=== PATIENT | female | born 1945 | race Caucasian/White ===

== ENCOUNTER 2024-02-26 13:42 | Inpatient (IN) | payer MEDICARE, MEDICAID, SELFPAY ==
--- NOTE | 2024-02-26 | ECG_ITS ---
Test Reason : weakness Blood Pressure : / mmHG Vent. Rate : 077 BPM Atrial Rate : 000 BPM P-R Int : 000 ms QRS Dur : 076 ms QT Int : 422 ms P-R-T Axes : 000 049 075 degrees QTc Int : 477 ms Normal sinus rhythm Nonspecific ST and T wave abnormality Abnormal ECG When compared with ECG of 03-OCT-2009 10:29, QT has lengthened Referred By: Generic ED Physician Electronically Signed By:Benjy Alan
--- NOTE | ~2024-02-26 | CT_ITS ---
EXAMINATION: CT ABDOMEN AND PELVIS WITHOUT CONTRAST CLINICAL INFORMATION: Renal colic, hematuria. COMPARISON: None available. TECHNIQUE: Multidetector volumetric imaging was performed from the superior aspect of the liver through the pubic symphysis. Sagittal and coronal reformatted images were obtained on the technologist's workstation. This CT examination was performed using dose optimization techniques as appropriate, variously including the following: *Automated exposure control *Adjustment of mA and/or kV according to patient size (this includes techniques or standardized protocols for targeted exams where dose is matched to indication/reason for exam; i.e. extremities or head) *Use of iterative reconstruction technique DLP: 319 mGy-cm FINDINGS: The lack of intravenous contrast limits evaluation of the solid visceral organs including the liver, spleen, pancreas, and kidneys. LUNG BASES: Group of peribronchial nodules in the lingula largest measuring up to 1 cm (4:29). Few up to 0.4 cm more isolated pulmonary nodules for example in the right lower lobe (4:26) and right middle lobe (4:1). Partially seen multivessel coronary artery calcifications. LIVER, GALLBLADDER, AND BILIARY TREE: Decreased attenuation of liver parenchyma suggesting hepatic steatosis, otherwise the liver is normal in morphology and size without focal lesion. Distortion of the left hepatic lobe with flattening of the contour likely combination of congenital variation as well as some mass effect from increased intra-abdominal fat and overlying transverse colon. The gallbladder is not visualized, either surgically removed or decompressed. The common bile duct is dilated measuring up to 1.1 cm in diameter; scattered calcifications in proximity with the duct appeared to be adjacent rather than intraluminal, although evaluation is limited due to motion and volume averaging. No intrahepatic biliary ductal dilatation. PANCREAS: Marked atrophy with innumerable calcifications suggesting sequela of chronic pancreatitis. The main pancreatic duct is diffusely dilated and slightly beaded measuring up to 0.6 cm in diameter. In the region of the pancreatic head there are scattered areas of soft tissue fullness for example measuring 1.2 x 1.1 cm on image 37 series 3 and 2.4 x 1.8 cm on image 35 series 3 which likely correlate with residual nonatrophic parenchymal islands, though are incompletely characterize in the absence of priors and absence of intravenous contrast. No significant peripancreatic inflammatory changes to suggest acute pancreatitis at this time. SPLEEN: Few splenules are seen. Normal size. ADRENAL GLANDS: Unremarkable. KIDNEYS AND URETERS: Punctate nonobstructive calculus in the upper pole of the right kidney. No hydronephrosis. No perinephric fat stranding. Several benign-appearing low-density cysts, for which no imaging follow-up is recommended. Intermediate density 1 cm partially exophytic observation in the posterior aspect of the upper left kidney (3:29). BLADDER: Unremarkable. GASTROINTESTINAL TRACT: Scattered prominence of the small and large bowel with moderate degree of stool content in the colon and some fecalization of the small bowel. Colonic diverticulosis without significant pericolonic inflammatory changes. ABDOMINAL WALL: No significant hernia is appreciated. LYMPH NODES: No lymphadenopathy. VASCULAR: Severe atherosclerotic disease. 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 PELVIC VISCERA: Hysterectomy. OSSEOUS STRUCTURES: Severe intervertebral disc height loss with endplate degenerative changes and grade 1 anterolisthesis L4-L5. Partially seen total left hip arthroplasty. No acute or aggressive appearing osseous findings. CT/CT abdomen pelvis wo IV con IMPRESSION: Mild diffuse prominence of the small and large bowel with moderate colonic stool burden and small bowel fecalization suggesting ileus or constipation. Chronic pancreatitis with severe atrophy and a beaded dilated duct; regions of soft tissue fullness in the pancreatic head are likely related with residual islands of parenchyma. However, as patients with chronic pancreatitis have elevated risk of pancreatic malignancy, further characterization with outpatient abdominal MRI pancreas protocol is advised. Nonspecific dilatation of the common bile duct. Consider further evaluation with MRCP for choledocholithiasis or other obstructive abnormalities as clinically warranted. There is no significant intrahepatic biliary ductal dilatation. Hepatic steatosis. Intermediate density 1 cm observation in the upper pole of the left kidney, possibly proteinaceous/hemorrhagic cyst, although solid neoplasm is not excluded. Recommend correlation with renal ultrasound. This could also be characterize at the moment of the MRI for the pancreatic evaluation. Incidentally noted pulmonary nodules, including a group of peribronchial nodules in the lingula suspicious for infectious/inflammatory process. Recommend follow-up with CT chest in 3-6 months. 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 Based on published guidelines in J Am Tia Radiol 2013; 10(10):789-794 and J Vasc Surg. 2018; 67:2-77, the recommendation for an abdominal aorta with diameter 2.6-2.9 cm is follow-up every 5 years if the aorta that meets the criteria for AAA (>1.5 x proximal normal segment; no f/u if < 1.5 x proximal normal segment; no f/u for aorta < 2.6 cm). Electronically signed by: Lindsay Phillips MD 02/26/2024 06:46 PM [place]
--- NOTE | ~2024-02-26 | MR_ITS ---
EXAMINATION: MR ABDOMEN WITHOUT AND WITH CONTRAST CLINICAL INFORMATION: ?CBD dilation, renal mass, abnormal pancreas COMPARISON: Renal ultrasound dated 02/26/2024. CT scan of the abdomen and pelvis dated 02/26/2024. TECHNIQUE: An MRI scan of the abdomen was performed using multiple imaging sequences and imaging planes. 5 mL of intravenous Gadavist was given and postcontrast enhanced dynamic evaluation was performed. FINDINGS: LIVER: Liver normal size. There is diffuse loss in signal on the opposed phase dual echo sequences, consistent with diffuse hepatic steatosis.. No focal cystic or solid mass. Hepatic and portal veins patent. GALLBLADDER, BILIARY TREE: Gallbladder is surgically absent. There is mild intrahepatic ductal dilatation. Common bile duct is dilated, measuring up to 0.8 cm in diameter. The MRCP sequences are limited. There is amorphous linear signal seen throughout the common bile duct and extending into the left hepatic duct, likely related to artifactual flow signal. There is no definite evidence of choledocholithiasis or other focal mass. There is low insertion of the cystic duct remnant onto the distal common bile duct. The cystic duct remnant is decompressed and unremarkable. PANCREAS: Markedly atrophic with marked fatty replacement. There is resultant pancreatic ductal dilatation, measuring up to 0.5 cm in diameter in the pancreatic body and 0.7 cm in diameter in the pancreatic head down to the ampulla. The pancreatic duct in the pancreatic tail tapers to 0.2 cm. No obstructing stone or mass is seen. The densities described on CT scan in the pancreatic head likely represent residual nonatrophied pancreatic parenchyma. No definite pancreatic head mass is noted. SPLEEN: Normal size and appearance. Small accessory splenules are seen in the splenic hilar region. Splenic vein patent. ADRENAL GLANDS AND KIDNEYS: Adrenal glands normal. Kidneys bilaterally symmetric in size and function. There are multiple variably sized T2 bright nonenhancing cysts in the kidneys bilaterally, largest of which is an exophytic lower pole right renal 4 x 3.1 cm cyst. Corresponding to the CT scan finding of a 1 cm upper pole left renal hyperdense mass, there is a exophytic 1 x 0.8 cm T1 bright and T2 intermediate dark mass seen, which demonstrates no enhancement postcontrast and is consistent with a hemorrhagic/proteinaceous cyst. These benign cysts warrant no specific imaging follow-up. No suspicious focal renal mass, hydronephrosis, or perinephric stranding. GASTROINTESTINAL TRACT: Grossly within normal limits. LYMPHOVASCULAR STRUCTURES: Abdominal aorta normal in caliber with moderate atherosclerotic plaque seen. No periaortic collections. No abdominal adenopathy or free fluid collection. MUSCULOSKELETAL STRUCTURES: There is severe degenerative disc disease in the L4-5 level with marked disc space narrowing and vertebral endplate irregularities signal changes. Grade 1 anterolisthesis of L4 on L5 is seen with mild posterior disc bulge. There is mild degenerative disc disease at L3-4. MR/MR abdomen wo/w con IMPRESSION: * As noted on the CT scan, there is diffuse atrophy of the pancreas consistent with chronic calcific pancreatitis given the multiple calcifications seen on CT scan. No definite pancreatic head mass is seen. The masslike finding in the pancreatic head on CT scan likely represents residual nonatrophied pancreatic parenchyma. * There is mild intrahepatic and extrahepatic ductal dilatation with the common bile duct measuring up to 0.8 cm in diameter. No definite choledocholithiasis or other focal mass is seen. Findings are likely secondary to the patient's postcholecystectomy state and age. * Diffuse hepatic steatosis. * Benign exophytic upper pole left renal hemorrhagic/proteinaceous cyst. Other scattered bilateral benign simple renal cysts. No imaging follow-up is warranted. * Moderate atherosclerotic disease of the aorta. * Severe degenerative disc disease at L4-5 with grade 1 anterolisthesis of L4 on L5 and mild degenerative disc disease at L3-4. Electronically signed by: Rachelle De La Garza MD 02/28/2024 10:09 AM [place]
--- NOTE | ~2024-02-26 | US_ITS ---
EXAMINATION: US RETROPERITONEAL LIMITED, LEFT(RENAL ONLY) CLINICAL INFORMATION: Left upper pole renal lesion. COMPARISON: CT abdomen/pelvis dated 02/26/2024. TECHNIQUE: Grayscale, Doppler, and cine images of the left kidney were obtained. FINDINGS: LEFT KIDNEY: 8.7 x 4.2 x 3.5 cm (SAG x AP x TRV). The kidney is normal in size and shape. Increased parenchymal echogenicity with cortical thinning which can be seen in the setting of medical renal disease. Multiple simple-appearing renal cysts, the largest of which is within the upper pole measuring up to 1.6 x 1.3 x 1.3 cm. The previously seen exophytic, indeterminate structure on the CT is not well visualized on ultrasound examination. No calculi or hydronephrosis. US/US renal LT IMPRESSION: 1. Previously seen exophytic, indeterminate structure on the CT is not well visualized on ultrasound examination. 2. Increased left renal echogenicity with cortical thinning, which can be seen in the setting of medical renal disease. 3. Multiple simple-appearing left renal cysts measuring up to 1.6 cm. Electronically signed by: Shaun Denson MD 02/27/2024 08:48 AM [facility]
[2024-02-26 13:46] VITALS: BMI 21.1
[2024-02-26 13:52] VITALS: BP 106/67; PULSE 75; RESP 16; TEMP 36.4; O2SAT 98
[2024-02-26 13:55] LABS: Glucose, Whole Blood 44 mg/dL (60-115)
--- NOTE | 2024-02-26 14:00 | PC.NURSE ---
tracey from home - called d/t pt c/o dizziness/weakness/confused after she took a nap and woke up at noon. unable to get up. hx DM - POC upon EMS arrival = 65mg/dL. 10g PO dextrose. s/p dextrose = 61mg/dL. pt verbalizes sx subsided upon ED arrival. upon ED arrival - a&ox4. vss and up to date. 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 POC = 44mg/dL. pt provided w/ orange juice, sugar packets, sandwich, crackers. effectiveness pending. 20gIV placed in the left forearm - labs obtained/sent to lab by [facility]. ekg performed. pt on RA w/o difficulty. no sob/wob noted. respirations even/unlabored. bedside for support. plan of care ongoing. call pérez placed within reach.
[2024-02-26 14:31] LABS: Basophils Percent Auto 0.2 % (0-2); Eosinophils Percent Auto 0.1 % (0-4); Hematocrit 38.4 % (37.0-47.0); Hemoglobin 12.9 g/dl (12.0-16.0); Imm Gran Abs Auto 0.11 X10*3/uL (0.00-0.03); Imm Gran Pct Auto 0.7 % (0.0-0.4); Lymphocytes Absolute Auto 1.7 X10*3/uL (1.2-4.9); Lymphocytes Percent Auto 9.9 % (20-40); MANUAL DIFF FLAG NO; Mean Corpuscular HGB Conc 33.6 g/dl (31.0-35.0); Mean Corpuscular Hemoglobin 30.4 pg (27.0-33.0); Mean Corpuscular Volume 90.6 fL (80.0-98.0); Monocytes Absolute Auto 0.8 X10*3/uL (0.1-1.2); Monocytes Percent Auto 4.8 % (2-11); Neutrophils Absolute Auto 14.1 x10*3/uL (2.0-8.3); Neutrophils Percent Auto 84.3 % (45-73); Platelet Count 358 X10*3/uL (160-400); Red Blood Count 4.24 X10*6/uL (4.20-5.50); Red Cell Distribution Width 14.4 % (11.0-16.0); White Blood Count 16.7 X10*3/uL (4.8-10.8)
[2024-02-26 14:42] LABS: Glucose, Whole Blood 93 mg/dL (60-115)
[2024-02-26 14:44] LABS: Alanine Aminotransferase 152 U/L (0-31); Albumin Level 2.9 g/dL (3.5-5.0); Anion Gap 16 (12-20); Aspartate Amino Transferase 156 U/L (5-31); Bilirubin Total 0.7 mg/dL (0.0-1.0); Blood Urea Nitrogen 32 mg/dL (9-16); Calcium 8.4 mg/dL (8.4-10.2); Carbon Dioxide 21 mmol/L (22-29); Chloride 104 mmol/L (96-108); Creatinine Clr Calc Pharmacy 12.5; Estimated Glomerular Filt Rate 17; Glucose Random 116 mg/dL (60-115); Potassium 3.5 mmol/L (3.3-5.1); Sodium 137 mmol/L (135-145); Total Protein 5.4 g/dL (6.5-8.0)
--- NOTE | 2024-02-26 14:50 | PC.NURSE ---
repeat POC = 93mg/dL s/p PO administration. pt remains in no apparent distress. no sob/wob noted. respirations even/unlabored. plan of care ongoing.
[2024-02-26 15:02] LABS: Alkaline Phosphatase 107 U/L (39-117)
[2024-02-26 16:20] VITALS: BP 104/59; PULSE 83; RESP 16; TEMP 36.2
[2024-02-26 16:30] LABS: Appearance Urine Cloudy; Color Urine Yellow; Glucose Urine UA 500 mg/dL (Negative); Leukocyte Esterase Urine Moderate (2+) (Negative); Nitrite Urine Negative (Negative); PH 5.5 (5.0-9.0); Specific Gravity - Urine 1.015 (1.005-1.025); UMIC TRIGGER UACC YES; Urine Blood Large (3+) (Negative); Urine Ketones Negative (Negative); Urine Protein 30 (1+) mg/dL (Neg-Trace)
[2024-02-26 17:07] LABS: Bacteria Urine None Seen (None Seen); Granular Casts Urine Present; Influenza A PCR NEGATIVE (Negative); Influenza B PCR NEGATIVE (Negative); Renal Epithelial Cells Urine Present; Resp Syncy Virus RNA Qual PCR NEGATIVE (Negative); SARS COV2 PCR INHOUSE POSITIVE (Negative); Transitional Epi Cells Urine Present; UACC Culture Trigger YES; WBC Urine >50 /HPF (0-5)
--- NOTE | 2024-02-26 17:31 | PC.NURSE ---
pt to CT at this time.
[2024-02-26 17:44] LABS: Glucose, Whole Blood 354 mg/dL (60-115)
[2024-02-26] MEDS: 0.9 % Sodium Chloride 1,000 ML 999 ML IV (17:44)
[2024-02-26] MEDS: cefTRIAXone sodium 2 GM VIAL IVPUSH (17:45)
--- NOTE | 2024-02-26 17:56 | PC.NURSE ---
IV dextrose not administered per provider order as pt's most recent POC = 354mg/dL. provider notified/aware. otherwise IVF/abx administered per provider order. pt waiting for CT results to come back at this time. resting in no apparent distress. bedside for support.
[2024-02-26 18:28] VITALS: BP 154/57; PULSE 86; RESP 14; O2SAT 100
--- NOTE | 2024-02-26 18:58 | ED.WEAKNESS ---
HPI - Weakness General Chief complaint: Weakness Stated complaint: WEAKNESS,CONFUSION,DIZZY,LOW BLOOD SUGAR Time Seen by Provider: 02/26/24 15:23 Source: patient Limitations: no limitations History of Present Illness ED Provider: Kristie Spears PA-C HPI Narrative: 78-year-old female with a history of insulin-dependent diabetes presents with a weakness. Patient woke up from a nap this afternoon, she felt extremely weak, her blood sugar was noted to be 65 on arrival. Patient states she is feeling well now she has eaten and drank some juice. Denies recent cough or cold symptoms, nausea, vomiting, fevers, dysuria or hematuria. Patient denies that she took too much of her scheduled insulin. Related Data Allergies Allergy/AdvReac Type Severity Reaction Status Date / Time No Known Allergies Allergy Verified 02/26/24 13:48 Review of Systems Review of Systems: Yes all other systems are reviewed and are negative Constitutional: Constitutional: Denies fatigue, Denies fever(s) and Reports weakness Cardiovascular: Cardiovascular: Denies chest pain and Denies dyspnea Respiratory: Respiratory: Denies cough and Denies dyspnea Gastrointestinal: Gastrointestinal: Denies abdominal pain, Denies diarrhea, Denies nausea and Denies vomiting Genitourinary: Genitourinary: Denies hematuria and Denies dysuria Neurologic: Reports weakness Endocrine: Endocrine: Denies fatigue PMFSH Past Medical History Attestation statement: The following information was validated with the patient. Social History Social History Smoked in Last 30 Days: No Use of substances other than those prescribed or required for medical reasons: No Advance Directives: Yes Advance Directives Information Provided: Yes Advance Directives on File: No Do you have a plan to hurt others: No Plan Physical Exam Vital Signs: Vital Signs: Last Vital Signs Temp 97.2 F 02/26/24 16:20 Pulse 86 02/26/24 18:28 Resp 14 02/26/24 18:28 BP 154/57 H 02/26/24 18:28 Pulse Ox 100 02/26/24 18:28 O2 Del Method Room Air 02/26/24 18:28 BMI result Body Mass Index 21.1 Course Reevaluation(s) Reevaluation #1: Patient is passing a large amount of hematuria, she is not having flank pain or nausea, likely not renal colic, however she should not be passing this much hematuria. We will obtain a CT scan a non-con study. Medications Administered Discontinued Medications Generic Name Dose Route Start Last Admin Trade Name Sam PRN Reason Stop Dose Admin Ceftriaxone Sodium 2 gm 02/26/24 17:20 02/26/24 17:45 Ceftriaxone Sodium 2 Gm Vial IVPUSH 02/26/24 17:21 2 gm ONCE ONE Administration Dextrose 25 gm 02/26/24 17:20 02/26/24 17:40 Dextrose 25 % 2.5 Gm/10 Ml Syringe IVPUSH 02/26/24 17:21 Not Given ONCE ONE Sodium Chloride 1,000 mls @ 999 mls/hr 02/26/24 17:15 02/26/24 17:44 Ns IV 02/26/24 18:15 999 mls/hr .Q1H1M JENIFFER Administration Medical Decision Making Medical Decision Making [facility] Narrative: 78-year-old female with a history of insulin-dependent diabetes presents with a weakness. Patient woke up from a nap this afternoon, she felt extremely weak, her blood sugar was noted to be 65 on arrival. Patient states she is feeling well now she has eaten and drank some juice. Denies recent cough or cold symptoms, nausea, vomiting, fevers, dysuria or hematuria. Patient denies that she took too much of her scheduled insulin. Problem: Insulin dependent diabetes History: Per patient I have considered the following differential diagnoses: Plan: In regard to the weakness, the patient woke with the hypoglycemia, this makes sense. Her screening labs have resulted, she has a significant ANGELA, this most certainly could be contributory. We rechecked her sugar it is greater than 300 at this time, we will start IV fluid. The patient is giving a urine sample now. I am also adding a viral panel, despite the absence of concurrent viral syndrome. I have independently reviewed the following tests: Labs: Leukocytosis with left shift, not anemic, no electrolyte abnormality, point of care sugar 44, then 93, then 354 after food, urine is questionable for infection, passing a large amount of blood, numerous white cells, however no nitrites or bacteria, likely contaminated sample, patient positive for COVID CT abdomen and pelvis: CT/CT abdomen pelvis wo IV con IMPRESSION: Mild diffuse prominence of the small and large bowel with moderate colonic stool burden and small bowel fecalization suggesting ileus or constipation. Chronic pancreatitis with severe atrophy and a beaded dilated duct; regions of soft tissue fullness in the pancreatic head are likely related with residual islands of parenchyma. However, as patients with chronic pancreatitis have elevated risk of pancreatic malignancy, further characterization with outpatient abdominal MRI pancreas protocol is advised. Nonspecific dilatation of the common bile duct. Consider further evaluation with MRCP for choledocholithiasis or other obstructive abnormalities as clinically warranted. There is no significant intrahepatic biliary ductal dilatation. Hepatic steatosis. Intermediate density 1 cm observation in the upper pole of the left kidney, possibly proteinaceous/hemorrhagic cyst, although solid neoplasm is not excluded. Recommend correlation with renal ultrasound. This could also be characterize at the moment of the MRI for the pancreatic evaluation. Incidentally noted pulmonary nodules, including a group of peribronchial nodules in the lingula suspicious for infectious/inflammatory process. Recommend follow-up with CT chest in 3-6 months. 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 Based on published guidelines in J Am Tia Radiol 2013; 10(10):789-794 and J Vasc Surg. 2018; 67:2-77, the recommendation for an abdominal aorta with diameter 2.6-2.9 cm is follow-up every 5 years if the aorta that meets the criteria for AAA (>1.5 x proximal normal segment; no f/u if < 1.5 x proximal normal segment; no f/u for aorta < 2.6 cm). Electronically signed by: Lindsay Phillips MD 02/26/2024 06:46 PM [facility] With this new finding of a left renal mass that potentially could be a neoplasm, with concurrent hematuria, and an ANGELA, I feel the patient should be admitted for further assessment. Lab Data 02/26/24 14:18 02/26/24 14:18 Labs: Lab Results 02/26/24 02/26/24 02/26/24 Range/Units 13:52 14:18 14:36 WBC 16.7 H (4.8-10.8) X10*3/uL RBC 4.24 (4.20-5.50) X10*6/uL Hgb 12.9 (12.0-16.0) g/dl Hct 38.4 (37.0-47.0) % MCV 90.6 (80.0-98.0) fL MCH 30.4 (27.0-33.0) pg MCHC 33.6 (31.0-35.0) g/dl RDW 14.4 (11.0-16.0) % Plt Count 358 (160-400) X10*3/uL MPV 10.0 (9.4-12.3) fL Immature Gran % (Auto) 0.7 H (0.0-0.4) % Neut % (Auto) 84.3 H (45-73) % Lymph % (Auto) 9.9 L (20-40) % [place] % (Auto) 4.8 (2-11) % Eos % (Auto) 0.1 (0-4) % Baso % (Auto) 0.2 (0-2) % Lymph # (Auto) 1.7 (1.2-4.9) X10*3/uL [place] # (Auto) 0.8 (0.1-1.2) X10*3/uL Eos # (Auto) 0.0 (0.0-0.4) X10*3/uL Baso # (Auto) 0.0 (0.0-0.2) X10*3/uL Abs Immat Gran (auto) 0.11 H (0.00-0.03) X10*3/uL Absolute Neuts (auto) 14.1 H (2.0-8.3) x10*3/uL Absolute Nucleated RBC 0.000 (0.0-0.012) X10*3/uL Nucleated RBC % (auto) 0.0 (0.0-0.2) /100WBC Sodium 137 (135-145) mmol/L Potassium 3.5 (3.3-5.1) mmol/L Chloride 104 (96-108) mmol/L Carbon Dioxide 21 L (22-29) mmol/L Anion Gap 16 (12-20) BUN 32 H (9-16) mg/dL Creatinine 2.75 H (0.5-1.4) mg/dL Estim Creat Clear Calc 12.5 Estimated GFR 17 POC Glucose 44 L* 93 (60-115) mg/dL Random Glucose 116 H (60-115) mg/dL Calcium 8.4 (8.4-10.2) mg/dL Total Bilirubin 0.7 (0.0-1.0) mg/dL AST 156 H (5-31) U/L ALT 152 H (0-31) U/L Alkaline Phosphatase 107 (39-117) U/L Total Protein 5.4 L (6.5-8.0) g/dL Albumin 2.9 L (3.5-5.0) g/dL Urine Color Urine Appearance Urine pH (5.0-9.0) Ur Specific [place] (1.005-1.025) Urine Protein (Neg-Trace) mg/dL Urine Glucose (UA) (Negative) mg/dL Urine Ketones (Negative) mg/dL Urine Blood (Negative) Urine Nitrite (Negative) Ur Leukocyte Esterase (Negative) Urine RBC (0-2) /HPF Urine WBC (0-5) /HPF Ur Squamous Epith Cells (0-2) /HPF Ur Transition Epith Cell Ur Renal Epithelial Cell Urine Bacteria (None Seen) Hyaline Casts (0-2) /LPF Granular Casts Influenza Type A (PCR) (Negative) Influenza Type B (PCR) (Negative) RSV RNA Qual (PCR) (Negative) SARS-CoV-2 RNA (RT-PCR) (Negative) 02/26/24 02/26/24 Range/Units 16:18 17:39 WBC (4.8-10.8) X10*3/uL RBC (4.20-5.50) X10*6/uL Hgb (12.0-16.0) g/dl Hct (37.0-47.0) % MCV (80.0-98.0) fL MCH (27.0-33.0) pg MCHC (31.0-35.0) g/dl RDW (11.0-16.0) % Plt Count (160-400) X10*3/uL MPV (9.4-12.3) fL Immature Gran % (Auto) (0.0-0.4) % Neut % (Auto) (45-73) % Lymph % (Auto) (20-40) % [place] % (Auto) (2-11) % Eos % (Auto) (0-4) % Baso % (Auto) (0-2) % Lymph # (Auto) (1.2-4.9) X10*3/uL [place] # (Auto) (0.1-1.2) X10*3/uL Eos # (Auto) (0.0-0.4) X10*3/uL Baso # (Auto) (0.0-0.2) X10*3/uL Abs Immat Gran (auto) (0.00-0.03) X10*3/uL Absolute Neuts (auto) (2.0-8.3) x10*3/uL Absolute Nucleated RBC (0.0-0.012) X10*3/uL Nucleated RBC % (auto) (0.0-0.2) /100WBC Sodium (135-145) mmol/L Potassium (3.3-5.1) mmol/L Chloride (96-108) mmol/L Carbon Dioxide (22-29) mmol/L Anion Gap (12-20) BUN (9-16) mg/dL Creatinine (0.5-1.4) mg/dL Estim Creat Clear Calc Estimated GFR POC Glucose 354 H* (60-115) mg/dL Random Glucose (60-115) mg/dL Calcium (8.4-10.2) mg/dL Total Bilirubin (0.0-1.0) mg/dL AST (5-31) U/L ALT (0-31) U/L Alkaline Phosphatase (39-117) U/L Total Protein (6.5-8.0) g/dL Albumin (3.5-5.0) g/dL Urine Color Yellow Urine Appearance Cloudy Urine pH 5.5 (5.0-9.0) Ur Specific [place] 1.015 (1.005-1.025) Urine Protein 30 (1+) H (Neg-Trace) mg/dL Urine Glucose (UA) 500 H (Negative) mg/dL Urine Ketones Negative (Negative) mg/dL Urine Blood Large (3+) H (Negative) Urine Nitrite Negative (Negative) Ur Leukocyte Esterase Moderate (2+) H (Negative) Urine RBC 11-20 H (0-2) /HPF Urine WBC >50 H (0-5) /HPF Ur Squamous Epith Cells 6-10 (0-2) /HPF Ur Transition Epith Cell Present Ur Renal Epithelial Cell Present Urine Bacteria None Seen (None Seen) Hyaline Casts 11-20 (0-2) /LPF Granular Casts Present Influenza Type A (PCR) NEGATIVE (Negative) Influenza Type B (PCR) NEGATIVE (Negative) RSV RNA Qual (PCR) NEGATIVE (Negative) SARS-CoV-2 RNA (RT-PCR) POSITIVE A (Negative) Discharge Plan Discharge Patient Disposition: Admitted As Inpatient Print Language: Rw[place]an
--- NOTE | 2024-02-26 19:01 | PC.NURSE ---
Karthik ([facility]) [phone]
[2024-02-26 19:26] VITALS: BP 138/77; PULSE 85; RESP 11
--- NOTE | 2024-02-26 19:49 | PM.IMHP ---
History of Present Illness Date of Service: 02/26/24 Attending physician on admission: Celestine Elliott Chief Complaint: Weakeness, dizziness Pt is a 78-year-old female with a PMH significant for?HTN, CAD/HLD, insulin-dependent type 2 diabetes, peripheral neuropathy, CKD 3, migraines, and GERD who presents to the ED with weakness, confusion, and lethargy. Pt does not remember any events this morning until EMS administered 10g dextrose p.o. reports he went to check on the pt since she was sleeping late and found her to be lethargic, weak, and confused. Was unable to get out of bed. He was able to bring her to the top of the stairs but had to call EMS to help bring her down the stairs. Pt currently reports feeling fine overall, though has has occasionally productive cough and felt weak x4 days. Denies SOB or CHIANG. Notes attended a wake for her sister two days prior to symptom onset. Was prescribed an antibiotic by her concession attendant Dr. Perez of [facility] [place] but has not yet started taking it. States has been eating and drinking normally. No changes to bowel or bladder habits. Denies dysuria or polyuria. No nausea, vomiting, diarrhea. Last bowel movement earlier this evening, reports usually having 1-2 bowel movements daily. Denies abdominal pain. In the ED pt's vitals were stable and largely WNL. Labs were significant for leukocytosis of 16.7, BUN 32 , creatinine 2.75 (elevated from 1.08 on 07/08/2019), initial POC 44, AST 156, ALT 152, and testing positive for COVID. UA positive for protein, glucose, blood, leukocyte esterase, 11-20 RBCs, greater than 50 WBCs, 6-10 epithelial cells, and negative for nitrites and bacteria. CT?of abdomen and pelvis with multiple findings: Showed mild diffuse prominence of small and large bowels with moderate colonic stool burden and small bowel fecalization, suggesting ileus versus constipation; chronic pancreatitis with severe atrophy and beaded dilated duct; nonspecific dilatation of the CBD; intermediate density of 1cm in upper pole of the left kidney, cyst vs neoplasm; and intrarenal abdominal aorta 2.8cm. Pt was treated with dextrose 25 g IV, IVF, and ceftriaxone. Pt will be admitted to the hospital for treatment and further evaluation generalized weakness, confusion, hypoglycemia, and ANGELA in the setting of COVID infection. Review of Systems Review of Systems: Negative except for that which is stated in the [facility] Medical History (Updated 02/26/24 @ 21:51 by ROSE White) Peripheral neuropathy Insulin dependent type 2 diabetes mellitus CAD (coronary artery disease) HTN (hypertension) Social History Smoked in Last 30 Days: No Use of substances other than those prescribed or required for medical reasons: No Advance Directives: Yes Advance Directives Information Provided: Yes Advance Directives on File: No Do you have a plan to hurt others: No Plan Meds Allergies Allergy/AdvReac Type Severity Reaction Status Date / Time No Known Allergies Allergy Verified 02/26/24 13:48 Home Medications ?Medication ?Instructions ?Recorded ?Confirmed ?Last Taken ?Type albuterol sulfate 90 mcg/actuation 2 puff inhalation Q4H PRN 02/26/24 02/26/24 Unknown History aerosol inhaler Shortness Of Breath Or Wheezing atenolol 50 mg tablet 50 mg PO DAILY 02/26/24 02/26/24 02/25/24 History cefaclor 250 mg capsule 250 mg PO DAILY 02/26/24 02/26/24 02/25/24 History clopidogrel 75 mg tablet 75 mg PO DAILY 02/26/24 02/26/24 02/25/24 History empagliflozin 10 mg tablet 10 mg PO DAILY 02/26/24 02/26/24 02/25/24 History (Jardiance) gabapentin 400 mg capsule 400 mg PO BID@2029,222902/26/24 02/26/24 02/25/24 History hydrochlorothiazide 25 mg tablet 25 mg PO DAILY 02/26/24 02/26/24 02/25/24 History insulin glargine 100 unit/mL (3 62 unit subcut DAILY 02/26/24 02/26/24 02/25/24 History mL) subcutaneous pen (Basaglar KwikPen U-100 Insulin) meclizine 25 mg tablet 25 mg PO QID 02/26/24 02/26/24 02/25/24 History montelukast 10 mg tablet 10 mg PO BEDTIME 02/26/24 02/26/24 02/25/24 History omeprazole 40 mg capsule,delayed 40 mg PO BID@0630,1630 02/26/24 02/26/24 02/25/24 History release potassium chloride 20 mEq 20 meq PO DAILY 02/26/24 02/26/24 02/25/24 History tablet,extended release ropinirole 2 mg tablet 2 mg PO BEDTIME@0830 02/26/24 02/26/24 02/25/24 History rosuvastatin 40 mg tablet 40 mg PO DAILY 02/26/24 02/26/24 02/25/24 History semaglutide 1 mg/dose (4 mg/3 mL) 1 mg subcut FR 02/26/24 02/26/24 02/19/24 History subcutaneous pen injector (Ozempic) sumatriptan succinate 100 mg tablet 100 mg PO NEEDED migraine 02/26/24 02/26/24 Unknown History trospium 20 mg tablet 20 mg PO BID 02/26/24 02/26/24 02/25/24 History valsartan 160 mg tablet 160 mg PO DAILY 02/26/24 02/26/24 02/25/24 History zolpidem 5 mg tablet 5 mg PO BEDTIME PRN insomnia 02/26/24 02/26/24 Unknown History Physical Exam Vital Signs and Narrative: Vital Signs: Last Vital Signs Temp 97.2 F 02/26/24 16:20 Pulse 85 02/26/24 19:26 Resp 11 L 02/26/24 19:26 BP 138/77 02/26/24 19:26 Pulse Ox 100 02/26/24 18:28 O2 Del Method Room Air 02/26/24 18:28 BMI result Body Mass Index 21.1 General: AOx3, no acute distress Resp: CTA bilaterally CVS: S1, S2, RRR GI: +BS, NT, no distention Skin: Warm, dry Neuro: Cranial nerves II-XII grossly intact bilaterally. Motor grossly intact bilaterally Extremities: No edema Psych: Appropriate affect Results Labs 02/26/24 14:18 02/26/24 14:18 Labs: Laboratory Results - last 24 hr 02/26/24 02/26/24 02/26/24 13:52 14:18 14:36 MCV 90.6 MCH 30.4 MCHC 33.6 RDW 14.4 Plt Count 358 MPV 10.0 Immature Gran % (Auto) 0.7 H Neut % (Auto) 84.3 H Lymph % (Auto) 9.9 L Wallace % (Auto) 4.8 Eos % (Auto) 0.1 Baso % (Auto) 0.2 Lymph # (Auto) 1.7 Wallace # (Auto) 0.8 Eos # (Auto) 0.0 Baso # (Auto) 0.0 Abs Immat Gran (auto) 0.11 H Absolute Neuts (auto) 14.1 H Absolute Nucleated RBC 0.000 Nucleated RBC % (auto) 0.0 Anion Gap 16 Estim Creat Clear Calc 12.5 Estimated GFR 17 POC Glucose 44 L* 93 Random Glucose 116 H Calcium 8.4 Total Bilirubin 0.7 AST 156 H ALT 152 H Alkaline Phosphatase 107 Total Protein 5.4 L Albumin 2.9 L Urine Color Urine Appearance Urine pH Ur Specific [place] Urine Protein Urine Glucose (UA) Urine Ketones Urine Blood Urine Nitrite Ur Leukocyte Esterase Urine RBC Urine WBC Ur Squamous Epith Cells Ur Transition Epith Cell Ur Renal Epithelial Cell Urine Bacteria Hyaline Casts Granular Casts Influenza Type A (PCR) Influenza Type B (PCR) RSV RNA Qual (PCR) SARS-CoV-2 RNA (RT-PCR) 02/26/24 02/26/24 16:18 17:39 MCV MCH MCHC RDW Plt Count MPV Immature Gran % (Auto) Neut % (Auto) Lymph % (Auto) Wallace % (Auto) Eos % (Auto) Baso % (Auto) Lymph # (Auto) Wallace # (Auto) Eos # (Auto) Baso # (Auto) Abs Immat Gran (auto) Absolute Neuts (auto) Absolute Nucleated RBC Nucleated RBC % (auto) Anion Gap Estim Creat Clear Calc Estimated GFR POC Glucose 354 H* Random Glucose Calcium Total Bilirubin AST ALT Alkaline Phosphatase Total Protein Albumin Urine Color Yellow Urine Appearance Cloudy Urine pH 5.5 Ur Specific [place] 1.015 Urine Protein 30 (1+) H Urine Glucose (UA) 500 H Urine Ketones Negative Urine Blood Large (3+) H Urine Nitrite Negative Ur Leukocyte Esterase Moderate (2+) H Urine RBC 11-20 H Urine WBC >50 H Ur Squamous Epith Cells 6-10 Ur Transition Epith Cell Present Ur Renal Epithelial Cell Present Urine Bacteria None Seen Hyaline Casts 11-20 Granular Casts Present Influenza Type A (PCR) NEGATIVE Influenza Type B (PCR) NEGATIVE RSV RNA Qual (PCR) NEGATIVE SARS-CoV-2 RNA (RT-PCR) POSITIVE A Imaging Radiologist's Impressions: Impressions Abdomen/Pelvis CT 02/26/24 17:32 IMPRESSION: Mild diffuse prominence of the small and large bowel with moderate colonic stool burden and small bowel fecalization suggesting ileus or constipation. Chronic pancreatitis with severe atrophy and a beaded dilated duct; regions of soft tissue fullness in the pancreatic head are likely related with residual islands of parenchyma. However, as patients with chronic pancreatitis have elevated risk of pancreatic malignancy, further characterization with outpatient abdominal MRI pancreas protocol is advised. Nonspecific dilatation of the common bile duct. Consider further evaluation with MRCP for choledocholithiasis or other obstructive abnormalities as clinically warranted. There is no significant intrahepatic biliary ductal dilatation. Hepatic steatosis. Intermediate density 1 cm observation in the upper pole of the left kidney, possibly proteinaceous/hemorrhagic cyst, although solid neoplasm is not excluded. Recommend correlation with renal ultrasound. This could also be characterize at the moment of the MRI for the pancreatic evaluation. Incidentally noted pulmonary nodules, including a group of peribronchial nodules in the lingula suspicious for infectious/inflammatory process. Recommend follow-up with CT chest in 3-6 months. 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 Based on published guidelines in J Am Tia Radiol 2013; 10(10):789-794 and J Vasc Surg. 2018; 67:2-77, the recommendation for an abdominal aorta with diameter 2.6-2.9 cm is follow-up every 5 years if the aorta that meets the criteria for AAA (>1.5 x proximal normal segment; no f/u if < 1.5 x proximal normal segment; no f/u for aorta < 2.6 cm). Electronically signed by: Lindsay Phillips MD 02/26/2024 06:46 PM EST Assessment and Plan (1) ANGELA (acute kidney injury): Status: Acute (2) Hypoglycemia: Status: Acute Plan Pt is a 78-year-old female with a PMH significant for?HTN, CAD/HLD, COPD, insulin-dependent type 2 diabetes, peripheral neuropathy, CKD 3, migraines, and GERD who presents to the ED with weakness, confusion, and lethargy. Pt will be admitted to the hospital for treatment and further evaluation generalized weakness, confusion, hypoglycemia, and ANGELA in the setting of COVID infection. ANGELA Creatinine 2.75 at time of presentation Last creatinine in system 1.08 on 07/08/19, unknown current baseline [place] [facility] Received IVF in the ED Will place on maintenance fluids Attempt to get recent labs [place] [facility] [place] Hold hydrochlorothiazide, valsartan Neprhology consult Check CPK Trend renal function Hypoglycemia Initial POC 65 by EMS, 44 at time of presentation to ED Pt received 10 g p.o. dextrose, food and juice Place on sliding scale insulin, Lantus Hold Jardiance Diabetic diet Acute COVID infection Pt with fatigue, cough x4 days Attended wake 2 days prior to symptom onset Not hypoxic Treat symptomatically Airborne and contact precautions Weakness, lethargy, confusion Pt unable to get out of bed or ambulate this morning Likely multifactorial: in the setting of COVID and hypoglycemia Treat as above PT consult Question of left renal mass Will get left renal US Consider urology consult depending on findings Abnormal UA Likely contaminated Will empirically treat with ceftriaxone, started 02/26/2024 No sepsis: Leukocytosis secondary to viral COVID infection Follow urine cultures Chronic pancreatitis Recommendation is for outpatient MRI w/contrast of pancreas CAD/HLD Continue statin, Plavix HTN Continue atenolol Hold hydrochlorothiazide and valsartan due to ANGELA COPD Not in acute exacerbation Continue home inhalers Peripheral neuropathy Continue gabapentin, ropinirole Full Code Attending:?Dr. Mata DVT Prophylaxis: Heparin Pt will require a hospitalization of at least two nights for treatment of?hypoglycemia, ANGELA, weakness, and confusion in the setting of acute COVID infection. Patient will require administration of IV fluids, close monitoring of labs, and specialist consultation with Nephrology. Quality Stroke Does the patient have a stroke diagnosis?: No VTE Prior VTE?: No VTE Risk Level:: Medical - moderate - high VTE Device Contraindication: Treatment Not Indicated VTE Drug Contraindication: N/A - Med Ordered
--- NOTE | 2024-02-26 20:43 | PHA.MEDREC ---
Addendum entered by Giuseppe Mcbride [facility] 02/26/24 20:58: Med rec reviewed Original Note: Pharmacy Consult ? Medication Reconciliation Pharmacy has completed the medication reconciliation. Confirmed medications with patient. She just recently saw her Dr on Thursday and she took her off Vitamin D2 and Gemtesa 75mg tab. She confirmed she has not started the Azithromycin 250mg regimen and states she just picked it up yesterday. She confirmed her Basalglar KwikPen and states she was doing 32 units BID but she went and talked to her daughter and they approved the patient to start doing 62 units at bedtime and the patient has been doing better taking it like that. She confirmed she is taking the Ozempic 1 mg/dose (4 mg/3 mL) once a week and stated she was due today but was not able to do it today but confirmed she took it last Sunday 02/18. She confirmed she took all her medications yesterday.
[2024-02-26] MEDS: Lactated Ringers 1,000 ML 100 ML IVCONT (21:49)
[2024-02-26] MEDS: Meclizine HCl 25 MG TABLET PO (22:40)
[2024-02-26] MEDS: rOPINIRole HCL 2 MG TABLET PO (22:41)
[2024-02-26] MEDS: Montelukast Sodium 10 MG TABLET PO (22:41)
[2024-02-26] MEDS: Heparin Sodium,Porcine 5,000 UNIT/ML VIAL 5000 UNIT SUBCUT (22:41)
[2024-02-26] MEDS: Gabapentin 400 MG CAPSULE PO (23:40)
[2024-02-27 00:59] VITALS: BP 133/80; PULSE 83; RESP 13; TEMP 36.7; O2SAT 100
--- NOTE | 2024-02-27 01:43 | PC.NURSE ---
Patient is alert and oriented x4, pleasant and cooperative, resting on a stretcher bed, watching TV. VSS. Patient denies any pain. Patient requested and given юлия donovan, turkey sandwich, and cheese stick, tolerated well. 20 G IV line in L forearm is patient with LR infusing at 100 ml/hr. Skin is intact. Patient noted to be ambulating to the restroom independently with a steady gait.
[2024-02-27 04:58] VITALS: BP 143/79; PULSE 86; RESP 14; TEMP 36.6; O2SAT 99
[2024-02-27 05:36] VITALS: BMI 20.6
[2024-02-27] MEDS: Omeprazole 40 MG CAPSULE.DR PO ×2 (05:37→18:40)
[2024-02-27 07:33] VITALS: BP 112/60; PULSE 82; RESP 18; TEMP 37.1; O2SAT 97
[2024-02-27 07:52] LABS: Glucose, Whole Blood 36 mg/dL (60-115)
[2024-02-27 08:21] LABS: Glucose, Whole Blood 93 mg/dL (60-115)
[2024-02-27 08:28] LABS: Hematocrit 33.7 % (37.0-47.0); Hemoglobin 11.4 g/dl (12.0-16.0); Mean Corpuscular HGB Conc 33.8 g/dl (31.0-35.0); Mean Corpuscular Hemoglobin 29.8 pg (27.0-33.0); Mean Corpuscular Volume 88.2 fL (80.0-98.0); Mean Platelet Volume 9.9 fL (9.4-12.3); Platelet Count 280 X10*3/uL (160-400); Red Blood Count 3.82 X10*6/uL (4.20-5.50); Red Cell Distribution Width 14.1 % (11.0-16.0); White Blood Count 12.4 X10*3/uL (4.8-10.8)
[2024-02-27 08:54] LABS: Estimated Average Glucose 131 mg/dL; Hemoglobin A1C 140.4996 umol/L; Hemoglobin A1c % 6.2 % (<6.0); Total Hemoglobin (HGBA1C) 3152.5659 umol/L
[2024-02-27 09:05] LABS: Alanine Aminotransferase 179 U/L (0-31); Albumin Level 2.8 g/dL (3.5-5.0); Aspartate Amino Transferase 217 U/L (5-31); Bilirubin Direct 0.2 mg/dL (0.0-0.5); Bilirubin Total 0.4 mg/dL (0.0-1.0)
[2024-02-27 09:15] LABS: Anion Gap 15 (12-20); Blood Urea Nitrogen 24 mg/dL (9-16); Calcium 8.1 mg/dL (8.4-10.2); Carbon Dioxide 21 mmol/L (22-29); Chloride 101 mmol/L (96-108); Creatinine Clr Calc Pharmacy 17.4; Estimated Glomerular Filt Rate 25; Glucose Random 73 mg/dL (60-115); Potassium 2.8 mmol/L (3.3-5.1); Sodium 134 mmol/L (135-145)
[2024-02-27] MEDS: atenoloL 50 MG TABLET PO (09:26)
[2024-02-27] MEDS: Meclizine HCl 25 MG TABLET PO ×4 (09:26→22:26)
[2024-02-27] MEDS: Potassium Chloride ER 20 MEQ TAB.ER.PRT PO (09:26)
[2024-02-27] MEDS: Clopidogrel Bisulfate 75 MG TABLET PO (09:26)
[2024-02-27] MEDS: 0.9 % Sodium Chloride Flush 3 ML SYRINGE IVFLUSH ×2 (09:27→18:40)
[2024-02-27] MEDS: Heparin Sodium,Porcine 5,000 UNIT/ML VIAL 5000 UNIT SUBCUT ×2 (09:27→22:26)
[2024-02-27 09:45] LABS: Alkaline Phosphatase 94 U/L (39-117)
--- NOTE | 2024-02-27 09:52 | MHC.CM.PN ---
Addendum entered by Mary Grace Goins 02/27/24 11:33: Per pts request, a new HCP was completed, now on file. Original Note: IMM 02/26. Pt self-care, lives at home with her . Pts or son to transport her home at discharge. Pt states her is her HCP, copy requested. PCP: Dr. Jose Diaz
[2024-02-27 11:08] LABS: Glucose, Whole Blood 117 mg/dL (60-115)
--- NOTE | 2024-02-27 11:11 | HO.PM.IMPN ---
Subjective Subjective Date of Service: 02/27/24 Interval History: seen and examined this morning follow up for hyponatremia, ANGELA blood sugar 36 this am, patient awake, alert but feeling shaky; improved with po intake no abdominal pain mild cough, no sob, no fever Review of Systems Review of Systems: Yes all other systems are reviewed and are negative Constitutional Constitutional: Denies chills and Reports fever(s) Cardiovascular Cardiovascular: Denies chest pain, Denies palpitations and Denies dyspnea Respiratory Respiratory: Denies dyspnea Endocrine Endocrine: Denies palpitations Physical Exam Vital Signs: Vital Signs: Last Vital Signs Temp 98.8 F 02/27/24 07:33 Pulse 82 02/27/24 07:33 Resp 18 02/27/24 07:33 BP 112/60 02/27/24 07:33 Pulse Ox 97 02/27/24 07:33 O2 Del Method Room Air 02/27/24 07:33 BMI result Body Mass Index 20.6 Const: General: cooperative, comfortable, no acute distress, alert and awake Orientation/consciousness: patient oriented x3 Resp: Effort & Inspection: normal respiratory effort, able to speak in complete sentences, no respiratory distress and no use of accessory muscles Auscultation: clear to auscultation bilaterally Cardio: Rate: regular rate GI: Inspection: No distended Palpation (GI): Soft to palpation and nontender Neuro: General: patient oriented x3, moves all extremities and CN's II-XI intact bilaterally Extrem: General: Yes no pedal edema Objective Data Active Medications Acetaminophen (Acetaminophen 325 Mg Tablet) 650 mg PO Q6H PRN PRN Reason: Pain, Mild (Pain Scale 1-3), fever or headache Albuterol Sulfate (Albuterol Sulfate 90 Mcg 8 Gm Inhaler) 2 puff INHALE Q4H PRN PRN Reason: Shortness Of Breath Or Wheezing Atenolol (Atenolol 50 Mg Tablet) 50 mg PO DAILY [facility]; Protocol Last Admin: 02/27/24 09:26 Dose: 50 mg Documented By: CELINA Calcium Carbonate (Calcium Carbonate 750 Mg Tab.Chew) 750 mg PO Q4H PRN PRN Reason: Heartburn Ceftriaxone Sodium (Ceftriaxone Sodium 1 Gm Vial) 1 gm IVPUSH Q24H [facility] Clopidogrel Bisulfate (Clopidogrel Bisulfate 75 Mg Tablet) 75 mg PO DAILY [facility] Last Admin: 02/27/24 09:26 Dose: 75 mg Documented By: CELINA Gabapentin (Gabapentin 400 Mg Capsule) 400 mg PO BID@2030,2230 [facility] Last Admin: 02/27/24 02:50 Dose: Not Given Documented By: VENTURA Non-Admin Reason: Duplicate entry Glucose (Glucose Gel 15 Gm Gel..Gram.) 15 gm PO Q15M PRN; Protocol PRN Reason: per Hypoglycemia Standing Ord. Guaifenesin/Dextromethorphan (Guaifenesin Dm 200/20/10 Ml 10 Ml Syrup) 10 ml PO Q4H PRN PRN Reason: Cough Heparin Sodium (Porcine) (Heparin Sodium,Porcine 5,000 Unit/Ml Vial) 5,000 unit SUBCUT Q12H [facility] Last Admin: 02/27/24 09:27 Dose: 5,000 unit Documented By: CELINA Dextrose (D10) 250 mls @ 750 mls/hr IV Q15M PRN; Protocol PRN Reason: per Hypoglycemia Standing Ord. Insulin Human Lispro (Insulin Lispro 100 Unit/Ml 3 Ml Vial) 0 unit SUBCUT QIDACHS [facility]; Protocol Last Admin: 02/27/24 08:35 Dose: Not Given Documented By: CELINA Non-Admin Reason: No Insulin Coverage Magnesium Hydroxide (Milk Of Magnesia 30 Ml Oral.Susp) 30 ml PO DAILY PRN PRN Reason: Constipation Meclizine HCl (Meclizine Hcl 25 Mg Tablet) 25 mg PO QID [facility] Last Admin: 02/27/24 09:26 Dose: 25 mg Documented By: CELINA Melatonin (Melatonin 3 Mg Tablet) 6 mg PO BEDTIME PRN PRN Reason: Insomnia Montelukast Sodium (Montelukast Sodium 10 Mg Tablet) 10 mg PO BEDTIME [facility] Last Admin: 02/26/24 22:41 Dose: 10 mg Documented By: VENTURA Omeprazole (Omeprazole 40 Mg Capsule.) 40 mg PO BID@0630,1630 [facility] Last Admin: 02/27/24 05:37 Dose: 40 mg Documented By: YANET Ondansetron HCl (Ondansetron Hcl 4 Mg/2 Ml Vial) 4 mg IVPUSH Q8H PRN PRN Reason: Nausea and Vomiting Potassium Chloride (Potassium Chloride Er 20 Meq Tab.Er.Prt) 20 meq PO DAILY [facility] Last Admin: 02/27/24 09:26 Dose: 20 meq Documented By: CELINA Ropinirole HCl (Ropinirole Hcl 2 Mg Tablet) 2 mg PO BEDTIME@2030 [facility] Last Admin: 02/26/24 22:41 Dose: 2 mg Documented By: VENTUAR Sodium Chloride (0.9 % Sodium Chloride Flush 3 Ml Syringe) 3 ml IVFLUSH QSHIFT [facility] Last Admin: 02/27/24 09:27 Dose: 3 ml Documented By: CELINA Sumatriptan Succinate (Sumatriptan Succinate 100 Mg Tablet) 100 mg PO DAILY PRN PRN Reason: Migraine Headache Zolpidem Tartrate (Zolpidem Tartrate 5 Mg Tablet) 5 mg PO BEDTIME PRN PRN Reason: insomnia Labs 02/27/24 08:01 02/27/24 08:01 Labs: Laboratory Results - last 24 hr 02/26/24 02/26/24 02/26/24 13:52 14:18 14:36 MCV 90.6 MCH 30.4 MCHC 33.6 RDW 14.4 Plt Count 358 MPV 10.0 Immature Gran % (Auto) 0.7 H Neut % (Auto) 84.3 H Lymph % (Auto) 9.9 L [place] % (Auto) 4.8 Eos % (Auto) 0.1 Baso % (Auto) 0.2 Lymph # (Auto) 1.7 [place] # (Auto) 0.8 Eos # (Auto) 0.0 Baso # (Auto) 0.0 Abs Immat Gran (auto) 0.11 H Absolute Neuts (auto) 14.1 H Absolute Nucleated RBC 0.000 Nucleated RBC % (auto) 0.0 Anion Gap 16 Estim Creat Clear Calc 12.5 Estimated GFR 17 POC Glucose 44 L* 93 Random Glucose 116 H Estimat Average Glucose Hemoglobin A1c % Calcium 8.4 Total Bilirubin 0.7 Direct Bilirubin AST 156 H ALT 152 H Alkaline Phosphatase 107 Total Creatine Kinase 1012 H Total Protein 5.4 L Albumin 2.9 L Urine Color Urine Appearance Urine pH Ur Specific [place] Urine Protein Urine Glucose (UA) Urine Ketones Urine Blood Urine Nitrite Ur Leukocyte Esterase Urine RBC Urine WBC Ur Squamous Epith Cells Ur Transition Epith Cell Ur Renal Epithelial Cell Urine Bacteria Hyaline Casts Granular Casts Influenza Type A (PCR) Influenza Type B (PCR) RSV RNA Qual (PCR) SARS-CoV-2 RNA (RT-PCR) 02/26/24 02/26/24 02/27/24 16:18 17:39 07:41 MCV MCH MCHC RDW Plt Count MPV Immature Gran % (Auto) Neut % (Auto) Lymph % (Auto) [place] % (Auto) Eos % (Auto) Baso % (Auto) Lymph # (Auto) [place] # (Auto) Eos # (Auto) Baso # (Auto) Abs Immat Gran (auto) Absolute Neuts (auto) Absolute Nucleated RBC Nucleated RBC % (auto) Anion Gap Estim Creat Clear Calc Estimated GFR POC Glucose 354 H* 36 L* Random Glucose Estimat Average Glucose Hemoglobin A1c % Calcium Total Bilirubin Direct Bilirubin AST ALT Alkaline Phosphatase Total Creatine Kinase Total Protein Albumin Urine Color Yellow Urine Appearance Cloudy Urine pH 5.5 Ur Specific [place] 1.015 Urine Protein 30 (1+) H Urine Glucose (UA) 500 H Urine Ketones Negative Urine Blood Large (3+) H Urine Nitrite Negative Ur Leukocyte Esterase Moderate (2+) H Urine RBC 11-20 H Urine WBC >50 H Ur Squamous Epith Cells 6-10 Ur Transition Epith Cell Present Ur Renal Epithelial Cell Present Urine Bacteria None Seen Hyaline Casts 11-20 Granular Casts Present Influenza Type A (PCR) NEGATIVE Influenza Type B (PCR) NEGATIVE RSV RNA Qual (PCR) NEGATIVE SARS-CoV-2 RNA (RT-PCR) POSITIVE A 02/27/24 02/27/24 02/27/24 08:01 08:15 11:02 MCV 88.2 MCH 29.8 MCHC 33.8 RDW 14.1 Plt Count 280 MPV 9.9 Immature Gran % (Auto) Neut % (Auto) Lymph % (Auto) [place] % (Auto) Eos % (Auto) Baso % (Auto) Lymph # (Auto) [place] # (Auto) Eos # (Auto) Baso # (Auto) Abs Immat Gran (auto) Absolute Neuts (auto) Absolute Nucleated RBC 0.000 Nucleated RBC % (auto) 0.0 Anion Gap 15 Estim Creat Clear Calc 17.4 Estimated GFR 25 POC Glucose 93 117 H Random Glucose 73 Estimat Average Glucose 131 Hemoglobin A1c % 6.2 H Calcium 8.1 L Total Bilirubin 0.4 Direct Bilirubin 0.2 AST 217 H ALT 179 H Alkaline Phosphatase 94 Total Creatine Kinase 3198 H Total Protein 5.0 L Albumin 2.8 L Urine Color Urine Appearance Urine pH Ur Specific [place] Urine Protein Urine Glucose (UA) Urine Ketones Urine Blood Urine Nitrite Ur Leukocyte Esterase Urine RBC Urine WBC Ur Squamous Epith Cells Ur Transition Epith Cell Ur Renal Epithelial Cell Urine Bacteria Hyaline Casts Granular Casts Influenza Type A (PCR) Influenza Type B (PCR) RSV RNA Qual (PCR) SARS-CoV-2 RNA (RT-PCR) Microbiology Microbiology Results: Microbiology 02/26/24 17:25 Urine Culture - Preliminary Urine clean catch - Clean Catch Midstream Culture too young to evaluate. Assessment and Plan (1) ANGELA (acute kidney injury): Status: Acute (2) Hypoglycemia: Status: Acute (3) COVID: Status: Acute Plan Pt is a 78-year-old female with a PMH significant for?HTN, CAD/HLD, COPD, insulin-dependent type 2 diabetes, peripheral neuropathy, CKD 3, migraines, and GERD who presents to the ED with weakness, confusion, and lethargy. Pt will be admitted to the hospital for treatment and further evaluation generalized weakness, confusion, hypoglycemia, and ANGELA in the setting of COVID infection. ANGELA on CKD3 SCr 1.29 in October 2023 per [facility] records SCr trending down from 2.75 to 1.97 Hold hydrochlorothiazide, valsartan follow BMP T2DM with Hypoglycemia hypoglycemia on arrival and again this am - improved with po intake hba1c 6.2 baseline meds Jardiance, ozempic, Lantus 62U on hold - will likely need dose adjustment on discharge Diabetic diet follow POCs closely Acute COVID infection no hypoxia Treat symptomatically Airborne and contact precautions Mild rhabdomyolysis cpk trending up to 3198, repeat in am continue IVF hypokalemia will replace and follow BMP generalized weakness Likely multifactorial: in the setting of COVID and hypoglycemia PT eval pending Question of left renal mass US not able to further characterize should be further characterized on abdominal MRI Abnormal UA Likely contaminated Will empirically treat with ceftriaxone, started 02/26/2024 No sepsis: Leukocytosis secondary to viral COVID infection Follow urine cultures Elevated LFTs No abdominal pain Possibly due to underlying viral infection vs hepatic steatosis, but also concern for CBD dilation on CT scan - will obtain Abdominal MRI for further evaluation Trend LFTs Hold statin Chronic pancreatitis on imaging no abdominal pain, no previous diagnosis Recommendation is for outpatient MRI w/contrast of pancreas incidental findings pulmonary nodules - outpatient follow up CAD/HLD Continue Plavix hold statin due to elevated LFTs HTN Continue atenolol Hold hydrochlorothiazide and valsartan due to ANGELA COPD Not in acute exacerbation Continue home inhalers Peripheral neuropathy hold gabapentin for ANGELA, continue ropinirole Full Code DVT Prophylaxis: Heparin Patient requires ongoing inpatient stay for treatment of?hypoglycemia, ANGELA, weakness, and confusion in the setting of acute COVID infection. Patient will require administration of IV fluids, close monitoring of labs Quality Stroke Does the patient have a stroke diagnosis?: No VTE Prior VTE?: No VTE Risk Level:: Medical - moderate - high VTE Device Contraindication: Treatment Not Indicated VTE Drug Contraindication: N/A - Med Ordered
[2024-02-27 11:22] VITALS: BP 114/64; PULSE 86; RESP 20; TEMP 37.1; O2SAT 96
[2024-02-27] MEDS: Potassium Chloride Packet 20 MEQ PACKET 40 MEQ PO (13:49)
[2024-02-27 16:00] VITALS: BP 109/55; PULSE 90; RESP 18; TEMP 36.7; O2SAT 97
[2024-02-27 16:11] LABS: Glucose, Whole Blood 117 mg/dL (60-115)
[2024-02-27] MEDS: gadobutroL 7.5 ML VIAL IVPUSH (18:34)
[2024-02-27] MEDS: cefTRIAXone sodium 1 GM VIAL IVPUSH (18:40)
[2024-02-27 20:00] VITALS: BP 131/67; PULSE 72; RESP 18; TEMP 36.2; O2SAT 96
[2024-02-27 20:46] LABS: Glucose, Whole Blood 115 mg/dL (60-115)
[2024-02-27 22:02] LABS: Alanine Aminotransferase 201 U/L (0-31); Albumin Level 2.6 g/dL (3.5-5.0); Alkaline Phosphatase 86 U/L (39-117); Anion Gap 12 (12-20); Aspartate Amino Transferase 268 U/L (5-31); Bilirubin Total 0.4 mg/dL (0.0-1.0); Blood Urea Nitrogen 21 mg/dL (9-16); Calcium 7.9 mg/dL (8.4-10.2); Carbon Dioxide 21 mmol/L (22-29); Chloride 106 mmol/L (96-108); Creatinine Clr Calc Pharmacy 16.7; Estimated Glomerular Filt Rate 23; Glucose Random 86 mg/dL (60-115); Magnesium 1.4 mg/dL (1.6-2.6); Potassium 3.2 mmol/L (3.3-5.1); Sodium 136 mmol/L (135-145); Total Protein 4.7 g/dL (6.5-8.0)
[2024-02-27] MEDS: Montelukast Sodium 10 MG TABLET PO (22:26)
[2024-02-27] MEDS: Zolpidem Tartrate 5 MG TABLET PO (22:27)
[2024-02-27] MEDS: Magnesium Sulfate/H2O 2 GM/50 ML PIGGYBACK IV (22:30)
[2024-02-27] MEDS: rOPINIRole HCL 2 MG TABLET PO (23:24)
[2024-02-28] VITALS: BP 126/67; PULSE 83; RESP 17; TEMP 37; O2SAT 95
[2024-02-28] MEDS: 0.9 % Sodium Chloride Flush 3 ML SYRINGE IVFLUSH ×2 (02:51→08:07)
[2024-02-28 04:00] VITALS: BP 107/58; PULSE 84; RESP 18; TEMP 36.6; O2SAT 94
[2024-02-28] MEDS: Omeprazole 40 MG CAPSULE.DR PO (05:50)
[2024-02-28 07:29] LABS: Alanine Aminotransferase 213 U/L (0-31); Albumin Level 2.6 g/dL (3.5-5.0); Alkaline Phosphatase 92 U/L (39-117); Anion Gap 11 (12-20); Aspartate Amino Transferase 259 U/L (5-31); Bilirubin Direct 0.3 mg/dL (0.0-0.5); Bilirubin Total 0.5 mg/dL (0.0-1.0); Blood Urea Nitrogen 21 mg/dL (9-16); Calcium 7.8 mg/dL (8.4-10.2); Carbon Dioxide 23 mmol/L (22-29); Chloride 105 mmol/L (96-108); Creatinine Clr Calc Pharmacy 19.4; Estimated Glomerular Filt Rate 28; Glucose Random 76 mg/dL (60-115); Sodium 136 mmol/L (135-145); Total Protein 4.7 g/dL (6.5-8.0)
[2024-02-28 07:30] LABS: Glucose, Whole Blood 69 mg/dL (60-115)
[2024-02-28 07:40] VITALS: BP 109/58; PULSE 86; RESP 18; TEMP 37.2; O2SAT 96
[2024-02-28 07:59] LABS: Potassium 2.9 mmol/L (3.3-5.1)
[2024-02-28] MEDS: Potassium Chloride ER 20 MEQ TAB.ER.PRT PO ×3 (08:06→08:35)
[2024-02-28] MEDS: Meclizine HCl 25 MG TABLET PO ×2 (08:07→14:21)
[2024-02-28] MEDS: atenoloL 50 MG TABLET PO (08:07)
[2024-02-28] MEDS: Clopidogrel Bisulfate 75 MG TABLET PO (08:07)
[2024-02-28 08:10] LABS: Magnesium 1.7 mg/dL (1.6-2.6)
[2024-02-28] MEDS: Potassium Chloride ER 20 MEQ TAB.ER.PRT 40 MEQ PO (08:36)
[2024-02-28 11:18] VITALS: BP 126/68; PULSE 75; RESP 18; TEMP 37.1; O2SAT 96
[2024-02-28 11:35] LABS: Glucose, Whole Blood 173 mg/dL (60-115)
[2024-02-28] MEDS: Heparin Sodium,Porcine 5,000 UNIT/ML VIAL 5000 UNIT SUBCUT (11:35)
[2024-02-28] MEDS: Insulin Lispro 100 UNIT/ML 3 ML VIAL SUBCUT (11:36)
[2024-02-28 13:25] LABS: Potassium 3.8 mmol/L (3.3-5.1)
--- NOTE | 2024-02-28 14:52 | P.DS_ITS ---
DS: Providers Provider Date of Service: 02/28/24 Date of admission: 02/26/24 21:06 Date of discharge: 02/28/24 Primary care physician: Jose Diaz MD Consults: 02/26/24 22:04 Consult to Nephrology Routine Consulting Provider: [facility] Reason for consultation: ANGELA on CKD, abdnormal UA Attending physician on discharge: Randy [facility] Discharging clinician: Christine Kang DS: Diagnosis Discharge Diagnosis (1) ANGELA (acute kidney injury): Status: Acute (2) Hypoglycemia: Status: Resolved (3) COVID: Status: Acute DS: Summary Hospital Course Hospital Course: From H&P on the day of admission Pt is a 78-year-old female with a PMH significant for?HTN, CAD/HLD, insulin-dependent type 2 diabetes, peripheral neuropathy, CKD 3, migraines, and GERD who presents to the ED with weakness, confusion, and lethargy. Pt does not remember any events this morning until EMS administered 10g dextrose p.o. reports he went to check on the pt since she was sleeping late and found her to be lethargic, weak, and confused. Was unable to get out of bed. He was able to bring her to the top of the stairs but had to call EMS to help bring her down the stairs. Pt currently reports feeling fine overall, though has has occasionally productive cough and felt weak x4 days. Denies SOB or CHIANG. Notes attended a wake for her sister two days prior to symptom onset. 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 Perez of [facility] [place] but has not yet started taking it. States has been eating and drinking normally. No changes to bowel or bladder habits. Denies dysuria or polyuria. No nausea, vomiting, diarrhea. Last bowel movement earlier this evening, reports usually having 1-2 bowel movements daily. Denies abdominal pain. In the ED pt's vitals were stable and largely WNL. Labs were significant for leukocytosis of 16.7, BUN 32 , creatinine 2.75 (elevated from 1.08 on 07/08/2019), initial POC 44, AST 156, ALT 152, and testing positive for COVID. UA positive for protein, glucose, blood, leukocyte esterase, 11-20 RBCs, greater than 50 WBCs, 6-10 epithelial cells, and negative for nitrites and bacteria. CT?of abdomen and pelvis with multiple findings: Showed mild diffuse prominence of small and large bowels with moderate colonic stool burden and small bowel fecalization, suggesting ileus versus constipation; chronic pancreatitis with severe atrophy and beaded dilated duct; nonspecific dilatation of the CBD; intermediate density of 1cm in upper pole of the left kidney, cyst vs neoplasm; and intrarenal abdominal aorta 2.8cm. Pt was treated with dextrose 25 g IV, IVF, and ceftriaxone. Pt will be admitted to the hospital for treatment and further evaluation generalized weakness, confusion, hypoglycemia, and ANGELA in the setting of COVID infection. Patient noted to have multiple electrolyte abnormalities. Hypokalemia improved with replacement. Mild rhabdomyolysis with CPK peaking at 3198, trending down with IV fluid. ANGELA superimposed on CKD 3. Baseline creatinine around 1.3 according to records from [facility]. Initially on admission creatinine was 2.75. Her hydrochlorothiazide and losartan were placed on hold, she received gentle fluid rehydration and her creatinine improved to 1.77. She was noted to have bout of hypoglycemia on admission and the following morning with a blood sugars low as 36. HbA1c was checked and was 6.2. Her blood sugars remained under 150 with no diabetic medication. We will discontinue Lantus and Ozempic, continue Jardiance. Although her Lantus is stated to be 62 units she states that she only takes a maximum of 30 units and she decides based on her evening blood sugar what does to give her self based on trial and error over time. She feels confident in her blood sugar monitoring and mangement. Recommend to check blood sugar before meals and at bedtime. For COVID-19, patient has mild cough but no shortness of breath, no hypoxia and did not require any supplemental oxygen. Liver function testing also noted to be elevated in a nonobstructive pattern. Possibly elevated due to combination of mild rhabdomyolysis and acute viral infection. Statin will be placed on hold, recommend outpatient follow-up for close monitoring of liver function testing. Multiple incidental findings noted on CT scan of the abdomen including possible renal mass, CBD dilation and chronic pancreatitis. For this reason an MRI of the abdomen was obtained and confirmed probable chronic pancreatitis, no CBD dilation, benign cyst of the kidney which does not need further follow-up. She was also noted to have pulmonary nodules which we will need to be followed as outpatient. For hypertension she was continued on baseline atenolol but hydrochlorothiazide and valsartan were discontinued due to ANGELA. Blood pressure has remained normal, would recommend outpatient follow-up with PCP for close blood pressure monitoring. Urinalysis with possibility of UTI and she started on empiric ceftriaxone however her urine culture returned negative and antibiotics were discontinued. For generalized weakness this was likely multifactorial to above ANGELA, acute COVID infection and electrolyte abnormalities, planned for physical therapy evaluation however patient declined further stay in the hospital to await physical therapy on Thursday morning. Discussed setting up home physical therapy however she declined and prefers to continue outpatient PT if able. She was hesitant but did agree for VNA services upon discharge. Time Attestation Discharge Coordination Time (in mins): 40 Quality: Safe Use of Opioids Does Pt have an Active Cancer Diagnosis on the Problem List?: No Quality: Stroke Does the patient have a stroke diagnosis?: No Physical Exam Vital Signs: Vital Signs: Last Vital Signs Temp 98.7 F 02/28/24 11:18 Pulse 75 02/28/24 11:18 Resp 18 02/28/24 11:18 BP 126/68 02/28/24 11:18 Pulse Ox 96 02/28/24 11:18 O2 Del Method Room Air 02/28/24 11:18 O2 Flow Rate 2 02/27/24 20:00 BMI result Body Mass Index 20.6 Const: General: cooperative, comfortable, no acute distress, alert and awake Orientation/consciousness: patient oriented x3 Resp: Effort & Inspection: normal respiratory effort, able to speak in complete sentences, no respiratory distress and no use of accessory muscles Auscultation: clear to auscultation bilaterally Cardio: Rate: regular rate GI: Inspection: No distended Palpation (GI): Soft to palpation and nontender Neuro: General: patient oriented x3, moves all extremities and CN's II-XI intact bilaterally Extrem: General: Yes no pedal edema DS: Data Data Completed and Pending Labs on day of discharge: Laboratory Results - last 24 hr 02/27/24 02/27/24 02/27/24 16:01 20:40 21:12 Sodium 136 Potassium 3.2 L Chloride 106 Carbon Dioxide 21 L Anion Gap 12 BUN 21 H Creatinine 2.06 H Estim Creat Clear Calc 16.7 Estimated GFR 23 POC Glucose 117 H 115 Random Glucose 86 Calcium 7.9 L Magnesium 1.4 L* Total Bilirubin 0.4 Direct Bilirubin AST 268 H ALT 201 H Alkaline Phosphatase 86 Total Creatine Kinase Total Protein 4.7 L Albumin 2.6 L Carcinoembryonic Ag 02/28/24 02/28/24 02/28/24 06:27 07:24 11:21 Sodium 136 Potassium 2.9 L* Chloride 105 Carbon Dioxide 23 Anion Gap 11 L BUN 21 H Creatinine 1.77 H Estim Creat Clear Calc 19.4 Estimated GFR 28 POC Glucose 69 173 H Random Glucose 76 Calcium 7.8 L Magnesium 1.7 Total Bilirubin 0.5 Direct Bilirubin 0.3 AST 259 H ALT 213 H Alkaline Phosphatase 92 Total Creatine Kinase 2788 H Total Protein 4.7 L Albumin 2.6 L Carcinoembryonic Ag 6.90 02/28/24 12:54 Sodium Potassium 3.8 D Chloride Carbon Dioxide Anion Gap BUN Creatinine Estim Creat Clear Calc Estimated GFR POC Glucose Random Glucose Calcium Magnesium Total Bilirubin Direct Bilirubin AST ALT Alkaline Phosphatase Total Creatine Kinase Total Protein Albumin Carcinoembryonic Ag Discharge Plan Discharge Anticipated Discharge Date/Time: 02/28/24 15:01 Patient Disposition: Home Health Service Discharge Diagnosis: Hypoglycemia Hypokalemia Transaminitis ANGELA Acute COVID-19 infection without hypoxia Referrals: [facility] [Outside] - 1 Week Jose Diaz MD [Primary Care Provider] - 1 Week Discharge Medications: New gabapentin 100 mg capsule 200 mg PO BID 30 Days Qty: 120 0RF Continued sumatriptan succinate 100 mg tablet 100 mg PO NEEDED clopidogrel 75 mg tablet 75 mg PO DAILY omeprazole 40 mg capsule,delayed release(DR/EC) 40 mg PO BID@0630,1630 cefaclor 250 mg capsule 250 mg PO DAILY meclizine 25 mg tablet 25 mg PO QID ropinirole 2 mg tablet 2 mg PO BEDTIME@2029 montelukast 10 mg tablet 10 mg PO BEDTIME zolpidem 5 mg tablet 5 mg PO BEDTIME PRN (Reason: insomnia) atenolol 50 mg tablet 50 mg PO DAILY potassium chloride 20 mEq tablet extended release 20 meq PO DAILY Jardiance 10 mg tablet 10 mg PO DAILY albuterol sulfate 90 mcg/actuation Hfa Aerosol Inhaler 2 puff INHALATION Q4H PRN (Reason: Shortness Of Breath Or Wheezing) Held hydrochlorothiazide 25 mg tablet 25 mg PO DAILY Hold Instructions: hold until follow up with PCP rosuvastatin 40 mg tablet 40 mg PO DAILY Hold Instructions: hold until LFTs improve, discuss with PCP trospium 20 mg tablet 20 mg PO BID Hold Instructions: hold until repeat BMP to ensure kidney function returns to baseline insulin glargine [Basaglar KwikPen U-100 Insulin] 100 unit/mL (3 mL) insulin pen 62 unit subcut DAILY Hold Instructions: blood sugar has remained normal during hospital stay without lantus. monitor blood sugar closely. valsartan 160 mg tablet 160 mg PO DAILY Hold Instructions: hold until kidney function returns to normal. repeat BMP. discuss with PCP Discontinued gabapentin 400 mg capsule 400 mg PO BID@2029,2229 Ozempic 1 mg/dose (4 mg/3 mL) pen injector 1 mg subcut FR Discharge Orders: Discharge Order (Routine); Ordered 02/28/24 Ordered By: Christine Kang Activity on Discharge: As tolerated Stand Alone Forms: Patient Portal Discharge page Print Language: British Other Ambulatory Orders: Basic Metabolic Panel (Routine) Timeframe: 1 Week Facility: [facility] - Location: Laboratory Ordered By: Christine Kang Liver Panel (Routine) Timeframe: 1 Week Facility: [facility] - Location: Laboratory Ordered By: Christine Kang Care Plan Goals: see below Health Concerns: Acute COVID-19 infection without hypoxia Transaminitis Type 2 diabetes with hypoglycemia ANGELA on CKD 3 Hypokalemia Mild rhabdomyolysis Chronic pancreatitis on imaging Benign renal cyst Lung nodules Plan of Treatment: hold HCTZ and losartan until repeat lab work completed and kidney function returns to baseline. discuss with PCP stop ozempic and lantus. follow blood sugars before meals and at bedtime, keep track of blood sugar. If blood sugars consistently above 200 call PCP hold statin due to elevated LFTs until repeat labs/discuss with PCP Dose of gabapentin should be decreased based on current kidney function Recommend repeat labs in the next 1 week to follow kidney function and liver function tests Due to abnormal pancreas findings recommend outpatient follow-up with your guitar maker hand for further workup follow CDC guidelines for covid 19 Call pcp or return to ED with new or worsening symptoms VNA services will be set up upon discharge, home PT declined Assessment: see discharge summary Discharge Date/Time: 02/28/24 16:51
--- NOTE | 2024-02-28 15:15 | MHC.CM.PN ---
Pt is medically cleared for discharge home with new [facility]NA services, pts family will transport her home.
--- NOTE | 2024-02-28 15:25 | W.MHC.F2F ---
Service Date Service Date: 02/28/24 Encounter Date of encounter: 02/28/24 Reasons for Services Signs and symptoms assessed: long-term for medication reconciliation, multiple medication changes. blood sugar monitoring, blood pressure monitoring Reason for long-term: monitoring of unstable blood sugar and medication management MD Overseeing Care: Jose Diaz Homebound: Leaving the home is medically contraindicated at this time without the asist of a device and/or another person due th the listed conditions above and below. Reason homebound: weakness related to hospital stay Certification: Based on the above findings, I certify that this patient is confined to the home and needs intermittent long-term care, physical therapy and/or speech therapy, or continues to need occupational therapy. The patient is under my care, and I have initiated the establishment of the plan of care. The patient will be followed by a physician who will periodically review the plan of care. Time Spent With Patient Time: Total time managing care of this patient today ____ minutes.
[2024-02-29 11:08] LABS: Carbohydrate Antigen 19-9 22 U/mL (<34)
== END 2024-02-28 16:51 | disposition home or self-care (01) | DRG 637 ==
LOC: HO.ED 19:19 → HO.EDOVER 21:20 → HO.IMC 02-27 01:34
PROVIDERS: Internal Medicine; Physician Assistant Medical; Admitting Provider Student in an Organized Health Care Education/Training Program; Emergency Provider Student in an Organized Health Care Education/Training Program; PCP Internal Medicine; Visit Provider Physician Assistant Medical
DX: E11.649 Type 2 diabetes mellitus with hypoglycemia without coma (principal); U07.1 COVID-19; M62.82 Rhabdomyolysis; I12.9 Hypertensive chronic kidney disease with stage 1 through stage 4 chronic kidney disease, or unspecified chronic kidney disease; N17.9 Acute kidney failure, unspecified; I25.10 Atherosclerotic heart disease of native coronary artery without angina pectoris; E87.6 Hypokalemia; N18.30 Chronic kidney disease, stage 3 unspecified; E11.22 Type 2 diabetes mellitus with diabetic chronic kidney disease; E11.42 Type 2 diabetes mellitus with diabetic polyneuropathy; Z79.4 Long term (current) use of insulin; Z79.02 Long term (current) use of antithrombotics/antiplatelets; Z79.899 Other long term (current) drug therapy
CPT/HCPCS: 0241U; 36415; 74176; 74183; 76775; 80048; 80053; 80076; 81001; 82378; 82550; 82947; 83036; 83735; 84132; 85025; 85027; 86301; 87086; 93005; 99285; A9585; J0696; J1644; J3475; J7120

== ENCOUNTER → 2024-02-26 14:10 | Outpatient (BNV) | payer MEDICARE, MEDICAID, SELFPAY | PROVIDERS: Admitting Provider Student in an Organized Health Care Education/Training Program; Emergency Provider Student in an Organized Health Care Education/Training Program; PCP Internal Medicine; Visit Provider Internal Medicine Cardiovascular Disease | DX: R53.1 Weakness (principal); R94.31 Abnormal electrocardiogram [ECG] [EKG] | CPT/HCPCS: 93010 ==

== ENCOUNTER → 2024-02-26 21:06 | Outpatient (BNV) | payer MEDICARE, MEDICAID, SELFPAY | PROVIDERS: Admitting Provider Student in an Organized Health Care Education/Training Program; Emergency Provider Student in an Organized Health Care Education/Training Program; PCP Internal Medicine; Visit Provider Student in an Organized Health Care Education/Training Program | DX: N17.9 Acute kidney failure, unspecified (principal); E11.65 Type 2 diabetes mellitus with hyperglycemia; U07.1 COVID-19 | CPT/HCPCS: 99223; 99232 ==

== ENCOUNTER 2024-09-07 16:16 | Outpatient (REF) | payer MEDICARE, MEDICAID, SELFPAY ==
--- NOTE | ~2024-09-07 | US_ITS ---
CLINICAL HISTORY: bilat. leg edema Venous duplex ultrasound bilateral lower extremity Comparison: None Findings: The visualized deep veins are fully compressible with normal Doppler color flow and spectral tracings. 4.6 x 1.7 x 2.3 cm cyst within the right popliteal fossa. 4.2 x 1.2 x 1.6 cm cyst within the left popliteal fossa. There are lymph nodes within the bilateral groins. These have normal morphology and fatty van and are compatible with benign lymph nodes. There is edema of the soft tissues. IMPRESSION: 1. No deep venous thrombosis of the bilateral lower extremities. 2. 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 This document has been electronically signed by: Lashon Nova MD on 09/07/2024 17:21:29
--- OUTSIDE RECORDS SUMMARY | 2024-09-07 16:19 | XMS_ITS | Clinical Summary ---
Author Organization LL [address] [place] [address] Address [address] [place] [address] Phone Care Team Providers Care Communications Writer Name Role Phone Unavailable Primary Care Provider Unavailabl e Social History Tobacco Use Types Packs/Day Years Used Date Smoking Tobacco: Never Assessed Comments Unknown Sex and Gender Information Value Date Recorded Sex Assigned at Not on file Legal Sex Female 1:14 PM EST Gender Identity Not on file Sexual Orientation Not on file Plan of Treatment Health Maintenance Due Date Last Done Comments DTaP,Tdap,and Td Vaccines (1 - Tdap) 12/19/1966 Pneumococcal Vaccine: 50+ Ye ars (1 of 1 - PCV) 12/19/1997 Zoster Vaccines (1 of 2) 12/19/1997 RSV Immunization Adult Patie nts (1 - 1-dose 75+ series) 12/19/2022 COVID-19 Vaccine ( - 2023-2 5 season) 2023 Depression Screening 04/29/2024 Falls Risk Assessment 04/29/2024 Hepatitis C Screening 04/29/2024 Medicare Annual Wellness Visit 04/29/2024 Osteoporosis Screening (Bone Density Screening) 04/29/2024 Social Influencers of Health Screening 04/29/2024 Influenza Vaccine (Season Ended) 2024 HIB Vaccines Aged Out No longer eligi ble based on patient's age to complete this topic HPV Vaccines Aged Out No longer eligi ble based on patient's age to complete this topic Hepatitis A Vaccines Aged Out No long er eligible based on patient's age to complete this topic Hepatitis B Vaccines Aged Out No long er eligible based on patient's age to complete this topic IPV Vaccines Aged Out No longer eligi ble based on patient's age to complete this topic MMR Vaccines Aged Out No longer eligi ble based on patient's age to complete this topic Meningococcal ACWY Vaccine Aged Out N o longer eligible based on patient's age to complete this topic Meningococcal B Vaccine Aged Out No l onger eligible based on patient's age to complete this topic RSV Immunization Patients Un mabel 20 months Aged Out No longer eligible b ased on patient's age to complete this topic Varicella Vaccines Aged Out No longer eligible based on patient's age to complete this topic Insurance MEDICARE MEDICAID - [place]
== END 2024-09-07 16:17 | disposition home or self-care (01) ==
LOC: HO.US 16:16
PROVIDERS: PCP Internal Medicine; Visit Provider Internal Medicine
DX: R60.0 Localized edema (principal)
CPT/HCPCS: 93970

== ENCOUNTER → 2024-09-07 16:35 | Outpatient (BNV) | payer MEDICARE, MEDICAID, SELFPAY | PROVIDERS: PCP Internal Medicine; Visit Provider Radiology Diagnostic Radiology | DX: R22.43 Localized swelling, mass and lump, lower limb, bilateral (principal); M71.21 Synovial cyst of popliteal space [Baker], right knee; M71.22 Synovial cyst of popliteal space [Baker], left knee | CPT/HCPCS: 93970 ==

== ENCOUNTER 2024-09-19 14:04 | Inpatient (IN) | payer MEDICARE, MEDICAID, SELFPAY ==
[2024-09-19] VITALS (16 sets, daily range): BP systolic 94–143; BP diastolic 41–79; PULSE 80–92; RESP 12–22; TEMP 36.8–37.9; O2SAT 93–100; BMI 20.2
--- NOTE | 2024-09-19 | ECG_ITS ---
Test Reason : HYPOTENSION Blood Pressure : */* mmHG Vent. Rate : 82 BPM Atrial Rate : * BPM P-R Int : * ms QRS Dur : 68 ms QT Int : 384 ms P-R-T Axes : * 63 50 degrees QTcB Int : 448 ms Poor data quality Possible Normal sinus rhythm with Premature atrial complexes Septal infarct , age undetermined Abnormal ECG When compared with ECG of 26-Feb-2024 14:10, Septal infarct is now Present Repeat EKG Referred By: Aparna Bass Electronically Signed By: MAKENZIE ELMORE MD
--- NOTE | ~2024-09-19 | CT_ITS ---
CLINICAL HISTORY: elevated lfts, diarrhea CT abdomen and pelvis without contrast Comparison: None Findings: There are several tiny nodules within the right lower lobe measuring up to 3 mm in size. There is severe pancreatic atrophy and numerous pancreatic calcifications compatible with chronic pancreatitis. There are multiple bilateral kidney cysts, evaluated in limited fashion. The liver is markedly hypodense. The spleen is normal in size. The adrenal glands are unremarkable. The gallbladder is not visualized. There is relative fluid distention of small bowel. No focal bowel inflammation or or dilatation. 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 Severe vascular calcifications. Limited evaluation of pelvic contents secondary to metallic artifact. Prior hysterectomy. Partial visualization of a normal appendix. No secondary findings to suggest appendicitis. Status post left hip replacement. No acute displaced fracture. IMPRESSION: 1. Severe fatty infiltration of the liver. 2. 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 3. Fluid distention of small bowel suggesting possible gastroenteritis. No focal inflammatory process or evidence of bowel obstruction. 4. There are changes of chronic pancreatitis. This document has been electronically signed by: Lashon Nova MD on 09/20/2024 18:48:04
--- NOTE | ~2024-09-19 | XR_ITS ---
CLINICAL HISTORY: Sepsis unclear cause 1 view chest x-ray Comparison: None Findings: The lungs are clear. Heart size is normal. No acute fracture. IMPRESSION: 1. No acute findings. This document has been electronically signed by: Lashon Nova MD on 09/19/2024 20:41:11
[2024-09-19 14:15] LABS: Glucose, Whole Blood 112 mg/dL (60-115)
--- NOTE | 2024-09-19 14:22 | PC.NURSE ---
Patient A&O x 3. Patient presents to ED after being found unresponsive by in bed. LKWT last night. Patient was noted to be incontinent of urine and stool, POC 32 EMS administered 250 ml D10 POC recheck 120. Patient hypertensive 143/63 but all other vitals stable. POC in ED 112. Patient denies pain,sob, lightheadedness,dizziness. Patient states I forgot to check my sugar before i went to bed but i didnt take insulin . Patient using bed jj at this time.Plan of care on going
--- NOTE | 2024-09-19 14:38 | MHC.EDTECH ---
Assisted pt with toileting placed pt on bed jj, helped clean pt and placed some barrier cream on buttocks.
[2024-09-19 14:39] LABS: Glucose, Whole Blood 128 mg/dL (60-115)
[2024-09-19 15:42] LABS: Glucose, Whole Blood 66 mg/dL (60-115)
[2024-09-19 15:49] LABS: MANUAL DIFF FLAG NO
[2024-09-19 15:54] LABS: Basophils Percent Auto 0.1 % (0-2); Hemoglobin 11.8 g/dl (12.0-16.0); Imm Gran Abs Auto 0.05 X10*3/uL (0.00-0.03); Imm Gran Pct Auto 0.3 % (0.0-0.4); Lymphocytes Absolute Auto 1.4 X10*3/uL (1.2-4.9); Lymphocytes Percent Auto 9.3 % (20-40); Mean Corpuscular HGB Conc 33.7 g/dl (31.0-35.0); Mean Corpuscular Hemoglobin 31.6 pg (27.0-33.0); Mean Corpuscular Volume 93.8 fL (80.0-98.0); Mean Platelet Volume 9.9 fL (9.4-12.3); Monocytes Absolute Auto 0.7 X10*3/uL (0.1-1.2); Monocytes Percent Auto 4.7 % (2-11); Neutrophils Absolute Auto 13.2 x10*3/uL (2.0-8.3); Neutrophils Percent Auto 85.6 % (45-73); Platelet Count 259 X10*3/uL (160-400); Red Blood Count 3.73 X10*6/uL (4.20-5.50); Red Cell Distribution Width 14.6 % (11.0-16.0); White Blood Count 15.4 X10*3/uL (4.8-10.8)
[2024-09-19 16:22] LABS: Alanine Aminotransferase 30 U/L (0-31); Alkaline Phosphatase 151 U/L (39-117); Anion Gap 12 (12-20); Aspartate Amino Transferase 57 U/L (5-31); Bilirubin Total 0.7 mg/dL (0.0-1.0); Blood Urea Nitrogen 10 mg/dL (9-16); Calcium 8.2 mg/dL (8.4-10.2); Carbon Dioxide 25 mmol/L (22-29); Chloride 101 mmol/L (96-108); Creatinine Clr Calc Pharmacy 35.4; Estimated Glomerular Filt Rate 56; Glucose Random 50 mg/dL (60-115); Magnesium 1.4 mg/dL (1.6-2.6); Potassium 3.3 mmol/L (3.3-5.1); Sodium 135 mmol/L (135-145); Total Protein 5.2 g/dL (6.5-8.0)
--- OUTSIDE RECORDS SUMMARY | 2024-09-19 16:42 | XMS_ITS | Clinical Summary ---
Author Organization LL [address] [place] [address] Address [address] [place] [address] Phone Care Team Providers Care Supervisor Hydrochloric Area Name Role Phone Unavailable Primary Care Provider [...]
[2024-09-19 16:44] LABS: Glucose, Whole Blood 74 mg/dL (60-115)
[2024-09-19] MEDS: Magnesium Sulfate/H2O 2 GM/50 ML PIGGYBACK IV (17:00)
[2024-09-19] MEDS: Dextrose 50 % 25 GM/50 ML SYRINGE IVPUSH (17:00)
--- NOTE | 2024-09-19 17:09 | PC.NURSE ---
POC recheck 66 patient given PB&J with some milk, POC rechecked 74. Provider notified dextrose 50% 25gm given will reassess POC. Mag currently infusing through 18G in RAC. VSS and up to date
--- NOTE | 2024-09-19 17:16 | PC.NURSE ---
POC recheck 246 no s/sx of hypo/hyperglycemia
[2024-09-19 17:19] LABS: Glucose, Whole Blood 246 mg/dL (60-115)
--- NOTE | 2024-09-19 17:29 | ED_ITS ---
HPI - General Adult General Chief complaint: Recheck/Abnormal Lab/Rx Stated complaint: HYPOGLYCEMIA Time Seen by Provider: 09/19/24 16:47 History of Present Illness ED Provider: Yann Barrera MD HPI narrative: 78-year-old female who provides minimal subjective HPI information. EMS said that her found her unresponsive glucose was low in the field, 32. Was given D10 and brought in. Patient herself denies infectious symptoms including no cough abdominal pain skin changes headache neck stiffness or urinary symptoms. Per nursing note awake on arrival glucose 112. Related Data Home Medications ?Medication ?Instructions ?Recorded ?Confirmed albuterol sulfate 90 mcg/actuation 2 puff inhalation Q4H PRN 02/26/24 09/19/24 aerosol inhaler Shortness Of Breath Or Wheezing clopidogrel 75 mg tablet 75 mg PO DAILY 02/26/24 09/19/24 meclizine 25 mg tablet 25 mg PO QID 02/26/24 09/19/24 montelukast 10 mg tablet 10 mg PO BEDTIME 02/26/24 09/19/24 omeprazole 40 mg capsule,delayed 40 mg PO BID@0630,1630 02/26/24 09/19/24 release potassium chloride 20 mEq 20 meq PO DAILY 02/26/24 09/19/24 tablet,extended release ropinirole 2 mg tablet 2 mg PO BEDTIME@2030 02/26/24 09/19/24 rosuvastatin 40 mg tablet 40 mg PO DAILY 02/26/24 09/19/24 sumatriptan succinate 100 mg tablet 100 mg PO DAILY MRX1 PRN migraine 02/26/24 09/19/24 trospium 20 mg tablet 20 mg PO BID 02/26/24 09/19/24 zolpidem 5 mg tablet 5 mg PO BEDTIME PRN insomnia 02/26/24 09/19/24 duloxetine 30 mg capsule,delayed 30 mg PO DAILY 09/19/24 09/19/24 release ergocalciferol (vitamin D2) 1,250 1,250 mcg PO MOWEFR 09/19/24 09/19/24 mcg (50,000 unit) capsule (Vitamin D2) gabapentin 400 mg capsule 400 mg PO TID 09/19/24 09/19/24 pregabalin 75 mg capsule 75 mg PO BID 09/19/24 09/19/24 vibegron 75 mg tablet (Gemtesa) 75 mg PO DAILY 09/19/24 09/19/24 Previous Rx's ?Medication ?Instructions ?Recorded insulin lispro 100 unit/mL See Protocol subcut QIDACHS #10 mL 09/21/24 subcutaneous solution (Admelog U-100 Insulin lispro) Allergies Allergy/AdvReac Type Severity Reaction Status Date / Time No Known Allergies Allergy Verified 09/19/24 14:18 [facility] Past Medical History Medical History Urinary incontinence Chronic calcific pancreatitis Hepatic steatosis Osteoarthritis Hyperlipidemia Chronic kidney disease (CKD) stage G3a/A1, moderately decreased glomerular filtration rate (GFR) between 45-59 mL/min/1.73 square meter and albuminuria creatinine ratio less than 30 mg/g Atherosclerosis of aorta Migraine GERD (gastroesophageal reflux disease) Peripheral neuropathy Insulin dependent type 2 diabetes mellitus CAD (coronary artery disease) HTN (hypertension) Surgical History H/O: hysterectomy History of cholecystectomy History of appendectomy History of arthroplasty of right shoulder Social History Social History Household Members: Significant Other Housing: House Do you presently have visiting nurse or other home services: Yes (meals on wheels) Patient Tobacco Use Status: Former Tobacco user Advance Directives Date on File: 02/29/24 service: No Physical Exam ED Vital Signs: Vital Signs - 24 hr 09/19/24 14:13 09/19/24 14:20 09/19/24 16:00 Temperature 98.3 F 98.3 F 98.3 F Pulse Rate 80 80 90 Respiratory Rate 14 14 22 H Blood Pressure 143/63 H 143/63 H 104/72 Pulse Oximetry 93 93 97 Oxygen Delivery Method Room Air Room Air Room Air 09/19/24 18:03 Temperature 100.2 F Pulse Rate 90 Respiratory Rate 18 Blood Pressure 122/69 Pulse Oximetry 99 Oxygen Delivery Method Room Air BMI result Body Mass Index 20.2 Const Other: EXAM: Gen: Alert, awake, well appearing, well hydrated. Head: Atraumatic Eyes: Anicteric, Normal conjunctiva. ENT: Moist mucosa, no pallor. ? Neck: Supple. Skin: ?No observable rash or bruising on exposed or examined skin Respiratory: Breathing comfortably, No distress.Clear to auscultation bilaterally, symmetric chest expansion, No wheeze, rales, ronchi. Cardiovascular: Regular rate and rhythm. No murmurs or rub. Well perfused periphery, warm extremities. No edema. ? Abdominal: No FOCAL TENDERNESS. Soft, no objective distension. No palpable masses or obvious organomegaly. ?No guarding, no rebound tenderness or other peritoneal findings. : No flank tenderness. Neuro: Alert. Gross movement of all extremities intact. ? Psych: Calm. Cooperative. MSK: No grossly visible deformity. Vital signs: See flowsheet Course Course Course Narrative: Recognition sepsis at 18:03 the time of the initial fever measurement 100.2., urinary frequency and heart rate 90 I will order blood cultures, lactic acid as there was not a suspicion initially of an infection she did not meet criteria. Yann Barrera MD Reevaluation(s) Reevaluation #1: [id number]: Focused sepsis exam. Patient well-perfused not tachycardic Medications Administered Discontinued Medications Generic Name Dose Route Start Last Admin Trade Name Freq PRN Reason Stop Dose Admin Acetaminophen 975 mg 09/19/24 18:22 09/19/24 18:28 Acetaminophen 325 Mg Tablet PO 09/19/24 18:23 975 mg ONCE ONE Administration Acetaminophen 650 mg 09/19/24 20:21 09/21/24 00:01 Acetaminophen 325 Mg Tablet PO 650 mg Q6H PRN Administration Pain, Mild 1-3,fever,headache Atorvastatin Calcium 80 mg 09/20/24 09:00 09/21/24 08:46 Atorvastatin Calcium 80 Mg Tablet PO 80 mg DAILY JENIFFER Administration Bacitracin 1 appl 09/20/24 09:00 09/21/24 08:45 Bacitracin Oint 14 Gm Tube TOPICAL Not Given BID [facility] Protocol Ceftriaxone Sodium 1 gm 09/19/24 18:11 09/19/24 18:28 Ceftriaxone Sodium 1 Gm Vial IVPUSH 09/19/24 18:12 1 gm ONCE ONE Administration Clopidogrel Bisulfate 75 mg 09/20/24 09:00 09/21/24 08:46 Clopidogrel Bisulfate 75 Mg Tablet PO 75 mg DAILY JENIFFER Administration Dextrose 25 gm 09/19/24 16:46 09/19/24 17:00 Dextrose 50 % 25 Gm/50 Ml Syringe IVPUSH 09/19/24 16:47 25 gm ONCE ONE Administration Dextrose 25 gm 09/19/24 20:24 09/20/24 06:09 Dextrose 50 % 25 Gm/50 Ml Syringe IVPUSH 25 gm Q15M PRN Administration per Hypoglycemia Standing Ord. Protocol Duloxetine HCl 30 mg 09/20/24 09:00 09/21/24 08:46 Duloxetine Hcl 30 Mg Capsule.Dr PO 30 mg DAILY JENIFFER Administration Enoxaparin Sodium 40 mg 09/19/24 20:30 09/20/24 20:23 Enoxaparin Sodium 40 Mg/0.4 Ml Syringe SUBCUT 40 mg Q24H JENIFFER Administration Gabapentin 400 mg 09/20/24 09:00 09/21/24 08:46 Gabapentin 400 Mg Capsule PO 400 mg TID JENIFFER Administration Magnesium Sulfate 2 gm in 50 mls @ 25 mls/hr 09/19/24 16:46 09/19/24 20:54 Magnesium Sulfate/H2o IV 09/19/24 18:45 Infused ONCE ONE Infusion Dextrose/Sodium Chloride 1,000 mls @ 125 mls/hr 09/19/24 17:45 09/19/24 18:25 D51/2ns IVCONT Infused .Q8H JENIFFER Infusion Dextrose/Sodium Chloride 1,000 mls @ 1,000 mls/hr 09/19/24 18:30 09/19/24 20:52 D51/2ns IVCONT Not Given .Q1H JENIFFER Sodium Chloride 500 mls @ 500 mls/hr 09/19/24 18:20 09/19/24 20:31 Ns IV 09/19/24 19:19 Infused .Q1H ONE Infusion Vancomycin HCl 1,250 mg/ 250 mls @ 166.667 mls/hr 09/19/24 18:30 09/19/24 21:35 Sodium Chloride IV 09/19/24 19:59 Infused ONCE ONE Infusion Potassium Chloride 10 meq in 100 mls @ 100 mls/hr 09/20/24 06:15 09/20/24 07:17 Potassium Chloride/H20 IV 09/20/24 10:14 Infused Q1H JENIFFER Infusion Insulin Human Lispro 0 unit 09/19/24 21:00 09/21/24 11:50 Insulin Lispro 100 Unit/Ml 3 Ml Vial SUBCUT Not Given QIDACHS [facility] Protocol Melatonin 6 mg 09/19/24 20:21 09/21/24 00:01 Melatonin 3 Mg Tablet PO 6 mg BEDTIME PRN Administration Insomnia Montelukast Sodium 10 mg 09/20/24 21:00 09/20/24 20:23 Montelukast Sodium 10 Mg Tablet PO 10 mg BEDTIME JENIFFER Administration Omeprazole 40 mg 09/20/24 16:30 09/21/24 05:49 Omeprazole 40 Mg Capsule.Dr PO 40 mg BID@0630,1630 JENIFFER Administration Potassium Chloride 40 meq 09/20/24 06:07 09/20/24 06:20 Potassium Chloride Packet 20 Meq Packet PO 09/20/24 06:08 40 meq ONCE ONE Administration Potassium Chloride 40 meq 09/20/24 06:32 09/20/24 06:39 Potassium Chloride Packet 20 Meq Packet PO 09/20/24 06:33 40 meq ONCE ONE Administration Potassium Chloride 20 meq 09/20/24 09:00 09/21/24 08:46 Potassium Chloride Er 20 Meq Tab.Er.Prt PO 20 meq DAILY JENIFFER Administration Pregabalin 75 mg 09/20/24 09:00 09/21/24 08:46 Pregabalin 75 Mg Capsule PO 75 mg BID JENIFFER Administration Ropinirole HCl 2 mg 09/20/24 20:30 09/20/24 20:23 Ropinirole Hcl 2 Mg Tablet PO 2 mg BEDTIME@2030 JENIFFER Administration Senna 17.2 mg 09/19/24 21:00 09/20/24 20:26 Sennosides 8.6 Mg Tablet PO Not Given BEDTIME JENIFFER Sodium Chloride 3 ml 09/20/24 00:00 09/21/24 08:45 0.9 % Sodium Chloride Flush 3 Ml Syringe IVFLUSH Not Given QSHIFT JENIFFER Tobramycin Sulfate 1 drop 09/19/24 21:30 09/21/24 12:45 Tobramycin Sulfate 0.3% Rina Op 5 Ml Btl EYE-BOTH 09/24/24 21:29 Not Given Q4H [facility] Medical Decision Making Medical Decision Making MDM Narrative: 78-year-old female with diabetes ?unresponsive by in bed ?no focal deficits she was incontinent of urine and stool point of care glucose at that time 32. She got D10, 250 mL by EMS with a recheck of 120 before arrival. She was awake alert oriented per triage nurse. Patient herself is a poor historian and demands to be discharged upon my initial evaluation. She tells me she did not eat anything at all today she does not give me a good reason for that. No abdominal pain headache fevers chills chest pain difficulty breathing or any other symptoms. Patient is quite well-appearing remained euglycemic. Incidentally spiked a fever in the ED although this is not 100.4 or above the remainder of my examination and lab and urine testing is suggestive of possible infectious source, heart rate 90. Given age and comorbidities low suspicion for initiating sepsis so we have done so. No lactate over 4 or hypotension. Covered broadly admit for hypoglycemia management and infection Lab Data 09/21/24 05:18 09/21/24 05:18 Labs: Lab Results 09/19/24 09/19/24 09/19/24 Range/Units 14:11 14:35 15:38 WBC (4.8-10.8) X10*3/uL RBC (4.20-5.50) X10*6/uL Hgb (12.0-16.0) g/dl Hct (37.0-47.0) % MCV (80.0-98.0) fL MCH (27.0-33.0) pg MCHC (31.0-35.0) g/dl RDW (11.0-16.0) % Plt Count (160-400) X10*3/uL MPV (9.4-12.3) fL Immature Gran % (Auto) (0.0-0.4) % Neut % (Auto) (45-73) % Lymph % (Auto) (20-40) % Shelby % (Auto) (2-11) % Eos % (Auto) (0-4) % Baso % (Auto) (0-2) % Lymph # (Auto) (1.2-4.9) X10*3/uL Shelby # (Auto) (0.1-1.2) X10*3/uL Eos # (Auto) (0.0-0.4) X10*3/uL Baso # (Auto) (0.0-0.2) X10*3/uL Abs Immat Gran (auto) (0.00-0.03) X10*3/uL Absolute Neuts (auto) (2.0-8.3) x10*3/uL Absolute Nucleated RBC (0.0-0.012) X10*3/uL Nucleated RBC % (auto) (0.0-0.2) /100WBC Sodium (135-145) mmol/L Potassium (3.3-5.1) mmol/L Chloride (96-108) mmol/L Carbon Dioxide (22-29) mmol/L Anion Gap (12-20) BUN (9-16) mg/dL Creatinine (0.5-1.4) mg/dL Estim Creat Clear Calc Estimated GFR POC Glucose 112 128 H 66 (60-115) mg/dL Random Glucose (60-115) mg/dL Estimat Average Glucose mg/dL Hemoglobin A1c % (<6.0) % Lactic Acid (0.5-2.0) mmol/L Calcium (8.4-10.2) mg/dL Magnesium (1.6-2.6) mg/dL Total Bilirubin (0.0-1.0) mg/dL AST (5-31) U/L ALT (0-31) U/L Alkaline Phosphatase (39-117) U/L Total Protein (6.5-8.0) g/dL Albumin (3.5-5.0) g/dL Lipase (8-78) U/L TSH (0.32-4.0) uIU/mL Free T4 (0.71-1.85) ng/dL Urine Color Urine Appearance Urine pH (5.0-9.0) Ur Specific [place] (1.005-1.025) Urine Protein (Neg-Trace) mg/dL Urine Glucose (UA) (Negative) mg/dL Urine Ketones (Negative) mg/dL Urine Blood (Negative) Urine Nitrite (Negative) Ur Leukocyte Esterase (Negative) Urine RBC (0-2) /HPF Urine WBC (0-5) /HPF Ur Squamous Epith Cells (0-2) /HPF Urine Bacteria (None Seen) Hyaline Casts (0-2) /LPF 09/19/24 09/19/24 09/19/24 Range/Units 15:44 15:46 16:41 WBC 15.4 H (4.8-10.8) X10*3/uL RBC 3.73 L (4.20-5.50) X10*6/uL Hgb 11.8 L (12.0-16.0) g/dl Hct 35.0 L (37.0-47.0) % MCV 93.8 (80.0-98.0) fL MCH 31.6 (27.0-33.0) pg MCHC 33.7 (31.0-35.0) g/dl RDW 14.6 (11.0-16.0) % Plt Count 259 (160-400) X10*3/uL MPV 9.9 (9.4-12.3) fL Immature Gran % (Auto) 0.3 (0.0-0.4) % Neut % (Auto) 85.6 H (45-73) % Lymph % (Auto) 9.3 L (20-40) % Shelby % (Auto) 4.7 (2-11) % Eos % (Auto) 0.0 (0-4) % Baso % (Auto) 0.1 (0-2) % Lymph # (Auto) 1.4 (1.2-4.9) X10*3/uL [place] # (Auto) 0.7 (0.1-1.2) X10*3/uL Eos # (Auto) 0.0 (0.0-0.4) X10*3/uL Baso # (Auto) 0.0 (0.0-0.2) X10*3/uL Abs Immat Gran (auto) 0.05 H (0.00-0.03) X10*3/uL Absolute Neuts (auto) 13.2 H (2.0-8.3) x10*3/uL Absolute Nucleated RBC 0.000 (0.0-0.012) X10*3/uL Nucleated RBC % (auto) 0.0 (0.0-0.2) /100WBC Sodium 135 (135-145) mmol/L Potassium 3.3 (3.3-5.1) mmol/L Chloride 101 (96-108) mmol/L Carbon Dioxide 25 (22-29) mmol/L Anion Gap 12 (12-20) BUN 10 (9-16) mg/dL Creatinine 0.97 (0.5-1.4) mg/dL Estim Creat Clear Calc 35.4 Estimated GFR 56 POC Glucose 74 (60-115) mg/dL Random Glucose 50 L* (60-115) mg/dL Estimat Average Glucose 148 mg/dL Hemoglobin A1c % 6.8 H (<6.0) % Lactic Acid (0.5-2.0) mmol/L Calcium 8.2 L (8.4-10.2) mg/dL Magnesium 1.4 L* (1.6-2.6) mg/dL Total Bilirubin 0.7 (0.0-1.0) mg/dL AST 57 H (5-31) U/L ALT 30 (0-31) U/L Alkaline Phosphatase 151 H (39-117) U/L Total Protein 5.2 L (6.5-8.0) g/dL Albumin 3.0 L (3.5-5.0) g/dL Lipase < 4 L (8-78) U/L TSH 3.53 (0.32-4.0) uIU/mL Free T4 0.87 (0.71-1.85) ng/dL Urine Color Urine Appearance Urine pH (5.0-9.0) Ur Specific [place] (1.005-1.025) Urine Protein (Neg-Trace) mg/dL Urine Glucose (UA) (Negative) mg/dL Urine Ketones (Negative) mg/dL Urine Blood (Negative) Urine Nitrite (Negative) Ur Leukocyte Esterase (Negative) Urine RBC (0-2) /HPF Urine WBC (0-5) /HPF Ur Squamous Epith Cells (0-2) /HPF Urine Bacteria (None Seen) Hyaline Casts (0-2) /LPF 09/19/24 09/19/24 09/19/24 Range/Units 17:15 18:11 18:26 WBC (4.8-10.8) X10*3/uL RBC (4.20-5.50) X10*6/uL Hgb (12.0-16.0) g/dl Hct (37.0-47.0) % MCV (80.0-98.0) fL MCH (27.0-33.0) pg MCHC (31.0-35.0) g/dl RDW (11.0-16.0) % Plt Count (160-400) X10*3/uL MPV (9.4-12.3) fL Immature Gran % (Auto) (0.0-0.4) % Neut % (Auto) (45-73) % Lymph % (Auto) (20-40) % Shelby % (Auto) (2-11) % Eos % (Auto) (0-4) % Baso % (Auto) (0-2) % Lymph # (Auto) (1.2-4.9) X10*3/uL [place] # (Auto) (0.1-1.2) X10*3/uL Eos # (Auto) (0.0-0.4) X10*3/uL Baso # (Auto) (0.0-0.2) X10*3/uL Abs Immat Gran (auto) (0.00-0.03) X10*3/uL Absolute Neuts (auto) (2.0-8.3) x10*3/uL Absolute Nucleated RBC (0.0-0.012) X10*3/uL Nucleated RBC % (auto) (0.0-0.2) /100WBC Sodium (135-145) mmol/L Potassium (3.3-5.1) mmol/L Chloride (96-108) mmol/L Carbon Dioxide (22-29) mmol/L Anion Gap (12-20) BUN (9-16) mg/dL Creatinine (0.5-1.4) mg/dL Estim Creat Clear Calc Estimated GFR POC Glucose 246 H (60-115) mg/dL Random Glucose (60-115) mg/dL Estimat Average Glucose mg/dL Hemoglobin A1c % (<6.0) % Lactic Acid 3.5 H* (0.5-2.0) mmol/L Calcium (8.4-10.2) mg/dL Magnesium (1.6-2.6) mg/dL Total Bilirubin (0.0-1.0) mg/dL AST (5-31) U/L ALT (0-31) U/L Alkaline Phosphatase (39-117) U/L Total Protein (6.5-8.0) g/dL Albumin (3.5-5.0) g/dL Lipase (8-78) U/L TSH (0.32-4.0) uIU/mL Free T4 (0.71-1.85) ng/dL Urine Color Yellow Urine Appearance Clear Urine pH 6.0 (5.0-9.0) Ur Specific [place] 1.010 (1.005-1.025) Urine Protein Negative (Neg-Trace) mg/dL Urine Glucose (UA) >=1000 H (Negative) mg/dL Urine Ketones Negative (Negative) mg/dL Urine Blood Negative (Negative) Urine Nitrite Negative (Negative) Ur Leukocyte Esterase Negative (Negative) Urine RBC 0-2 (0-2) /HPF Urine WBC 0-5 (0-5) /HPF Ur Squamous Epith Cells 0-2 (0-2) /HPF Urine Bacteria None Seen (None Seen) Hyaline Casts 0-2 (0-2) /LPF 09/19/24 Range/Units 19:30 WBC (4.8-10.8) X10*3/uL RBC (4.20-5.50) X10*6/uL Hgb (12.0-16.0) g/dl Hct (37.0-47.0) % MCV (80.0-98.0) fL MCH (27.0-33.0) pg MCHC (31.0-35.0) g/dl RDW (11.0-16.0) % Plt Count (160-400) X10*3/uL MPV (9.4-12.3) fL Immature Gran % (Auto) (0.0-0.4) % Neut % (Auto) (45-73) % Lymph % (Auto) (20-40) % [place] % (Auto) (2-11) % Eos % (Auto) (0-4) % Baso % (Auto) (0-2) % Lymph # (Auto) (1.2-4.9) X10*3/uL [place] # (Auto) (0.1-1.2) X10*3/uL Eos # (Auto) (0.0-0.4) X10*3/uL Baso # (Auto) (0.0-0.2) X10*3/uL Abs Immat Gran (auto) (0.00-0.03) X10*3/uL Absolute Neuts (auto) (2.0-8.3) x10*3/uL Absolute Nucleated RBC (0.0-0.012) X10*3/uL Nucleated RBC % (auto) (0.0-0.2) /100WBC Sodium (135-145) mmol/L Potassium (3.3-5.1) mmol/L Chloride (96-108) mmol/L Carbon Dioxide (22-29) mmol/L Anion Gap (12-20) BUN (9-16) mg/dL Creatinine (0.5-1.4) mg/dL Estim Creat Clear Calc Estimated GFR POC Glucose 274 H (60-115) mg/dL Random Glucose (60-115) mg/dL Estimat Average Glucose mg/dL Hemoglobin A1c % (<6.0) % Lactic Acid (0.5-2.0) mmol/L Calcium (8.4-10.2) mg/dL Magnesium (1.6-2.6) mg/dL Total Bilirubin (0.0-1.0) mg/dL AST (5-31) U/L ALT (0-31) U/L Alkaline Phosphatase (39-117) U/L Total Protein (6.5-8.0) g/dL Albumin (3.5-5.0) g/dL Lipase (8-78) U/L TSH (0.32-4.0) uIU/mL Free T4 (0.71-1.85) ng/dL Urine Color Urine Appearance Urine pH (5.0-9.0) Ur Specific [place] (1.005-1.025) Urine Protein (Neg-Trace) mg/dL Urine Glucose (UA) (Negative) mg/dL Urine Ketones (Negative) mg/dL Urine Blood (Negative) Urine Nitrite (Negative) Ur Leukocyte Esterase (Negative) Urine RBC (0-2) /HPF Urine WBC (0-5) /HPF Ur Squamous Epith Cells (0-2) /HPF Urine Bacteria (None Seen) Hyaline Casts (0-2) /LPF Discharge Plan Discharge Clinical Impression: Hypoglycemia, Hypomagnesemia Patient Disposition: Home, Self-Care Interventions: Admission Worksheet (ED) Last Done: 09/20/24 07:42 Discharge Date/Time: 09/20/24 08:31
--- NOTE | 2024-09-19 17:45 | PC.NURSE ---
patient incontinent of urine - pericare performed. bed change completed.
[2024-09-19] MEDS: Dextrose 5 % and 0.45 % NaCl 1,000 ML 125 ML IVCONT (17:56)
--- NOTE | 2024-09-19 17:58 | PC.NURSE ---
additional 18gIV placed in the left AC - D5 0.45 NS infusing @ 125mls/hr. magnesium continues to infuse into secondary IV access at this time. plan of care ongoing. call pérez placed within reach.
--- NOTE | 2024-09-19 18:10 | PC.NURSE ---
pt incontinent of urine again. provider notified of urinary frequency/urgency. straight catheterization performed. 220ml of clear, pale yellow, foul smelling urine noted immediately post output. specimen obtained/sent to lab. plan of care ongoing.
[2024-09-19 18:22] LABS: Appearance Urine Clear; Color Urine Yellow; Glucose Urine UA >=1000 mg/dL (Negative); Leukocyte Esterase Urine Negative (Negative); Nitrite Urine Negative (Negative); UMIC TRIGGER UACC YES; Urine Blood Negative (Negative); Urine Ketones Negative (Negative); Urine Protein Negative (Neg-Trace)
[2024-09-19] MEDS: Dextrose 5 % and 0.45 % NaCl 1,000 ML 1000 ML IVCONT (18:25)
[2024-09-19] MEDS: 0.9 % Sodium Chloride 500 ML IV (18:26)
[2024-09-19] MEDS: cefTRIAXone sodium 1 GM VIAL IVPUSH (18:28)
[2024-09-19] MEDS: Acetaminophen 325 MG TABLET 975 MG PO (18:28)
[2024-09-19 18:38] LABS: Bacteria Urine None Seen (None Seen); Hyaline Casts Urine 0-2 /LPF (0-2); RBC Urine 0-2 /HPF (0-2); Squamous Epithelial Cell Urine 0-2 /HPF (0-2); WBC Urine 0-5 /HPF (0-5)
[2024-09-19 18:51] LABS: Lactic Acid 3.5 mmol/L (0.5-2.0)
[2024-09-19] MEDS: vancomycin HCL 1,250 MG in 0.9 % Sodium Chloride 250 ML 166.67 MG IV (19:31)
[2024-09-19 19:34] LABS: Glucose, Whole Blood 274 mg/dL (60-115)
--- NOTE | 2024-09-19 20:26 | P.HPHOSP_ITS ---
History of Present Illness Date of Service: 09/19/24 Attending physician on admission: Kaylene Covington Chief Complaint: low blood sugar Pt is a 78 yo female with PMH insulin-dependent diabetes type 2 recently started back on Ozempic ThursdaySeptember 16, hypertension, GERD, HLD, CAD/ atherosclerosis of aorta, CKD stage 3, COVID, chronic calcific pancreatitis, hepatic steatosis, vertigo, neuropathy, insomnia, urinary incontinence, B knee OA with recent injections, R shoulder repair, L shoulder OA, severe degenerative disc disease L4/L5, hysterectomy, appendectomy, cholecystectomy was brought in by ambulance after being found by unresponsive. It was reported by EMS that pt was incontinent of urine and stool. Pt's own memory of events from this morning are as follows: pt's came into the bedroom in the AM. was going to [employer] and asked pt if she wanted to go. Pt declined and went back to sleep. returned and pt was awake and was feeling fine and decided to get some more sleep. When came in again, that is when pt was found unresponsive and spouse called EMS. BG 32, pt received D10 and POC then 120. Pt was alert and orientated on arrival to ED. patient refused to go to the ED from home and once in the ED initially did not want to stay. Patient is receptive to admission at this time. Pt states she has a CGM that is attached to a monitor and not her phone per her preference. Pt has a freestyle 1. Pt states the monitor does not alarm if her BG level gets too low. Pt also resumed Ozempic this past Thursday per her help desk team leader. Pt was on Ozempic until last February when this medicaiton was stopped due to problems with her liver. MRI ABdomen from Admission in 2023 noted chronic calcific pancreatitis which may be why Ozempic was stopped. Pt is on long acting insulin 20 units mid day. Pt was on 22 units prior to starting Ozempic. Patient does check her blood sugar prior to administering long-acting insulin. Patient also make sure that she takes snack before going to bed. Our choices for snacks include tricks candy bars and high sugar items. Pt does follow an help desk team leader, online publisher, opthalmologist. Pt denies any chronic issues with her vision. Pt is having some purulent drainage from both eyes and has an upcoming visit with nuclear weapons specialist some time this month. Pt did have a temp of 100.4 and elevated lactate 3.5 upon arrival to ED. Elevated LA likely secondary from insult suffered due to severe hypoglycemia. Pt did receive one dose of ceftrriaxone. UA is pending. CXR negative for acute findings. As above, pt has purulent drainage from both eyes but no obvious evidence of conjunctivitis. Visual acuity is intact. Any previous issues with metabolic encephalopathy have since been resolved. Patient also has an abrasion on the bridge of her nose. Patient states she ran into the wall of the bathroom on evening of this past week. Patient denies any falls or other injuries. Review of Systems 2 Review of Systems: Patient currently denies any chest pain, shortness of breath at rest or exertion, abdominal pain, constipation or diarrhea. Patient is chronically incontinent of urine. Patient denies issues with the prolapsed bladder. Patient denies any headache, visual changes or difficulty swallowing. Yes all other systems are reviewed and are negative [facility] Medical History (Updated 09/19/24 @ 21:38 by JEANINE Del Cid) Urinary incontinence Chronic calcific pancreatitis Hepatic steatosis Osteoarthritis Hyperlipidemia Chronic kidney disease (CKD) stage G3a/A1, moderately decreased glomerular filtration rate (GFR) between 45-59 mL/min/1.73 square meter and albuminuria creatinine ratio less than 30 mg/g Atherosclerosis of aorta Migraine GERD (gastroesophageal reflux disease) Peripheral neuropathy Insulin dependent type 2 diabetes mellitus CAD (coronary artery disease) HTN (hypertension) Cognitive capacity: Currently alert and orientated x3 Functional capacity: uses cane/walker Patient : No Surgical History H/O: hysterectomy History of cholecystectomy History of appendectomy History of arthroplasty of right shoulder Social History Household Members: Significant Other Housing: House Patient Tobacco Use Status: Former Tobacco user Smoked in Last 30 Days: No Use of substances other than those prescribed or required for medical reasons: No Advance Directives: Yes Advance Directives on File: Yes Advance Directives Date on File: 02/29/24 Do you have a plan to hurt others: No Plan Patient : No service: No Ebola Risk: Travel/Contact With Anyone From Affected Area/s: No Has Patient Experienced Ebola Symptoms: No Meds Allergies Allergy/AdvReac Type Severity Reaction Status Date / Time No Known Allergies Allergy Verified 09/19/24 14:18 Active Medications: Current Medications Acetaminophen (Acetaminophen 325 Mg Tablet) 650 mg PO Q6H PRN PRN Reason: Pain, Mild 1-3,fever,headache Albuterol/Ipratropium (Albuterol/Iprat 2.5/0.5mg 3 Ml Ampul.Neb) 3 ml INHALE Q4H PRN PRN Reason: Shortness of Breath/Wheezing Calcium Carbonate (Calcium Carbonate 750 Mg Tab.Chew) 750 mg PO Q4H PRN PRN Reason: Heartburn Dextrose (Dextrose 50 % 25 Gm/50 Ml Syringe) 25 gm IVPUSH Q15M PRN; Protocol PRN Reason: per Hypoglycemia Standing Ord. Enoxaparin Sodium (Enoxaparin Sodium 40 Mg/0.4 Ml Syringe) 40 mg SUBCUT Q24H JENIFFER Glucose (Glucose Gel 15 Gm Gel..Gram.) 15 gm PO Q15M PRN; Protocol PRN Reason: per Hypoglycemia Standing Ord. Dextrose/Sodium Chloride (D51/2ns) 1,000 mls @ 1,000 mls/hr IVCONT .Q1H JENIFFER Last Admin: 09/19/24 18:25 Dose: 1,000 mls/hr Insulin Human Lispro (Insulin Lispro 100 Unit/Ml 3 Ml Vial) 0 unit SUBCUT QIDACHS [facility]; Protocol Magnesium Hydroxide (Milk Of Magnesia 30 Ml Oral.Susp) 30 ml PO DAILY PRN PRN Reason: Constipation Melatonin (Melatonin 3 Mg Tablet) 6 mg PO BEDTIME PRN PRN Reason: Insomnia Ondansetron HCl (Ondansetron Hcl 4 Mg/2 Ml Vial) 4 mg IVPUSH Q8H PRN PRN Reason: Nausea and Vomiting Polyethylene Glycol (Polyethylene Glycol 3350 17 Gm Powd.Pack) 17 gm PO DAILY PRN PRN Reason: Constipation Senna (Sennosides 8.6 Mg Tablet) 17.2 mg PO BEDTIME JENIFFER Sodium Chloride (0.9 % Sodium Chloride Flush 3 Ml Syringe) 3 ml IVFLUSH QSHIFT [facility] Home Medications ?Medication ?Instructions ?Recorded ?Confirmed ?Last Taken ?Type albuterol sulfate 90 mcg/actuation 2 puff inhalation Q4H PRN 11/15/24 06/09/25 Unknown History aerosol inhaler Shortness Of Breath Or Wheezing atenolol 50 mg tablet 50 mg PO DAILY 02/26/24 09/19/24 09/17/24 History cefaclor 250 mg capsule 250 mg PO DAILY 02/26/24 09/19/24 09/17/24 History clopidogrel 75 mg tablet 75 mg PO DAILY 02/26/24 09/19/24 09/17/24 History empagliflozin 10 mg tablet 10 mg PO DAILY 02/26/24 09/19/24 09/17/24 History (Jardiance) hydrochlorothiazide 25 mg tablet 25 mg PO DAILY 02/26/24 09/19/24 09/17/24 History insulin glargine 100 unit/mL (3 25 unit subcut DAILY 02/26/24 09/19/24 09/17/24 History mL) subcutaneous pen (Basaglar KwikPen U-100 Insulin) meclizine 25 mg tablet 25 mg PO QID 02/26/24 09/19/24 09/17/24 History montelukast 10 mg tablet 10 mg PO BEDTIME 02/26/24 09/19/24 09/17/24 History omeprazole 40 mg capsule,delayed 40 mg PO BID@0630,1630 02/26/24 09/19/24 09/17/24 History release potassium chloride 20 mEq 20 meq PO DAILY 02/26/24 09/19/24 09/17/24 History tablet,extended release ropinirole 2 mg tablet 2 mg PO BEDTIME@2030 02/26/24 09/19/24 09/17/24 History rosuvastatin 40 mg tablet 40 mg PO DAILY 02/26/24 09/19/24 09/17/24 History sumatriptan succinate 100 mg tablet 100 mg PO DAILY MRX1 PRN migraine 02/26/24 09/19/24 Unknown History trospium 20 mg tablet 20 mg PO BID 02/26/24 09/19/24 09/17/24 History valsartan 160 mg tablet 160 mg PO DAILY 02/26/24 09/19/24 09/17/24 History zolpidem 5 mg tablet 5 mg PO BEDTIME PRN insomnia 02/26/24 09/19/24 Unknown History duloxetine 30 mg capsule,delayed 30 mg PO DAILY 09/19/24 09/19/24 09/17/24 History release ergocalciferol (vitamin D2) 1,250 1,250 mcg PO MOWEFR 09/19/24 09/19/24 09/16/24 History mcg (50,000 unit) capsule (Vitamin D2) furosemide 40 mg tablet 40 mg PO DAILY 09/19/24 09/19/24 09/17/24 History gabapentin 400 mg capsule 400 mg PO TID 09/19/24 09/19/24 09/17/24 History pregabalin 75 mg capsule 75 mg PO BID 09/19/24 09/19/24 09/17/24 History semaglutide 0.25 mg or 0.5 mg (2 0.5 mg subcut FR 09/19/24 09/19/24 09/16/24 History mg/3 mL) subcutaneous pen injector (Ozempic) vibegron 75 mg tablet (Gemtesa) 75 mg PO DAILY 09/19/24 09/19/24 09/17/24 History Physical Exam 2 Vital Signs and Narrative: Vital Signs: Last Vital Signs Temp 98.7 F 09/19/24 20:21 Pulse 91 09/19/24 20:21 Resp 15 09/19/24 20:21 BP 122/59 L 09/19/24 20:21 Pulse Ox 100 09/19/24 20:21 O2 Del Method Room Air 09/19/24 20:21 BMI result Body Mass Index 20.2 Alert and orientated X3, able to give good history. Neuro: CN II-X11 intact, no deficits, visual acuity intact EYES: PERRLA, EOM intact, purulent drainage noted in both eyes left greater than right, sclera nonicteric ENT: hearing intact, no issues with swallowing, uvula midline, lips moist, nares patent no epistaxis, edentulous Cardiac: S1 S2 RRR, no murmur, no JVD, no edema in Lower ext Pulmonary: lungs clear to auscultation B Abdominal: BS active in all 4 quadrants, no guarding, tenderness, rebounding MSK: strength 4/5 upper and lower extremities, no obvious swelling B knees : no CVA tenderness no bladder distension Extremities: no edema in lower extremities, PT and DP pulses palpable +2 Psych: mood stable, judgement and insight good Skin: intact, abrasion over bridge of nose Results Labs 09/19/24 15:44 09/19/24 15:46 Labs: Laboratory Results - last 24 hr 09/19/24 09/19/24 09/19/24 14:11 14:35 15:38 MCV MCH MCHC RDW Plt Count MPV Immature Gran % (Auto) Neut % (Auto) Lymph % (Auto) [place] % (Auto) Eos % (Auto) Baso % (Auto) Lymph # (Auto) [place] # (Auto) Eos # (Auto) Baso # (Auto) Abs Immat Gran (auto) Absolute Neuts (auto) Absolute Nucleated RBC Nucleated RBC % (auto) Anion Gap Estim Creat Clear Calc Estimated GFR POC Glucose 112 128 H 66 Random Glucose Lactic Acid Calcium Magnesium Total Bilirubin AST ALT Alkaline Phosphatase Total Protein Albumin Urine Color Urine Appearance Urine pH Ur Specific [place] Urine Protein Urine Glucose (UA) Urine Ketones Urine Blood Urine Nitrite Ur Leukocyte Esterase Urine RBC Urine WBC Ur Squamous Epith Cells Urine Bacteria Hyaline Casts 09/19/24 09/19/24 09/19/24 15:44 15:46 16:41 MCV 93.8 MCH 31.6 MCHC 33.7 RDW 14.6 Plt Count 259 MPV 9.9 Immature Gran % (Auto) 0.3 Neut % (Auto) 85.6 H Lymph % (Auto) 9.3 L [place] % (Auto) 4.7 Eos % (Auto) 0.0 Baso % (Auto) 0.1 Lymph # (Auto) 1.4 [place] # (Auto) 0.7 Eos # (Auto) 0.0 Baso # (Auto) 0.0 Abs Immat Gran (auto) 0.05 H Absolute Neuts (auto) 13.2 H Absolute Nucleated RBC 0.000 Nucleated RBC % (auto) 0.0 Anion Gap 12 Estim Creat Clear Calc 35.4 Estimated GFR 56 POC Glucose 74 Random Glucose 50 L* Lactic Acid Calcium 8.2 L Magnesium 1.4 L* Total Bilirubin 0.7 AST 57 H ALT 30 Alkaline Phosphatase 151 H Total Protein 5.2 L Albumin 3.0 L Urine Color Urine Appearance Urine pH Ur Specific [place] Urine Protein Urine Glucose (UA) Urine Ketones Urine Blood Urine Nitrite Ur Leukocyte Esterase Urine RBC Urine WBC Ur Squamous Epith Cells Urine Bacteria Hyaline Casts 09/19/24 09/19/24 09/19/24 17:15 18:11 18:26 MCV MCH MCHC RDW Plt Count MPV Immature Gran % (Auto) Neut % (Auto) Lymph % (Auto) [place] % (Auto) Eos % (Auto) Baso % (Auto) Lymph # (Auto) [place] # (Auto) Eos # (Auto) Baso # (Auto) Abs Immat Gran (auto) Absolute Neuts (auto) Absolute Nucleated RBC Nucleated RBC % (auto) Anion Gap Estim Creat Clear Calc Estimated GFR POC Glucose 246 H Random Glucose Lactic Acid 3.5 H* Calcium Magnesium Total Bilirubin AST ALT Alkaline Phosphatase Total Protein Albumin Urine Color Yellow Urine Appearance Clear Urine pH 6.0 Ur Specific [place] 1.010 Urine Protein Negative Urine Glucose (UA) >=1000 H Urine Ketones Negative Urine Blood Negative Urine Nitrite Negative Ur Leukocyte Esterase Negative Urine RBC 0-2 Urine WBC 0-5 Ur Squamous Epith Cells 0-2 Urine Bacteria None Seen Hyaline Casts 0-2 09/19/24 19:30 MCV MCH MCHC RDW Plt Count MPV Immature Gran % (Auto) Neut % (Auto) Lymph % (Auto) [place] % (Auto) Eos % (Auto) Baso % (Auto) Lymph # (Auto) [place] # (Auto) Eos # (Auto) Baso # (Auto) Abs Immat Gran (auto) Absolute Neuts (auto) Absolute Nucleated RBC Nucleated RBC % (auto) Anion Gap Estim Creat Clear Calc Estimated GFR POC Glucose 274 H Random Glucose Lactic Acid Calcium Magnesium Total Bilirubin AST ALT Alkaline Phosphatase Total Protein Albumin Urine Color Urine Appearance Urine pH Ur Specific [place] Urine Protein Urine Glucose (UA) Urine Ketones Urine Blood Urine Nitrite Ur Leukocyte Esterase Urine RBC Urine WBC Ur Squamous Epith Cells Urine Bacteria Hyaline Casts ECG Prior ECG tracings: not available for review Imaging Radiologist's Impressions: CXR Findings: The lungs are clear. Heart size is normal. No acute fracture. IMPRESSION: 1. No acute findings. Assessment and Plan (1) Hypoglycemia: Status: Acute Plan Pt is a 78 yo female with PMH insulin-dependent diabetes type 2 recently started back on ThursdaySeptember 16, hypertension, GERD, HLD, CAD/ atherosclerosis of aorta, CKD stage 3, COVID, chronic calcific pancreatitis, hepatic steatosis, vertigo, neuropathy, insomnia, urinary incontinence, B knee OA with recent injections, R shoulder repair, L shoulder OA, severe degenerative disc disease L4/L5, hysterectomy, appendectomy, cholecystectomy is being admitted for severe hypoglycemia resulting in unresponsiveness. Pt has had previous hospitalizations for same issue since 2019. Hypoglycemia/ IDDM II -Blood glucose levels currently stable, no IVF with dextrose required currently, pt is hungry, diabetic diet ordered, supplemental glucerna shakes -Metabolic Encephalopathy resolved (witnessed at the scene) -SSI, ACHS glucose checks -Holding Long acting insulin: pt normally takes mid day, currently 20 units after starting Ozemipic this past Thursday. Adjust accordingly. See below for Ozepmic recs and hx of calcific pancreatitis -Holding Jardiance, renal fx stable -A1C pending -life skills educator ordered -Top Executive ordered noting BMI 20, need for education on appropriate snacks to help prevent hypoglycemia -CGM may need to be upgraded, does not alarm when BG is low Hypomagnesemia -MG 1.4, 2 gms providced IV -Daily MG -Telemetry Elevated Lactic Acid, T 100.2 -UA pending, pt received one dose of ceftriaxone in ED, will hold on continuing ABX until UA is back -CXR neg for acute findings -Tobramacin started for purulent drainage from Both eyes, no obvious conjunctivitis -BC pending Chronic calcific pancreatitis dx 02/2024 - Ozempic was stopped then -Recommend pt not resume Ozempic noting this hx -Lipase added BMI 20 -nutritional consult ordered -Glucerna shakes added -Pt is edentulous but denies issues with swallowing or eating Abrasion Bridge of nose (self inflicted accidental injury last ) -Bacitracin BID ordered -Nares patent DVT prophlaxis: lovenix PPI prophylaxis: omeperazole MED REC COMPLETED FULL CODE (confirmed with pt) Quality Stroke Does the patient have a stroke diagnosis?: No Reason for No Anti-thrombotic by Day Two: N/A - Med Ordered VTE Prior VTE?: No VTE Risk Level:: Medical - moderate - high VTE Device Contraindication: N/A - Device Ordered VTE Drug Contraindication: N/A - Med Ordered
[2024-09-19 20:30] LABS: Reflex Lactate? Lactic Acid Added
[2024-09-19 21:00] LABS: Free T4 (Free Thyroxine) 0.87 ng/dL (0.71-1.85); Thyroid Stimulating Hormone 3.53 uIU/mL (0.32-4.0)
--- NOTE | 2024-09-19 21:14 | PHA.MEDREC ---
Addendum entered by Yovanny Cardona PharmD 09/19/24 21:48: reviewed Original Note: Pharmacy Consult ? Medication Reconciliation Pharmacy has completed the medication reconciliation. Spoke to patient to confirm med list. patient couldn't remember all of the names of her medication, however she could tell me yes or no when I named them to her. Patient confirmed Basaglar 20 units daily, Vitamin D2 1,250 mg is every Thursday, Thursday and Thursday, last dose 09/16/24, Ozempic 0.5 mg ever Thursday, last dose 09/16/24.
[2024-09-19 21:24] LABS: ~Lactic Acid-LAB USE ONLY 2.5 mmol/L (0.5-2.0)
[2024-09-19 21:36] LABS: Glucose, Whole Blood 209 mg/dL (60-115)
[2024-09-19] MEDS: Insulin Lispro 100 UNIT/ML 3 ML VIAL SUBCUT (21:40)
[2024-09-19] MEDS: Enoxaparin Sodium 40 MG/0.4 ML SYRINGE SUBCUT (21:40)
[2024-09-19] MEDS: Sennosides 8.6 MG TABLET 17.2 MG PO (21:41)
[2024-09-19] MEDS: Tobramycin Sulfate 0.3% Sol Op 5 ML BTL 1 DROP EYE-BOTH (21:41)
[2024-09-19 21:45] LABS: Influenza A PCR NEGATIVE (Negative); Influenza B PCR NEGATIVE (Negative); Resp Syncy Virus RNA Qual PCR NEGATIVE (Negative); SARS COV2 PCR INHOUSE NEGATIVE (Negative)
--- NOTE | 2024-09-19 21:45 | PC.NURSE ---
medicated per jun. pt given a sandwich and drink
[2024-09-19 22:07] LABS: Lipase < 4 U/L (8-78)
[2024-09-19 23:07] LABS: Reflex Lactate? 2 Y
--- NOTE | 2024-09-19 23:10 | PC.NURSE ---
elevated lactic report to Dr. Rodrigez, pt reposition and jacinda care completed.
--- NOTE | 2024-09-19 23:54 | PC.NURSE ---
pt assisted with bedpan, pt had a small bowel movement.
[2024-09-19 23:59] LABS: ~Lactic Acid-LAB USE ONLY 2.7 mmol/L (0.5-2.0)
--- NOTE | 2024-09-20 00:04 | PC.NURSE ---
Notified DR. Covington of critical lactic.
[2024-09-20] MEDS: 0.9 % Sodium Chloride Flush 3 ML SYRINGE IVFLUSH ×3 (01:01→16:15)
[2024-09-20] MEDS: Melatonin 3 MG TABLET 6 MG PO (01:01)
[2024-09-20] MEDS: Tobramycin Sulfate 0.3% Sol Op 5 ML BTL 1 DROP EYE-BOTH ×2 (01:01→05:11)
--- NOTE | 2024-09-20 01:05 | PC.NURSE ---
Pt medicated per mar and repositioned
[2024-09-20 04:30] VITALS: BP 113/58; PULSE 88; RESP 12; TEMP 37.1; O2SAT 99
--- NOTE | 2024-09-20 05:14 | PC.NURSE ---
medicated per mar, repositioned for comfort.
[2024-09-20 05:37] LABS: MANUAL DIFF FLAG NO
[2024-09-20 05:45] LABS: Basophils Absolute Auto 0.1 X10*3/uL (0.0-0.2); Basophils Percent Auto 0.4 % (0-2); Eosinophils Absolute Auto 0.1 X10*3/uL (0.0-0.4); Eosinophils Percent Auto 0.6 % (0-4); Hemoglobin 9.9 g/dl (12.0-16.0); Imm Gran Abs Auto 0.05 X10*3/uL (0.00-0.03); Imm Gran Pct Auto 0.4 % (0.0-0.4); Lymphocytes Absolute Auto 2.6 X10*3/uL (1.2-4.9); Lymphocytes Percent Auto 22.3 % (20-40); Mean Corpuscular HGB Conc 34.1 g/dl (31.0-35.0); Mean Corpuscular Hemoglobin 31.7 pg (27.0-33.0); Mean Corpuscular Volume 92.9 fL (80.0-98.0); Mean Platelet Volume 10.1 fL (9.4-12.3); Monocytes Percent Auto 8.4 % (2-11); Neutrophils Absolute Auto 7.9 x10*3/uL (2.0-8.3); Neutrophils Percent Auto 67.9 % (45-73); Platelet Count 200 X10*3/uL (160-400); Red Blood Count 3.12 X10*6/uL (4.20-5.50); Red Cell Distribution Width 14.6 % (11.0-16.0); White Blood Count 11.6 X10*3/uL (4.8-10.8)
[2024-09-20 05:56] LABS: Magnesium 1.9 mg/dL (1.6-2.6)
[2024-09-20 06:07] LABS: Alanine Aminotransferase 24 U/L (0-31); Albumin Level 2.6 g/dL (3.5-5.0); Alkaline Phosphatase 129 U/L (39-117); Anion Gap 11 (12-20); Aspartate Amino Transferase 46 U/L (5-31); Bilirubin Total 0.4 mg/dL (0.0-1.0); Blood Urea Nitrogen 9 mg/dL (9-16); Calcium 8.1 mg/dL (8.4-10.2); Carbon Dioxide 25 mmol/L (22-29); Chloride 105 mmol/L (96-108); Creatinine Clr Calc Pharmacy 35.8; Estimated Glomerular Filt Rate 57; Glucose Random 42 mg/dL (60-115); Potassium 2.8 mmol/L (3.3-5.1); Sodium 138 mmol/L (135-145); Total Protein 4.6 g/dL (6.5-8.0)
[2024-09-20] MEDS: Dextrose 50 % 25 GM/50 ML SYRINGE IVPUSH (06:09)
--- NOTE | 2024-09-20 06:13 | PC.NURSE ---
Dr. Covington, Critical Potassium 2.8 and POC was 42, pt given dextrose give IV push
[2024-09-20] MEDS: Potassium Chloride Packet 20 MEQ PACKET 40 MEQ PO ×2 (06:20→06:39)
[2024-09-20 06:27] LABS: Glucose, Whole Blood 231 mg/dL (60-115)
[2024-09-20] MEDS: Potassium Chloride/H20 10 MEQ/100 ML PIGGYBACK 100 MEQ IV (06:31)
[2024-09-20] MEDS: Acetaminophen 325 MG TABLET 650 MG PO (06:39)
--- NOTE | 2024-09-20 06:40 | PC.NURSE ---
pt refusing Potassium Iv, Dr. Covington notified po Potassium given and medicated for headache.
[2024-09-20 06:56] LABS: Glucose, Whole Blood 191 mg/dL (60-115)
--- NOTE | 2024-09-20 07:02 | PC.NURSE ---
pt had 1 episode of vomiting, incontinent of stool, complete bed change, poc 191
[2024-09-20 07:07] LABS: Estimated Average Glucose 148 mg/dL; Hemoglobin A1C 161.3706 umol/L; Hemoglobin A1c % 6.8 % (<6.0); Total Hemoglobin (HGBA1C) 3179.0918 umol/L
[2024-09-20 07:12] LABS: Glucose, Whole Blood 183 mg/dL (60-115)
--- NOTE | 2024-09-20 07:19 | PC.NURSE ---
patient a&o, patient monitor intact nsr on monitor, rr equal/non labored, pt states she walks with cane at baseline, c/o 5/10 bilateral leg pain, pt was found to have a poc of 42 at 530 am, she was given dextrose which increased her blood sugar to 231, it has steadily decreased to 191 now 183, Dr. Dee was notified and and decision was made to hold breakfast insulin. Pt given breakfast tray, call pérez within reach, plan of care ongoing
[2024-09-20 08:36] VITALS: BMI 20.9
[2024-09-20 09:02] VITALS: BP 127/62; PULSE 87; RESP 16; TEMP 36.8; O2SAT 100
[2024-09-20] MEDS: Gabapentin 400 MG CAPSULE PO ×3 (09:29→20:23)
[2024-09-20] MEDS: Atorvastatin Calcium 80 MG TABLET PO (09:29)
[2024-09-20] MEDS: Potassium Chloride ER 20 MEQ TAB.ER.PRT PO (09:29)
[2024-09-20] MEDS: DULoxetine HCl 30 MG CAPSULE.DR PO (09:29)
[2024-09-20] MEDS: Pregabalin 75 MG CAPSULE PO ×2 (09:29→20:23)
[2024-09-20] MEDS: Clopidogrel Bisulfate 75 MG TABLET PO (09:29)
[2024-09-20 10:50] LABS: Blood Urea Nitrogen 9 mg/dL (9-16); Creatinine Clr Calc Pharmacy 36.6; Estimated Glomerular Filt Rate 58; Glucose Random 183 mg/dL (60-115)
--- NOTE | 2024-09-20 10:52 | MHC.CM.PN ---
IMM DELIVERED PT LIVES WITH SPOUSE AND IS FUNCTIONALLY INDEP. PT USES A CANE FOR MOBILITY PRN. + DRIVES. DIABETIC SUPPLIES VIA [employer] AND SENSOR VIA COMPANY IN [place]. PT HAS MOW VIA [facility]. + HCP ON FILE AND VERIFIED. PCP DR. RODRIGUEZ DP: HOME WITH RESUMPTION OF [facility] FOR MOW. PT DECLINES HOME CARE/VNA AT THIS TIME. PT'S SON WILL TRANSPORT HOME. CM WILL CONTINUE TO FOLLOW FOR ANY CHANGE TO DC PLAN/NEEDS.
[2024-09-20 11:12] LABS: Anion Gap 11 (12-20); Carbon Dioxide 24 mmol/L (22-29); Chloride 104 mmol/L (96-108); Potassium 3.9 mmol/L (3.3-5.1); Sodium 135 mmol/L (135-145)
--- NOTE | 2024-09-20 11:27 | P.PNIM_ITS ---
Subjective Subjective Date of Service: 09/20/24 Interval History: diarrhea Physical Exam 2 Vital Signs: Vital Signs: Last Vital Signs Temp 98.3 F 09/20/24 09:02 Pulse 87 09/20/24 09:02 Resp 16 09/20/24 09:02 BP 127/62 09/20/24 09:02 Pulse Ox 100 09/20/24 09:02 O2 Del Method Room Air 09/20/24 09:02 BMI result Body Mass Index 20.2 General: AO X 3, no acute distress Resp: CTA bilateral, no accessory muscles used CVS: S1,S2,RRR GI: soft, non tender, non distended Neuro: motor grossly intact, alert Psych: appropriate affect, appropriate insight Objective Data Active Medications Acetaminophen (Acetaminophen 325 Mg Tablet) 650 mg PO Q6H PRN PRN Reason: Pain, Mild 1-3,fever,headache Last Admin: 09/20/24 06:39 Dose: 650 mg Documented By: JESS Albuterol/Ipratropium (Albuterol/Iprat 2.5/0.5mg 3 Ml Ampul.Neb) 3 ml INHALE Q4H PRN PRN Reason: Shortness of Breath/Wheezing Atorvastatin Calcium (Atorvastatin Calcium 80 Mg Tablet) 80 mg PO DAILY [facility] Last Admin: 09/20/24 09:29 Dose: 80 mg Documented By: CONCHIS Bacitracin (Bacitracin Oint 14 Gm Tube) 1 appl TOPICAL BID [facility]; Protocol Last Admin: 09/20/24 09:33 Dose: Not Given Documented By: CONCHIS Non-Admin Reason: Med Not Available Calcium Carbonate (Calcium Carbonate 750 Mg Tab.Chew) 750 mg PO Q4H PRN PRN Reason: Heartburn Clopidogrel Bisulfate (Clopidogrel Bisulfate 75 Mg Tablet) 75 mg PO DAILY [facility] Last Admin: 09/20/24 09:29 Dose: 75 mg Documented By: CONCHIS Dextrose (Dextrose 50 % 25 Gm/50 Ml Syringe) 25 gm IVPUSH Q15M PRN; Protocol PRN Reason: per Hypoglycemia Standing Ord. Last Admin: 09/20/24 06:09 Dose: 25 gm Documented By: JESS Duloxetine HCl (Duloxetine Hcl 30 Mg Capsule.) 30 mg PO DAILY [facility] Last Admin: 09/20/24 09:29 Dose: 30 mg Documented By: CONCHIS Enoxaparin Sodium (Enoxaparin Sodium 40 Mg/0.4 Ml Syringe) 40 mg SUBCUT Q24H [facility] Last Admin: 09/19/24 21:40 Dose: 40 mg Documented By: JESS Gabapentin (Gabapentin 400 Mg Capsule) 400 mg PO TID [facility] Last Admin: 09/20/24 09:29 Dose: 400 mg Documented By: CONCHIS Glucose (Glucose Gel 15 Gm Gel..Gram.) 15 gm PO Q15M PRN; Protocol PRN Reason: per Hypoglycemia Standing Ord. Insulin Human Lispro (Insulin Lispro 100 Unit/Ml 3 Ml Vial) 0 unit SUBCUT QIDACHS [facility]; Protocol Last Admin: 09/20/24 07:16 Dose: Not Given Documented By: CORNELIO Non-Admin Reason: Physician Held Med Magnesium Hydroxide (Milk Of Magnesia 30 Ml Oral.Susp) 30 ml PO DAILY PRN PRN Reason: Constipation Melatonin (Melatonin 3 Mg Tablet) 6 mg PO BEDTIME PRN PRN Reason: Insomnia Last Admin: 09/20/24 01:01 Dose: 6 mg Documented By: JESS Montelukast Sodium (Montelukast Sodium 10 Mg Tablet) 10 mg PO BEDTIME JENIFFER Omeprazole (Omeprazole 40 Mg Capsule.Dr) 40 mg PO BID@0630,1630 [facility] Ondansetron HCl (Ondansetron Hcl 4 Mg/2 Ml Vial) 4 mg IVPUSH Q8H PRN PRN Reason: Nausea and Vomiting Polyethylene Glycol (Polyethylene Glycol 3350 17 Gm Powd.Pack) 17 gm PO DAILY PRN PRN Reason: Constipation Potassium Chloride (Potassium Chloride Er 20 Meq Tab.Er.Prt) 20 meq PO DAILY [facility] Last Admin: 09/20/24 09:29 Dose: 20 meq Documented By: CONCHSI Pregabalin (Pregabalin 75 Mg Capsule) 75 mg PO BID [facility] Last Admin: 09/20/24 09:29 Dose: 75 mg Documented By: CONCHIS Ropinirole HCl (Ropinirole Hcl 2 Mg Tablet) 2 mg PO BEDTIME@2030 [facility] Senna (Sennosides 8.6 Mg Tablet) 17.2 mg PO BEDTIME [facility] Last Admin: 09/19/24 21:41 Dose: 17.2 mg Documented By: JESS Sodium Chloride (0.9 % Sodium Chloride Flush 3 Ml Syringe) 3 ml IVFLUSH QSHIFT [facility] Last Admin: 09/20/24 07:23 Dose: 3 ml Documented By: CORNELIO Tobramycin Sulfate (Tobramycin Sulfate 0.3% Rina Op 5 Ml Btl) 1 drop EYE-BOTH Q4H [facility] Stop: 09/24/24 21:29 Last Admin: 09/20/24 09:33 Dose: Not Given Documented By: CONCHIS Non-Admin Reason: Patient Refused Labs 09/20/24 05:24 09/20/24 10:28 Labs: Laboratory Results - last 24 hr 09/19/24 09/19/24 09/19/24 14:11 14:35 15:38 MCV MCH MCHC RDW Plt Count MPV Immature Gran % (Auto) Neut % (Auto) Lymph % (Auto) [place] % (Auto) Eos % (Auto) Baso % (Auto) Lymph # (Auto) [place] # (Auto) Eos # (Auto) Baso # (Auto) Abs Immat Gran (auto) Absolute Neuts (auto) Absolute Nucleated RBC Nucleated RBC % (auto) Anion Gap Estim Creat Clear Calc Estimated GFR POC Glucose 112 128 H 66 Random Glucose Estimat Average Glucose Hemoglobin A1c % Lactic Acid Lactic Acid F/U @ 2Hr Lactic Acid F/U @ 4Hr Calcium Magnesium Total Bilirubin AST ALT Alkaline Phosphatase Total Protein Albumin Lipase TSH Free T4 Urine Color Urine Appearance Urine pH Ur Specific Trout Urine Protein Urine Glucose (UA) Urine Ketones Urine Blood Urine Nitrite Ur Leukocyte Esterase Urine RBC Urine WBC Ur Squamous Epith Cells Urine Bacteria Hyaline Casts Influenza Type A (PCR) Influenza Type B (PCR) RSV RNA Qual (PCR) SARS-CoV-2 RNA (RT-PCR) 09/19/24 09/19/24 09/19/24 15:44 15:46 16:41 MCV 93.8 MCH 31.6 MCHC 33.7 RDW 14.6 Plt Count 259 MPV 9.9 Immature Gran % (Auto) 0.3 Neut % (Auto) 85.6 H Lymph % (Auto) 9.3 L [place] % (Auto) 4.7 Eos % (Auto) 0.0 Baso % (Auto) 0.1 Lymph # (Auto) 1.4 [place] # (Auto) 0.7 Eos # (Auto) 0.0 Baso # (Auto) 0.0 Abs Immat Gran (auto) 0.05 H Absolute Neuts (auto) 13.2 H Absolute Nucleated RBC 0.000 Nucleated RBC % (auto) 0.0 Anion Gap 12 Estim Creat Clear Calc 35.4 Estimated GFR 56 POC Glucose 74 Random Glucose 50 L* Estimat Average Glucose 148 Hemoglobin A1c % 6.8 H Lactic Acid Lactic Acid F/U @ 2Hr Lactic Acid F/U @ 4Hr Calcium 8.2 L Magnesium 1.4 L* Total Bilirubin 0.7 AST 57 H ALT 30 Alkaline Phosphatase 151 H Total Protein 5.2 L Albumin 3.0 L Lipase < 4 L TSH 3.53 Free T4 0.87 Urine Color Urine Appearance Urine pH Ur Specific Trout Urine Protein Urine Glucose (UA) Urine Ketones Urine Blood Urine Nitrite Ur Leukocyte Esterase Urine RBC Urine WBC Ur Squamous Epith Cells Urine Bacteria Hyaline Casts Influenza Type A (PCR) Influenza Type B (PCR) RSV RNA Qual (PCR) SARS-CoV-2 RNA (RT-PCR) 09/19/24 09/19/24 09/19/24 17:15 18:11 18:26 MCV MCH MCHC RDW Plt Count MPV Immature Gran % (Auto) Neut % (Auto) Lymph % (Auto) [place] % (Auto) Eos % (Auto) Baso % (Auto) Lymph # (Auto) [place] # (Auto) Eos # (Auto) Baso # (Auto) Abs Immat Gran (auto) Absolute Neuts (auto) Absolute Nucleated RBC Nucleated RBC % (auto) Anion Gap Estim Creat Clear Calc Estimated GFR POC Glucose 246 H Random Glucose Estimat Average Glucose Hemoglobin A1c % Lactic Acid 3.5 H* Lactic Acid F/U @ 2Hr Lactic Acid F/U @ 4Hr Calcium Magnesium Total Bilirubin AST ALT Alkaline Phosphatase Total Protein Albumin Lipase TSH Free T4 Urine Color Yellow Urine Appearance Clear Urine pH 6.0 Ur Specific [place] 1.010 Urine Protein Negative Urine Glucose (UA) >=1000 H Urine Ketones Negative Urine Blood Negative Urine Nitrite Negative Ur Leukocyte Esterase Negative Urine RBC 0-2 Urine WBC 0-5 Ur Squamous Epith Cells 0-2 Urine Bacteria None Seen Hyaline Casts 0-2 Influenza Type A (PCR) Influenza Type B (PCR) RSV RNA Qual (PCR) SARS-CoV-2 RNA (RT-PCR) 09/19/24 09/19/24 09/19/24 19:30 21:04 21:33 MCV MCH MCHC RDW Plt Count MPV Immature Gran % (Auto) Neut % (Auto) Lymph % (Auto) [place] % (Auto) Eos % (Auto) Baso % (Auto) Lymph # (Auto) [place] # (Auto) Eos # (Auto) Baso # (Auto) Abs Immat Gran (auto) Absolute Neuts (auto) Absolute Nucleated RBC Nucleated RBC % (auto) Anion Gap Estim Creat Clear Calc Estimated GFR POC Glucose 274 H 209 H Random Glucose Estimat Average Glucose Hemoglobin A1c % Lactic Acid Lactic Acid F/U @ 2Hr 2.5 H* Lactic Acid F/U @ 4Hr Calcium Magnesium Total Bilirubin AST ALT Alkaline Phosphatase Total Protein Albumin Lipase TSH Free T4 Urine Color Urine Appearance Urine pH Ur Specific [place]out Urine Protein Urine Glucose (UA) Urine Ketones Urine Blood Urine Nitrite Ur Leukocyte Esterase Urine RBC Urine WBC Ur Squamous Epith Cells Urine Bacteria Hyaline Casts Influenza Type A (PCR) NEGATIVE Influenza Type B (PCR) NEGATIVE RSV RNA Qual (PCR) NEGATIVE SARS-CoV-2 RNA (RT-PCR) NEGATIVE 09/19/24 09/20/24 09/20/24 23:31 05:24 06:23 MCV 92.9 MCH 31.7 MCHC 34.1 RDW 14.6 Plt Count 200 MPV 10.1 Immature Gran % (Auto) 0.4 Neut % (Auto) 67.9 Lymph % (Auto) 22.3 [place] % (Auto) 8.4 Eos % (Auto) 0.6 Baso % (Auto) 0.4 Lymph # (Auto) 2.6 [place] # (Auto) 1.0 Eos # (Auto) 0.1 Baso # (Auto) 0.1 Abs Immat Gran (auto) 0.05 H Absolute Neuts (auto) 7.9 Absolute Nucleated RBC 0.000 Nucleated RBC % (auto) 0.0 Anion Gap 11 L Estim Creat Clear Calc 35.8 Estimated GFR 57 POC Glucose 231 H Random Glucose 42 L* Estimat Average Glucose Hemoglobin A1c % Lactic Acid Lactic Acid F/U @ 2Hr Lactic Acid F/U @ 4Hr 2.7 H* Calcium 8.1 L Magnesium 1.9 Total Bilirubin 0.4 AST 46 H ALT 24 Alkaline Phosphatase 129 H Total Protein 4.6 L Albumin 2.6 L Lipase TSH Free T4 Urine Color Urine Appearance Urine pH Ur Specific [place]out Urine Protein Urine Glucose (UA) Urine Ketones Urine Blood Urine Nitrite Ur Leukocyte Esterase Urine RBC Urine WBC Ur Squamous Epith Cells Urine Bacteria Hyaline Casts Influenza Type A (PCR) Influenza Type B (PCR) RSV RNA Qual (PCR) SARS-CoV-2 RNA (RT-PCR) 09/20/24 09/20/24 09/20/24 06:53 07:08 10:28 MCV MCH MCHC RDW Plt Count MPV Immature Gran % (Auto) Neut % (Auto) Lymph % (Auto) [place] % (Auto) Eos % (Auto) Baso % (Auto) Lymph # (Auto) [place] # (Auto) Eos # (Auto) Baso # (Auto) Abs Immat Gran (auto) Absolute Neuts (auto) Absolute Nucleated RBC Nucleated RBC % (auto) Anion Gap 11 L Estim Creat Clear Calc 36.6 Estimated GFR 58 POC Glucose 191 H 183 H Random Glucose 183 H Estimat Average Glucose Hemoglobin A1c % Lactic Acid Lactic Acid F/U @ 2Hr Lactic Acid F/U @ 4Hr Calcium 8.0 L Magnesium Total Bilirubin AST ALT Alkaline Phosphatase Total Protein Albumin Lipase TSH Free T4 Urine Color Urine Appearance Urine pH Ur Specific [place] Urine Protein Urine Glucose (UA) Urine Ketones Urine Blood Urine Nitrite Ur Leukocyte Esterase Urine RBC Urine WBC Ur Squamous Epith Cells Urine Bacteria Hyaline Casts Influenza Type A (PCR) Influenza Type B (PCR) RSV RNA Qual (PCR) SARS-CoV-2 RNA (RT-PCR) Assessment and Plan (1) Hypoglycemia: Status: Acute Plan 78F PMH DM, CAD, CKD III, chronic pancreatitis, hepatic steatosis, presented with ams found to be hypoglycemia acute metabolic encephalopathy due to DM with hypoglycemia Mental status back to baseline, was hypoglycemic again in the morning Continue insulin sliding scale as also hyperglycemic at times Holding orals Acute hypomagnesemia Received replacement Moderate protein calorie malnutrition with unintentional weight loss Nutritional intake encouraged chronic pancreatitis, chronic diarrhea and steatohepatitis unclear etiology check ct abd, outpatient gi CKD III better than baseline acute hypokalemia replace and monitor dvt prophylaxis - lovenox full code reason for continued hospitalization:hypokalemia Quality Stroke Does the patient have a stroke diagnosis?: No Reason for No Anti-thrombotic by Day Two: N/A - Med Ordered VTE Prior VTE?: No VTE Risk Level:: Medical - moderate - high VTE Device Contraindication: N/A - Device Ordered VTE Drug Contraindication: N/A - Med Ordered
[2024-09-20 11:57] LABS: Glucose, Whole Blood 121 mg/dL (60-115)
--- NOTE | 2024-09-20 12:08 | P.CDIM_ITS ---
PROVIDER RESPONSE TEXT: To clarify, the appropriate diagnosis supported by the clinical indicators: Acute Lactic acidosis: possible QUERY TEXT: PHYSICIAN'S DOCUMENTATION REQUEST Date of Query: 09/20/2024 11:59 AM EDT Patient Name: Sp Ornelas Admit Date: 09/19/2024 Dear Nathanael Dee MD, A review of the medical record indicates additional documentation may be needed. Please review below and update the documentation accordingly. Clinical Indicators: H&P 09/19/24 - elevated lactic acid LA 3.5 2.7 Elevated LA likely secondary from insult suffered due to severe hypoglycemia. Fluids Is there a diagnosis that correlates with these lab findings: Acute Lactic acidosis possible, resolved, suspected etc. Chronic Lactic acidosis Other specified Other (explain) Clinically unable to determine (explain) Thank you, Na Solitario, CCS, CDIS Use of terms such as suspected, likely, concern for, or probable (associated with a specific diagnosi s that is being evaluated, monitored, or treated as if it exists) are acceptable and can be coded in the inpatient se tting, when documented at the time of discharge. Please use your independent medical judgment in providing your response. THIS QUERY IS PART OF THE PERMANENT MEDICAL RECORD
--- NOTE | 2024-09-20 12:23 | MHC.CLN ---
consult see teaching record
[2024-09-20 15:10] VITALS: BP 100/59; PULSE 89; RESP 16; TEMP 36.7; O2SAT 96
[2024-09-20] MEDS: Omeprazole 40 MG CAPSULE.DR PO (16:14)
[2024-09-20 16:30] LABS: Glucose, Whole Blood 104 mg/dL (60-115)
[2024-09-20 18:57] LABS: CDiff Gene PCR NEGATIVE (Negative)
[2024-09-20 19:25] VITALS: BP 130/64; PULSE 86; RESP 16; TEMP 36.4; O2SAT 96
[2024-09-20] MEDS: Enoxaparin Sodium 40 MG/0.4 ML SYRINGE SUBCUT (20:23)
[2024-09-20] MEDS: Montelukast Sodium 10 MG TABLET PO (20:23)
[2024-09-20] MEDS: rOPINIRole HCL 2 MG TABLET PO (20:23)
[2024-09-20 20:58] LABS: Glucose, Whole Blood 206 mg/dL (60-115)
[2024-09-20] MEDS: Insulin Lispro 100 UNIT/ML 3 ML VIAL SUBCUT (21:09)
[2024-09-21] MEDS: Melatonin 3 MG TABLET 6 MG PO (00:01)
[2024-09-21] MEDS: Acetaminophen 325 MG TABLET 650 MG PO (00:01)
[2024-09-21] MEDS: 0.9 % Sodium Chloride Flush 3 ML SYRINGE IVFLUSH (00:05)
[2024-09-21 03:12] VITALS: BP 130/60; PULSE 97; RESP 20; TEMP 36.8; O2SAT 98
[2024-09-21] MEDS: Omeprazole 40 MG CAPSULE.DR PO (05:49)
--- NOTE | 2024-09-21 05:50 | PC.NURSE ---
patient is refusing tobramycin, as she thinks it is worsening her eye infection, which i told her is not likely, but she continues to refuse. complains of eye discharge.
[2024-09-21 05:59] LABS: Hematocrit 26.8 % (37.0-47.0); Hemoglobin 9.2 g/dl (12.0-16.0); Mean Corpuscular HGB Conc 34.3 g/dl (31.0-35.0); Mean Corpuscular Hemoglobin 32.3 pg (27.0-33.0); Mean Platelet Volume 10.6 fL (9.4-12.3); Platelet Count 170 X10*3/uL (160-400); Red Blood Count 2.85 X10*6/uL (4.20-5.50); Red Cell Distribution Width 14.5 % (11.0-16.0); White Blood Count 7.2 X10*3/uL (4.8-10.8)
[2024-09-21 06:19] LABS: Anion Gap 10 (12-20); Blood Urea Nitrogen 9 mg/dL (9-16); Calcium 7.8 mg/dL (8.4-10.2); Carbon Dioxide 23 mmol/L (22-29); Chloride 103 mmol/L (96-108); Estimated Glomerular Filt Rate 55; Glucose Random 177 mg/dL (60-115); Iron 25 mcg/dL (30-160); Percent Iron Saturation 21 % (15-50); Potassium 3.4 mmol/L (3.3-5.1); Sodium 133 mmol/L (135-145); Total Iron Binding Capacity 120 mcg/dL (228-428); Unsaturated Iron Binding 95 ug/dL
[2024-09-21 07:42] VITALS: BP 129/88; PULSE 87; RESP 16; TEMP 36.7; O2SAT 98
[2024-09-21 07:56] LABS: Glucose, Whole Blood 107 mg/dL (60-115)
[2024-09-21 08:08] LABS: HBS Num1 5.99 mIU/mL (0-7.99); HBc Num1 0.06 S/CO (0.00-0.79); HBsAGNum1 0.54 S/CO (0.00-0.99); Hepatitis B Core Antibody Nonreactive (Nonreactive); Hepatitis B Surface Antigen Negative (Negative); ~HepC Num1 0.12 S/CO (0.00-0.79); ~Hepatitis B Surface Antibody NONREACTIVE (Nonreactive); ~Hepatitis C Antibody Nonreactive (Nonreactive)
[2024-09-21] MEDS: Clopidogrel Bisulfate 75 MG TABLET PO (08:46)
[2024-09-21] MEDS: Pregabalin 75 MG CAPSULE PO (08:46)
[2024-09-21] MEDS: Gabapentin 400 MG CAPSULE PO (08:46)
[2024-09-21] MEDS: Atorvastatin Calcium 80 MG TABLET PO (08:46)
[2024-09-21] MEDS: DULoxetine HCl 30 MG CAPSULE.DR PO (08:46)
[2024-09-21] MEDS: Potassium Chloride ER 20 MEQ TAB.ER.PRT PO (08:46)
--- NOTE | 2024-09-21 08:58 | P.PNIM_ITS ---
Subjective Subjective Date of Service: 09/21/24 Interval History: diarrhea resolved Physical Exam 2 Vital Signs: Vital Signs: Last Vital Signs Temp 98.0 F 09/21/24 07:42 Pulse 87 09/21/24 07:42 Resp 16 09/21/24 07:42 BP 129/88 09/21/24 07:42 Pulse Ox 98 09/21/24 07:42 O2 Del Method Room Air 09/21/24 07:42 BMI result Body Mass Index 20.9 General: AO X 3, no acute distress Resp: CTA bilateral, no accessory muscles used CVS: S1,S2,RRR GI: soft, non tender, non distended Neuro: motor grossly intact, alert Psych: appropriate affect, appropriate insight Objective Data Active Medications Acetaminophen (Acetaminophen 325 Mg Tablet) 650 mg PO Q6H PRN PRN Reason: Pain, Mild 1-3,fever,headache Last Admin: 09/21/24 00:01 Dose: 650 mg Documented By: EMERALD Albuterol/Ipratropium (Albuterol/Iprat 2.5/0.5mg 3 Ml Ampul.Neb) 3 ml INHALE Q4H PRN PRN Reason: Shortness of Breath/Wheezing Atorvastatin Calcium (Atorvastatin Calcium 80 Mg Tablet) 80 mg PO DAILY [facility] Last Admin: 09/21/24 08:46 Dose: 80 mg Documented By: NORAH Bacitracin (Bacitracin Oint 14 Gm Tube) 1 appl TOPICAL BID [facility]; Protocol Last Admin: 09/21/24 08:45 Dose: Not Given Documented By: NORAH Non-Admin Reason: Med Not Available Calcium Carbonate (Calcium Carbonate 750 Mg Tab.Chew) 750 mg PO Q4H PRN PRN Reason: Heartburn Clopidogrel Bisulfate (Clopidogrel Bisulfate 75 Mg Tablet) 75 mg PO DAILY [facility] Last Admin: 09/21/24 08:46 Dose: 75 mg Documented By: NORAH Dextrose (Dextrose 50 % 25 Gm/50 Ml Syringe) 25 gm IVPUSH Q15M PRN; Protocol PRN Reason: per Hypoglycemia Standing Ord. Last Admin: 09/20/24 06:09 Dose: 25 gm Documented By: JESS Duloxetine HCl (Duloxetine Hcl 30 Mg Capsule.Dr) 30 mg PO DAILY [facility] Last Admin: 09/21/24 08:46 Dose: 30 mg Documented By: NORAH Enoxaparin Sodium (Enoxaparin Sodium 40 Mg/0.4 Ml Syringe) 40 mg SUBCUT Q24H [facility] Last Admin: 09/20/24 20:23 Dose: 40 mg Documented By: CONCHIS Gabapentin (Gabapentin 400 Mg Capsule) 400 mg PO TID [facility] Last Admin: 09/21/24 08:46 Dose: 400 mg Documented By: NORAH Glucose (Glucose Gel 15 Gm Gel..Gram.) 15 gm PO Q15M PRN; Protocol PRN Reason: per Hypoglycemia Standing Ord. Insulin Human Lispro (Insulin Lispro 100 Unit/Ml 3 Ml Vial) 0 unit SUBCUT QIDACHS [facility]; Protocol Last Admin: 09/21/24 08:00 Dose: Not Given Documented By: NORAH Non-Admin Reason: No Insulin Coverage Magnesium Hydroxide (Milk Of Magnesia 30 Ml Oral.Susp) 30 ml PO DAILY PRN PRN Reason: Constipation Melatonin (Melatonin 3 Mg Tablet) 6 mg PO BEDTIME PRN PRN Reason: Insomnia Last Admin: 09/21/24 00:01 Dose: 6 mg Documented By: EMERALD Montelukast Sodium (Montelukast Sodium 10 Mg Tablet) 10 mg PO BEDTIME [facility] Last Admin: 09/20/24 20:23 Dose: 10 mg Documented By: CONCHIS Omeprazole (Omeprazole 40 Mg Capsule.) 40 mg PO BID@0630,1630 [facility] Last Admin: 09/21/24 05:49 Dose: 40 mg Documented By: EMERALD Ondansetron HCl (Ondansetron Hcl 4 Mg/2 Ml Vial) 4 mg IVPUSH Q8H PRN PRN Reason: Nausea and Vomiting Polyethylene Glycol (Polyethylene Glycol 3350 17 Gm Powd.Pack) 17 gm PO DAILY PRN PRN Reason: Constipation Potassium Chloride (Potassium Chloride Er 20 Meq Tab.Er.Prt) 20 meq PO DAILY [facility] Last Admin: 09/21/24 08:46 Dose: 20 meq Documented By: NORAH Pregabalin (Pregabalin 75 Mg Capsule) 75 mg PO BID [facility] Last Admin: 09/21/24 08:46 Dose: 75 mg Documented By: NORAH Ropinirole HCl (Ropinirole Hcl 2 Mg Tablet) 2 mg PO BEDTIME@2030 [facility] Last Admin: 09/20/24 20:23 Dose: 2 mg Documented By: CONCHIS Senna (Sennosides 8.6 Mg Tablet) 17.2 mg PO BEDTIME [facility] Last Admin: 09/20/24 20:26 Dose: Not Given Documented By: CONCHIS Non-Admin Reason: diarrhea Sodium Chloride (0.9 % Sodium Chloride Flush 3 Ml Syringe) 3 ml IVFLUSH QSHIFT [facility] Last Admin: 09/21/24 08:45 Dose: Not Given Documented By: NORAH Non-Admin Reason: Previously Administered Tobramycin Sulfate (Tobramycin Sulfate 0.3% Rina Op 5 Ml Btl) 1 drop EYE-BOTH Q4H [facility] Stop: 09/24/24 21:29 Last Admin: 09/21/24 08:45 Dose: Not Given Documented By: NORAH Non-Admin Reason: Patient Refused Labs 09/21/24 05:18 09/21/24 05:18 Labs: Laboratory Results - last 24 hr 09/20/24 09/20/24 09/20/24 10:28 11:50 16:18 MCV MCH MCHC RDW Plt Count MPV Absolute Nucleated RBC Nucleated RBC % (auto) Anion Gap 11 L Estim Creat Clear Calc 36.6 Estimated GFR 58 POC Glucose 121 H 104 Random Glucose 183 H Calcium 8.0 L Iron TIBC % Saturation Unsat Iron Binding C. difficile Tox B Gene Hep Bs Antigen Hep Bs Antibody Hep B Core Total Ab Hepatitis C Ab (EIA) 09/20/24 09/20/24 09/21/24 17:30 20:51 05:18 MCV 94.0 MCH 32.3 MCHC 34.3 RDW 14.5 Plt Count 170 MPV 10.6 Absolute Nucleated RBC 0.000 Nucleated RBC % (auto) 0.0 Anion Gap 10 L Estim Creat Clear Calc 35.0 Estimated GFR 55 POC Glucose 206 H Random Glucose 177 H Calcium 7.8 L Iron 25 L TIBC 120 L % Saturation 21 Unsat Iron Binding 95 C. difficile Tox B Gene NEGATIVE Hep Bs Antigen Negative Hep Bs Antibody NONREACTIVE Hep B Core Total Ab Nonreactive Hepatitis C Ab (EIA) Nonreactive 09/21/24 07:50 MCV MCH MCHC RDW Plt Count MPV Absolute Nucleated RBC Nucleated RBC % (auto) Anion Gap Estim Creat Clear Calc Estimated GFR POC Glucose 107 Random Glucose Calcium Iron TIBC % Saturation Unsat Iron Binding C. difficile Tox B Gene Hep Bs Antigen Hep Bs Antibody Hep B Core Total Ab Hepatitis C Ab (EIA) Microbiology Microbiology Results: Microbiology 09/19/24 18:26 Blood Culture - Preliminary Blood - Venous No growth after 24 hours. 09/19/24 18:26 Blood Culture - Preliminary Blood - Venous No growth after 24 hours. Assessment and Plan (1) Hypoglycemia: Status: Acute Plan 78F PMH DM, CAD, CKD III, chronic pancreatitis, hepatic steatosis, presented with ams found to be hypoglycemia acute metabolic encephalopathy due to DM with hypoglycemia Mental status back to baseline, sugars better contorlled Continue insulin sliding scale as also hyperglycemic at times likely only short acting insulin on discharge Acute hypomagnesemia Received replacement Moderate protein calorie malnutrition with unintentional weight loss Nutritional intake encouraged chronic pancreatitis, chronic diarrhea and steatohepatitis unclear etiology outpatient gi follow up stool studies CKD III better than baseline acute hypokalemia replace and monitor dvt prophylaxis - lovenox full code reason for continued hospitalization:pt eval Quality Stroke Does the patient have a stroke diagnosis?: No Reason for No Anti-thrombotic by Day Two: N/A - Med Ordered VTE Prior VTE?: No VTE Risk Level:: Medical - moderate - high VTE Device Contraindication: N/A - Device Ordered VTE Drug Contraindication: N/A - Med Ordered
[2024-09-21 10:27] VITALS: BP 129/88; PULSE 87; O2SAT 98
[2024-09-21 11:22] LABS: Adenovirus F 40/41 Not Detected (Not Detect.); Astrovirus Not Detected (Not Detect.); Campylobacter Not Detected (Not Detect.); Cryptosporidium Not Detected (Not Detect.); Cyclospora cayetanensis Not Detected (Not Detect.); E. coli EAEC Not Detected (Not Detect.); E. coli EPEC Not Detected (Not Detect.); E. coli ETEC Not Detected (Not Detect.); E. coli STEC Not Detected (Not Detect.); Entamoeba histolytica Not Detected (Not Detect.); Giardia lamblia Not Detected (Not Detect.); Norovirus GI/GII Not Detected (Not Detect.); Plesiomonas shigelloides Not Detected (Not Detect.); Rotavirus A Not Detected (Not Detect.); Salmonella Not Detected (Not Detect.); Sapovirus Not Detected (Not Detect.); Shigella sp./EIEC Not Detected (Not Detect.); Vibrio Not Detected (Not Detect.); Vibrio Cholerae Not Detected (Not Detect.); Yersinia enterocolitica Not Detected (Not Detect.)
[2024-09-21 11:45] LABS: Glucose, Whole Blood 133 mg/dL (60-115)
--- NOTE | 2024-09-21 12:05 | P.F2F_ITS ---
Service Date Service Date: 09/21/24 Encounter Date of encounter: 09/21/24 Reasons for Services Signs and symptoms assessed: weakness, recent recurrent hypoglycemic episodes Reason for intermediate: medication management, medication treatment and teach disease management Homebound: Leaving the home is medically contraindicated at this time without the asist of a device and/or another person due th the listed conditions above and below. Reason homebound: unsteady gait / fall risk Certification: Based on the above findings, I certify that this patient is confined to the home and needs intermittent intermediate care, physical therapy and/or speech therapy, or continues to need occupational therapy. The patient is under my care, and I have initiated the establishment of the plan of care. The patient will be followed by a physician who will periodically review the plan of care. Time Spent With Patient Time: Total time managing care of this patient today ____ minutes.
--- NOTE | 2024-09-21 12:05 | P.DS_ITS ---
DS: Providers Provider Date of Service: 09/21/24 Date of admission: 09/19/24 19:57 Date of discharge: 09/21/24 Primary care physician: Jose Diaz MD DS: Diagnosis Discharge Diagnosis (1) Hypoglycemia: Status: Acute DS: Summary Hospital Course Hospital Course: from initial hpi: 78 yo female with PMH insulin-dependent diabetes type 2 recently started back on Ozempic ThursdaySeptember 16, hypertension, GERD, HLD, CAD/ atherosclerosis of aorta, CKD stage 3, COVID, chronic calcific pancreatitis, hepatic steatosis, vertigo, neuropathy, insomnia, urinary incontinence, B knee OA with recent injections, R shoulder repair, L shoulder OA, severe degenerative disc disease L4/L5, hysterectomy, appendectomy, cholecystectomy was brought in by ambulance after being found by unresponsive. It was reported by EMS that pt was incontinent of urine and stool. Pt's own memory of events from this morning are as follows: pt's came into the bedroom in the AM. was going to [employer] and asked pt if she wanted to go. Pt declined and went back to sleep. returned and pt was awake and was feeling fine and decided to get some more sleep. When came in again, that is when pt was found unresponsive and spouse called EMS. BG 32, pt received D10 and POC then 120. Pt was alert and orientated on arrival to ED. patient refused to go to the ED from home and once in the ED initially did not want to stay. Patient is receptive to admission at this time. Pt states she has a CGM that is attached to a monitor and not her phone per her preference. Pt has a freestyle 1. Pt states the monitor does not alarm if her BG level gets too low. Pt also resumed Ozempic this past Thursday per her street light servicer helper. Pt was on Ozempic until last February when this medicaiton was stopped due to problems with her liver. MRI ABdomen from Admission in 2023 noted chronic calcific pancreatitis which may be why Ozempic was stopped. Pt is on long acting insulin 20 units mid day. Pt was on 22 units prior to starting Ozempic. Patient does check her blood sugar prior to administering long-acting insulin. Patient also make sure that she takes snack before going to bed. Our choices for snacks include tricks candy bars and high sugar items. Pt does follow an street light servicer helper, trimmer machine operator, opthalmologist. Pt denies any chronic issues with her vision. Pt is having some purulent drainage from both eyes and has an upcoming visit with keyboard specialist some time this month. Pt did have a temp of 100.4 and elevated lactate 3.5 upon arrival to ED. Elevated LA likely secondary from insult suffered due to severe hypoglycemia. Pt did receive one dose of ceftrriaxone. UA is pending. CXR negative for acute findings. As above, pt has purulent drainage from both eyes but no obvious evidence of conjunctivitis. Visual acuity is intact. Any previous issues with metabolic encephalopathy have since been resolved. Patient also has an abrasion on the bridge of her nose. Patient states she ran into the wall of the bathroom on evening of this past week. Patient denies any falls or other injuries. hospital course: Patient was admitted for acute metabolic encephalopathy due to diabetes with hypoglycemia. Sugars returned to normal and mental status returned to baseline. She is currently only on insulin sliding scale and this will continue on discharge will hold orals and Lantus, she should follow up with endocrinology for brittle diabetes. Acute hypomagnesemia was replaced. For moderate protein calorie malnutrition with unintentional weight loss nutritional intake is encouraged on she should follow up with Gastroenterology. For chronic pancreatitis and chronic steatohepatitis of unclear etiology we will follow up with GI, stool studies were negative. For CKD 3 creatinine was better than her baseline. For acute hypokalemia she received replacement. for htn, bp was low- normal and meds discontinued. patient was seen by pt, who recommended home with services. Patient is feeling better will be discharged home. Time Attestation Discharge Coordination Time (in mins): 33 Quality: Safe Use of Opioids Does Pt have an Active Cancer Diagnosis on the Problem List?: No Quality: Stroke Does the patient have a stroke diagnosis?: No Physical Exam Vital Signs: Vital Signs: Last Vital Signs Temp 98.0 F 09/21/24 07:42 Pulse 87 09/21/24 07:42 Resp 16 09/21/24 07:42 BP 129/88 09/21/24 07:42 Pulse Ox 98 09/21/24 07:42 O2 Del Method Room Air 09/21/24 07:42 BMI result Body Mass Index 20.9 General: AO X 3, no acute distress Resp: CTA bilateral, no accessory muscles used CVS: S1,S2,RRR GI: soft, non tender, non distended Neuro: motor grossly intact, alert Psych: appropriate affect, appropriate insight DS: Data Data Completed and Pending Labs on day of discharge: Laboratory Results - last 24 hr 09/20/24 09/20/24 09/20/24 16:18 17:30 20:51 WBC RBC Hgb Hct MCV MCH MCHC RDW Plt Count MPV Absolute Nucleated RBC Nucleated RBC % (auto) Sodium Potassium Chloride Carbon Dioxide Anion Gap BUN Creatinine Estim Creat Clear Calc Estimated GFR POC Glucose 104 206 H Random Glucose Calcium Iron TIBC % Saturation Unsat Iron Binding Stl C. cayetanensis PCR Not Detected Stool Rotavirus A PCR Not Detected Stl Adenov F 40/ PCR Not Detected Stool Astrovirus (PCR) Not Detected Stool Campylobacter PCR Not Detected Stool Cryptosporidium PCR Not Detected Stl Sh Tox Pr E STEC PCR Not Detected Stool E coli O157 PCR Not applicable Stl Enterotoxigenic E PCR Not Detected Stool EPEC (PCR) Not Detected Stool EAEC (PCR) Not Detected Stl E. histolytica PCR Not Detected Stool Giardia Lamblia PCR Not Detected Stl P. shigelloides PCR Not Detected Stool Salmonella PCR Not Detected Stool Sapovirus (PCR) Not Detected Stl Shigella/EIEC PCR Not Detected St Y.enterocolitica PCR Not Detected Stool Vibrio (PCR) Not Detected Stl Vibrio cholerae PCR Not Detected Stl Norovirus GI/GII PCR Not Detected C. difficile Tox B Gene NEGATIVE Hep Bs Antigen Hep Bs Antibody Hep B Core Total Ab Hepatitis C Ab (EIA) 09/21/24 09/21/24 09/21/24 05:18 07:50 11:31 WBC 7.2 RBC 2.85 L Hgb 9.2 L Hct 26.8 L MCV 94.0 MCH 32.3 MCHC 34.3 RDW 14.5 Plt Count 170 MPV 10.6 Absolute Nucleated RBC 0.000 Nucleated RBC % (auto) 0.0 Sodium 133 L Potassium 3.4 Chloride 103 Carbon Dioxide 23 Anion Gap 10 L BUN 9 Creatinine 0.98 Estim Creat Clear Calc 35.0 Estimated GFR 55 POC Glucose 107 133 H Random Glucose 177 H Calcium 7.8 L Iron 25 L TIBC 120 L % Saturation 21 Unsat Iron Binding 95 Stl C. cayetanensis PCR Stool Rotavirus A PCR Stl Adenov F 40/41 PCR Stool Astrovirus (PCR) Stool Campylobacter PCR Stool Cryptosporidium PCR Stl Sh Tox Pr E STEC PCR Stool E coli O157 PCR Stl Enterotoxigenic E PCR Stool EPEC (PCR) Stool EAEC (PCR) Stl E. histolytica PCR Stool Giardia Lamblia PCR Stl P. shigelloides PCR Stool Salmonella PCR Stool Sapovirus (PCR) Stl Shigella/EIEC PCR St Y.enterocolitica PCR Stool Vibrio (PCR) Stl Vibrio cholerae PCR Stl Norovirus GI/GII PCR C. difficile Tox B Gene Hep Bs Antigen Negative Hep Bs Antibody NONREACTIVE Hep B Core Total Ab Nonreactive Hepatitis C Ab (EIA) Nonreactive Preliminary micro results at discharge 09/19/24 18:26 Blood Culture - Preliminary Blood - Venous No growth after 24 hours. 09/19/24 18:26 Blood Culture - Preliminary Blood - Venous No growth after 24 hours. Discharge Plan Discharge Anticipated Discharge Date/Time: 09/21/24 11:59 Patient Disposition: Home Health Service Discharge Diagnosis: hypoglycemia Referrals: [facility] [Outside] - 3-5 Days (HOME SERVICES FOR CORRECTION AND PHYSICAL THERAPY- A NURSE WILL CALL YOU TO SET UP FIRST VISIT) Lamonte Cevallos MD [Physician] - 1 Week (brittle dm) Jose Diaz MD [Primary Care Provider] - 1 Week Christina Higgins MD [Physician] - 1 Week (chronic pancreatitis, steatohepaitis) Discharge Medications: New insulin lispro [Admelog U-100 Insulin lispro] 100 unit/mL Solution See Protocol subcut QIDACHS Qty: 10 0RF Protocol: Insulin Correction Scale Less than or equal to 110 ---- Give (units): 0 111 to 150 Give (units): 0 151 to 200 Give (units): 2 201 to 250 Give (units): 4 251 to 300 Give (units): 6 301 to 350 Give (units): 8 Greater than 350 Give (units): 10 Call MD if Blood Glucose > : 350 Rx Instructions: BG <111 0 units, 111-150 - 0 units, 151-200 2 units, 201-250 4 units, 251-300 6 units, 301-350 8 units, >350 10 units Continued sumatriptan succinate 100 mg tablet 100 mg PO DAILY MRX1 PRN (Reason: migraine) clopidogrel 75 mg tablet 75 mg PO DAILY omeprazole 40 mg capsule,delayed release(DR/EC) 40 mg PO BID@0630,1630 meclizine 25 mg tablet 25 mg PO QID ropinirole 2 mg tablet 2 mg PO BEDTIME@2030 montelukast 10 mg tablet 10 mg PO BEDTIME zolpidem 5 mg tablet 5 mg PO BEDTIME PRN (Reason: insomnia) rosuvastatin 40 mg tablet 40 mg PO DAILY trospium 20 mg tablet 20 mg PO BID potassium chloride 20 mEq tablet extended release 20 meq PO DAILY albuterol sulfate 90 mcg/actuation Hfa Aerosol Inhaler 2 puff INHALATION Q4H PRN (Reason: Shortness Of Breath Or Wheezing) ergocalciferol (vitamin D2) [Vitamin D2] 1,250 mcg (50,000 unit) capsule 1,250 mcg PO MOWEFR duloxetine 30 mg capsule,delayed release(DR/EC) 30 mg PO DAILY pregabalin 75 mg capsule 75 mg PO BID Gemtesa 75 mg tablet 75 mg PO DAILY gabapentin 400 mg capsule 400 mg PO TID Discontinued cefaclor 250 mg capsule 250 mg PO DAILY hydrochlorothiazide 25 mg tablet 25 mg PO DAILY atenolol 50 mg tablet 50 mg PO DAILY insulin glargine [Basaglar KwikPen U-100 Insulin] 100 unit/mL (3 mL) insulin pen 25 unit subcut DAILY Jardiance 10 mg tablet 10 mg PO DAILY valsartan 160 mg tablet 160 mg PO DAILY furosemide 40 mg tablet 40 mg PO DAILY Ozempic 0.25 mg or 0.5 mg (2 mg/3 mL) pen injector 0.5 mg subcut FR Discharge Orders: Discharge Order (Routine); Ordered 09/21/24 Ordered By: Nathanael Dee Diet: Advance to usual diet Activity on Discharge: As tolerated Stand Alone Forms: Patient Portal Discharge page Print Language: Chilean Activity Restrictions/Additional Instructions: DISCHARGE DIAGNOSES: Low glucose likely secondary to insulin and poor intake of food Care Plan Goals: manage sugars Health Concerns: low bp, low sugar Plan of Treatment: med changes as prescribed follow up with gi and endocrine, monitor sugars Assessment: see above Patient Instructions: Hypoglycemia in a Person with Diabetes (ED)
--- NOTE | 2024-09-21 12:08 | MHC.CM.PN ---
DP: PT HAS BEEN MEDICALLY CLEARED FOR DC HOME WITH NEW NA . pT IS AGREEABLE TO PLAN, JUST WANTS TO GO HOME . REFERRAL SENT TO [facility], AWAITING RESPONSE. SON WILL TRANSPORT HOME.
== END 2024-09-21 13:44 | disposition home health service (06) | DRG 637 ==
LOC: HO.ED 17:49 → HO.EDOVER 20:01 → HO.S3 09-20 07:36
PROVIDERS: Nurse Practitioner Family; Admitting Provider Student in an Organized Health Care Education/Training Program; Emergency Provider Emergency Medicine; PCP Internal Medicine; Visit Provider Internal Medicine
DX: E11.649 Type 2 diabetes mellitus with hypoglycemia without coma (principal); G93.41 Metabolic encephalopathy; E87.21 Acute metabolic acidosis; K86.1 Other chronic pancreatitis; E44.0 Moderate protein-calorie malnutrition; E11.22 Type 2 diabetes mellitus with diabetic chronic kidney disease; E11.42 Type 2 diabetes mellitus with diabetic polyneuropathy; E83.42 Hypomagnesemia; N18.30 Chronic kidney disease, stage 3 unspecified; Z68.20 Body mass index [BMI] 20.0-20.9, adult; E87.6 Hypokalemia; K52.9 Noninfective gastroenteritis and colitis, unspecified; K75.81 Nonalcoholic steatohepatitis (NASH); Z20.822 Contact with and (suspected) exposure to COVID-19; Z79.02 Long term (current) use of antithrombotics/antiplatelets; Z79.899 Other long term (current) drug therapy
CPT/HCPCS: 0241U; 36415; 71045; 74176; 80048; 80053; 81001; 82947; 83036; 83540; 83605; 83690; 83735; 84439; 84443; 85025; 85027; 86704; 86706; 86803; 87040; 87340; 87493; 87507; 93005; 97161; 99285; J0696; J1650; J3371; J3475; J3480

== ENCOUNTER → 2024-09-19 19:50 | Outpatient (BNV) | payer MEDICARE, MEDICAID, SELFPAY | PROVIDERS: Admitting Provider Student in an Organized Health Care Education/Training Program; Emergency Provider Emergency Medicine; PCP Internal Medicine; Visit Provider Radiology Diagnostic Radiology | DX: A41.9 Sepsis, unspecified organism (principal) | CPT/HCPCS: 71045 ==

== ENCOUNTER 2024-09-19 19:57 | Outpatient (BNV) | payer MEDICARE, MEDICAID, SELFPAY | END 2024-09-20 17:55 | PROVIDERS: Admitting Provider Student in an Organized Health Care Education/Training Program; Emergency Provider Emergency Medicine; PCP Internal Medicine; Visit Provider Radiology Diagnostic Radiology | DX: K86.1 Other chronic pancreatitis (principal) | CPT/HCPCS: 74176 ==

== ENCOUNTER 2024-09-19 19:57 | Outpatient (BNV) | payer MEDICARE, MEDICAID, SELFPAY | END 2024-09-19 21:46 | PROVIDERS: Admitting Provider Student in an Organized Health Care Education/Training Program; Emergency Provider Emergency Medicine; PCP Internal Medicine; Visit Provider Internal Medicine Cardiovascular Disease | DX: R94.31 Abnormal electrocardiogram [ECG] [EKG] (principal); I95.9 Hypotension, unspecified | CPT/HCPCS: 93010 ==

== ENCOUNTER → 2024-09-19 19:57 | Outpatient (BNV) | payer MEDICARE, MEDICAID, SELFPAY | PROVIDERS: Admitting Provider Student in an Organized Health Care Education/Training Program; Emergency Provider Emergency Medicine; PCP Internal Medicine; Visit Provider Nurse Practitioner Family | DX: E16.2 Hypoglycemia, unspecified (principal) | CPT/HCPCS: 99223; 99233; 99239; 99499; G0180 ==

== ENCOUNTER 2024-09-28 13:27 | Outpatient (AMB) | payer MEDICARE, MEDICAID, SELFPAY ==
--- NOTE | 2024-09-28 07:52 | A.OFFVIS_ITS ---
Vital Signs 09/28/24 13:35 Height 5 ft Weight 103 lb 9.876 oz BMI 20.2 BP 130/70 Blood Pressure Location Rt brachial Position Sitting Pulse 102 H Pulse Source Pulse Oximeter Pulse Oximetry (%) 100 Oxygen Delivery Method Room Air Intake Visit Reasons: DM Intake Note: NEW Patient presents today to establish treatment for Type 2 Diabetes Mellitus: Last Diabetic eye exam was on: DUE, as a coming up appt next week. Last Podiatry exam was on: Patient does not see a Dye Feeder Most recent HbA1c: 6.8%, 09/19/2024 Random Glucose- 219 mg/dL, Today New Media Strategist Required: No Accompanied by: Self / Same As Patient Allergies semaglutide (From Ozempic) Adverse Reaction (Severe, Verified 09/28/24 13:39) hypoglycemia HPI Comments Details: 78 YO female who is seen in consultation for T2DM as a result of an recent hospital admission for acute metabolic encephalopathy due to hypoglycemic reaction. The patient was found unresponsive at home and was transported via ambulance to the hospital. She had a blood glucose of 32. At the time she was taking both Lantus insulin and had recently restarted Ozempic 0.25 and was on jardiance for cardiac/renal purposes. Has had 5 prior episodes of hypoglycemia at night. Two very recently. She has a past medical history of CAD, atherosclerosis of aorta, CKD stage 3, COVID, chronic calcific pancreatitis, hepatic steatosis, vertigo, neuropathy, insomnia, urinary incontinence, OA knee with recent injections, R shoulder repair, L shoulder OA, severe degenerative disc disease L4/L5, hysterectomy, appendectomy, cholecystectomy MRI 02/2024 showed chronic calcific pancreatitis and chronic hepato steatosis. Initially diagnosed with T2DM at age 47 Was initially started on treatment with:metformin, glipizide, She does not have her freestyle 2 today with her. She reports that is since coming off Lantus she is needing her short-acting insulin at least several times. She has gone to over 300 twice. sugars have been at least 150 twice daily Current regimen: admelog qid with meals and at hs 151-200 2 units 201-250 4 units 251-300 6 units 300 8 units Treats lows with glucose tablets. glucagon Most recent A1C 6.8% on 09/19/24 Family history of T2DM: 2 childrens and a nephew type 2 Has eyes checked yearly, last eye exam september 2024 no retinopathy Has neuropathy, last foot exam today in the office does not see podiatry. On gabapentin, pregalapin, and duloxetine. Has nephropathy, she is not on adriana/arb. She is followed by nephrology 09/21/2024 EGFR 55 no microalbumin she was on jardiance which was stopped in hosptial Has HLD, on statin No ldl available in ehr Has CAD. Followed by cardiology [facility] Medical History (Updated 09/28/24 @ 14:36 by Mariza Lopez NP) Type 2 diabetes mellitus Urinary incontinence Chronic calcific pancreatitis Hepatic steatosis Osteoarthritis Hyperlipidemia Chronic kidney disease (CKD) stage G3a/A1, moderately decreased glomerular filtration rate (GFR) between 45-59 mL/min/1.73 square meter and albuminuria creatinine ratio less than 30 mg/g Atherosclerosis of aorta Migraine GERD (gastroesophageal reflux disease) Peripheral neuropathy Insulin dependent type 2 diabetes mellitus CAD (coronary artery disease) HTN (hypertension) Surgical History H/O: hysterectomy History of cholecystectomy History of appendectomy History of arthroplasty of right shoulder Social History Household Members: Significant Other Housing: House Do you presently have visiting nurse or other home services: Yes (meals on wheels) Patient Tobacco Use Status: Former Tobacco user Advance Directives Date on File: 02/29/24 service: No Physical Exam Vital Signs: Last Vital Signs Pulse 102 H 09/28/24 13:35 BP 130/70 09/28/24 13:35 Pulse Ox 100 09/28/24 13:35 Oxygen Delivery Method Room Air 09/28/24 13:35 BMI result Body Mass Index 20.2 Absence of Cushingoid features. Absence of acromegalic features. Neck exam reveals nl size thyroid about 15 gms. No thyroid nodules palpable. No carotid bruits present. Lungs CTA. Heart S1 S2, Reg R/R. No M/R/ G. Skin exam reveals absence of vitiligo or acanthosis nigricans. Abdominal exam reveals Soft NT/ND with NA BS. No organomegaly present. Const Other: Absence of Cushingoid features. Absence of acromegalic features. Neck exam reveals nl size thyroid about 15 gms. No thyroid nodules palpable. Heart S1 S2, Reg R/R. No M/R G. Skin exam reveals absence of vitiligo or acanthosis nigricans. no edema Visual exam of foot performed. No ulcerations or open lesions. No inter digit maceration or fissuring. No onychomycosis, no callouses. Sensation intact to monofilament exam. Vibratory sensation is normal with 128 Hz tuning fork. pulse positive distally Neck Other: . Extrem Other: Visual exam of foot performed. No ulcerations or open lesions. No onchomycosis, no callouses.Pulses 2 + distally Sensation intact to monofilament exam. Vibratory sensation sensed is intact with 128 Hz tuning fork Results Reviewed Results Reviewed: Laboratory Last Values Glucose (Clinic) 219 mg/dL (60-115) H 09/28/24 13:43 Assessment & Plan Assessment & Plan (1) Type 2 diabetes mellitus: Code(s): E11.9 - Type 2 diabetes mellitus without complications Category: Medical Plan: The patient is a type 2 diabetic with neuropathy, nephropathy with preserved e GFR followed by Nephrology, CAD followed by Cardiology with a recent hypoglycemic episode in middle of the night requiring 911 transport to the emergency room, Per the patient and her son, she has had several severe hypoglycemic episodes recently. The last 1 occurred after she had initiated Ozempic. Plan: Change to a freestyle Davina 3 sensor and reader. This is been ordered by her PCP in his coming the week of October. Her son is tech savvy and he will train her on this. They were also given the [employer] to scan for training. She will return to the office a week after she starts the sensor so that we can look at her numbers. She should not be re-initiated on a GLP 1 due to history of chronic pancreatitis. Will restart basal insulin Tresiba at 4 units. She previously was on Lantus 10 units. Lantus can often cause hypoglycemia in the middle of the night and her episodes had been severe New Admelog scale. Stop hs coverage 151-200 2 units 201-250 4 units 251-300 6 units Over 300 8 units (for supper 6 units only) At her next visit can consider reinitiating Jardiance. The patient had an opportunity to ask questions regarding treatment plan. The patient expressed understanding and agreement with the above treatment plan. The patient is aware they should contact our office by phone for worsening glucose readings or for any low blood sugars which may warrant a change in diabetes medication. Compliance is encouraged with medications and any followup testing/consults which may have been ordered. Medications: New insulin degludec (Tresiba FlexTouch U-100 insulin) 4 units (0.04 mL) subcut DAILY 3 mL 6RF 30 days glucagon 3 mg/actuation (Baqsimi) 3 mg intranasal ONCE PRN 2 ea 1RF hypoglycemia 30 days MDD 6 mg On Hold insulin lispro (Admelog U-100 Insulin lispro) BG <111 0 units, 111-150 - 0 units, 151-200 2 units, 201-250 4 units, 251-300 6 units, 301-350 8 units, >350 10 units Hold Comment: Doctor's Order See Protocol subcut QIDACHS 10 mL 0RF Patient Instructions: Check your feet daily looking for any signs of infection, drainage, redness, ulceration and seek medical attention if this occurs. Break in shoes gradually and do not wear open-toed shoes or walk stocking footed or barefooted. Always carry a sugar source Information on nasal spray given Coding Level of Care Code New Pt Level 4 (92776) Diagnoses Type 2 diabetes mellitus E11.9 Time Spent (min) 40 Comment Time spent reviewing labs/provider notes, face to face, chart doc
[2024-09-28 13:35] VITALS: BP 130/70; PULSE 102; O2SAT 100; BMI 20.2
[2024-09-28 13:48] LABS: Glucose, Whole Blood 219 mg/dL (60-115)
--- OUTSIDE RECORDS SUMMARY | 2024-09-28 15:23 | XMS_ITS | Clinical Summary ---
Author Organization [employer] [address] [place] [address] [address] [place] [address] Phone Care Team Providers Care Gravel Truck Driver Name Role Phone Unavailable Primary Care Provider [...]
== END 2024-09-28 14:31 | disposition home or self-care (01) ==
LOC: HO.ENCR 13:28
PROVIDERS: PCP Internal Medicine; Visit Provider Nurse Practitioner Adult Health
DX: E11.9 Type 2 diabetes mellitus without complications (principal)
CPT/HCPCS: 99204

== ENCOUNTER → 2024-09-28 13:27 | Outpatient (BNVA) | payer MEDICARE, MEDICAID, SELFPAY | PROVIDERS: PCP Internal Medicine; Visit Provider Nurse Practitioner Adult Health | DX: E11.9 Type 2 diabetes mellitus without complications (principal); Z79.4 Long term (current) use of insulin | CPT/HCPCS: 82947; 99202 ==

== ENCOUNTER 2024-10-26 15:18 | Outpatient (AMB) | payer MEDICARE, MEDICAID, SELFPAY ==
[2024-10-26 15:20] VITALS: BMI 21.5
--- NOTE | 2024-10-26 15:20 | A.OFFVIS_ITS ---
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 Most recent HbA1c: 6.8%, 09/19/2024 Random Glucose- 336 mg/dL, Today Net Application Support Specialist Required: No Accompanied by: Self / Same As Patient Allergies semaglutide (From Ozempic) Adverse Reaction (Severe, Verified 10/28/24 09:54) hypoglycemia HPI Comments Details: 78 YO female presenting for follow up T2DM She has a past medical history of CAD, atherosclerosis of aorta, CKD stage 3, COVID, chronic calcific pancreatitis, hepatic steatosis, vertigo, neuropathy, insomnia, urinary incontinence, OA knee with recent injections, R shoulder repair, L shoulder OA, severe degenerative disc disease L4/L5, hysterectomy, appendectomy, cholecystectomy. MRI 02/2024 showed chronic calcific pancreatitis and chronic hepato steatosis. Initially diagnosed with T2DM at age 47 Patient has managed conservatively given recent hospitalization for hypoglycemia. She has been running consistently hyperglycemic recently Was initially started on treatment with:metformin, glipizide, Current regimen: Lantus 4 units admelog qid with meals and at hs 151-200 2 units 201-250 4 units 251-300 6 units 300 8 units No recent lows Most recent A1C 6.8% on 09/19/24 Family history of T2DM: 2 childrens and a nephew type 2 Has eyes checked yearly, last eye exam september 2024 no retinopathy Has neuropathy, last foot exam today in the office does not see podiatry. On gabapentin, pregalapin, and duloxetine. Has nephropathy, she is not on adriana/arb. She is followed by nephrology Has HLD, on statin No ldl available in ehr Has CAD. Followed by cardiology ROS CONSTITUTIONAL: Denies weight loss, fever and chills. HEENT: Denies changes in vision and hearing. RESPIRATORY: Denies SOB and cough. CV: Denies palpitations and CP GI: Denies abdominal pain, nausea, vomiting and diarrhea. : Denies dysuria and urinary frequency. MSK: Denies new myalgia and joint pain. SKIN: Denies rash and pruritus. NEUROLOGICAL: Denies headache PSYCHIATRIC: Denies recent changes in mood. PHYSICAL EXAM: GENERAL: Alert and oriented x 3. NAD EYES: EOMI. Anicteric. HENT: Moist mucous membranes. No scleral icterus. No cervical lymphadenopathy. LUNGS: Clear to auscultation bilaterally. CARDIOVASCULAR: Regular rate and rhythm. No murmur. No JVD. ABDOMEN: Soft, non-tender +bs EXTREMITIES: No edema. Non-tender. SKIN: No rashes or lesions. Warm. NEUROLOGIC: No focal neurological deficits. CN II-XII grossly intact PSYCHIATRIC: Cooperative. Appropriate mood and affect [facility] Medical History (Updated 10/30/24 @ 22:12 by Polly Bell MD) Type 2 diabetes mellitus Urinary incontinence Chronic calcific pancreatitis Hepatic steatosis Osteoarthritis Hyperlipidemia Chronic kidney disease (CKD) stage G3a/A1, moderately decreased glomerular filtration rate (GFR) between 45-59 mL/min/1.73 square meter and albuminuria creatinine ratio less than 30 mg/g Atherosclerosis of aorta Migraine GERD (gastroesophageal reflux disease) Peripheral neuropathy Insulin dependent type 2 diabetes mellitus CAD (coronary artery disease) HTN (hypertension) Surgical History H/O: hysterectomy History of cholecystectomy History of appendectomy History of arthroplasty of right shoulder Social History Household Members: Spouse Housing: House Do you presently have visiting nurse or other home services: Yes Patient Tobacco Use Status: Former Tobacco user Tobacco use type: Cigarette Years Smoked: 2 Smoked in Last 30 Days: No e-Cigarette/Vaping Use: Former Use Patient Interested in Nicotine Replacement: No Patient Given Instructions on How to Stop Smoking: No Second Hand Smoke Exposure: No Use of substances other than those prescribed or required for medical reasons: No Currently Displaying Signs/Symptoms of Drug Intoxication Withdrawal: No Have you been hit, kicked, punched, or otherwise hurt by someone within the past year? If so, by whom?: No Do you feel safe in your current relationship?: Yes Is there a partner from a previous relationship who is making you feel unsafe now?: No Are you made to feel afraid or neglected: No Advance Directives: Yes Advance Directives on File: Yes Advance Directives Date on File: 02/29/24 Do you have a plan to hurt others: No Plan Recently lost weight without trying: No How much weight loss: Not applicable Eating poorly because of decreased appetite: No Nutrition screen score: 0 Nutrition Risks: No Nutritional Risk Patient : No : No Poor oral hygiene: No service: No Physical Exam Vital Signs: Oxygen Delivery Method Room Air 10/26/24 15:20 BMI result Body Mass Index 21.5 Results Reviewed Results Reviewed: Laboratory Last Values Glucose (Clinic) 336 mg/dL (60-115) H 10/26/24 15:30 Assessment & Plan Assessment & Plan (1) Type 2 diabetes mellitus: Code(s): E11.9 - Type 2 diabetes mellitus without complications Category: Medical Qualifiers: Diabetes mellitus mcc insulin use: with manager long term care use Diabetes mellitus complication status: with hypoglycemia Diabetes mellitus complication detail: without coma Qualified Code(s): E11.649 - Type 2 diabetes mellitus with hypoglycemia without coma; Z79.4 - MCFP (current) use of insulin Plan 78 yo for follow up diabetes Increase tresiba to 10 units then by 2 units every 3 days prn as high as 20 units Has CGM. Treating hypoglycemia by rules of 15s Follows up 6 weeks Medications: Changed From insulin degludec (Tresiba FlexTouch U-100 insulin) 4 units (0.04 mL) subcut DAILY 90 days 15 mL 6RF To insulin degludec 20 units (0.2 mL) subcut DAILY 90 days 18 mL 6RF Coding Level of Care Code Est Pt Level 4 (48408) Diagnoses Type 2 diabetes mellitus with hypoglycemia without coma, with long-term current use of insulin E11.649; Z79.4 Diabetes mellitus mcc insulin use: with mcc use Diabetes mellitus complication status: with hypoglycemia Diabetes mellitus complication detail: without coma
[2024-10-26 15:33] LABS: Glucose, Whole Blood 336 mg/dL (60-115)
--- OUTSIDE RECORDS SUMMARY | 2024-10-26 15:36 | XMS_ITS | Clinical Summary ---
Author Organization LL [address] [place] [address] Address [address] [place] [address] Phone Care Team Providers Care Saw Superintendent Name Role Phone Unavailable Primary Care Provider [...] Influ[facility] of Health Screening 04/29/2024 Influenza Vaccine (#1) 2024 HIB Vaccines Aged Out No longer [...]
--- OUTSIDE RECORDS SUMMARY | 2024-10-26 15:36 | XMS_ITS | Encounter Summary ---
Author Organization [facility] Address [address] [place] [address] Phone Care Team Providers Care Parts Sales Associate Name Role Phone Jose Diaz MD Primary Care Provider [phone] Encounter Details Date Type Department Care Team ([facility] Contact Info) Description 05/01/2023 Documentation Only [facility] [address] [place] [address] Momo Perez MD [address] [place] [address] [place] [address] Social History Tobacco Use Types Packs/Day Years Used Date Smoking Tobacco: Former Cigarettes Q uit: 04/13/2004 Comments:Smoking History Inf o:Every day Alcohol Use Standard Drinks/Week Comments Yes 0 (1 standard drink = 0.6 oz pure alcohol) Alcoholic Drinks/day: Occasional social drink Comments Unknown Sex and Gender Information Value Date Recorded Sex Assigned at Not on file Legal Sex Female 4:35 PM EST Gender Identity Not on file Sexual Orientation Not on file documented as of this encounter Plan of Treatment Upcoming Encounters Date Type Department Care Team (Late Contact Info) Description 02/21/2025 2:15 PM EST Office Visit [facility] [place] [facility] [address] [facility] [place] [address] Momo Perez MD [address] [place] [address] [place] [address] documented as of this encounter Visit Diagnoses Not on filedocumented in this encounter Care Teams Parts Sales Associate Relationship Specialty Start Date End Date Jose Diaz MD [employer] [address] [place] [address] [place] PCP - General 02/15/19 documented as of this encounter
== END 2024-10-26 15:51 | disposition home or self-care (01) ==
LOC: HO.ENCR 15:19
PROVIDERS: PCP Internal Medicine; Visit Provider Internal Medicine
DX: E11.649 Type 2 diabetes mellitus with hypoglycemia without coma (principal); Z79.4 Long term (current) use of insulin

== ENCOUNTER → 2024-10-26 15:18 | Outpatient (BNVA) | payer MEDICARE, MEDICAID, SELFPAY | PROVIDERS: PCP Internal Medicine; Visit Provider Internal Medicine | DX: E11.649 Type 2 diabetes mellitus with hypoglycemia without coma (principal); Z79.4 Long term (current) use of insulin | CPT/HCPCS: 82947; 99212 ==

== ENCOUNTER 2024-10-28 09:46 | Inpatient (IN) | payer MEDICARE, MEDICAID, SELFPAY ==
[2024-10-28] VITALS (21 sets, daily range): BP systolic 105–171; BP diastolic 56–93; PULSE 96–148; RESP 14–28; TEMP 36.3–37.8; O2SAT 60–98; BMI 25.6; BMI 22.9
--- NOTE | ~2024-10-28 | XR_ITS ---
EXAMINATION: XR CHEST CLINICAL INFORMATION: dyspnea COMPARISON: 09/19/2024 TECHNIQUE: Frontal view of the chest was obtained. FINDINGS: The cardiac, hilar, and mediastinal contours are normal. Lungs demonstrate patchy bibasilar opacities and mild perihilar haziness. No pneumothorax or effusion. No focal osseous or soft tissue abnormality. There has been prior right subacromial decompression. XR/XR chest 1V IMPRESSION: 1. Patchy bibasilar opacities and mild perihilar haziness, suspicious for bibasilar/multifocal pneumonia. Atypical pneumonia is also a possibility. Electronically signed by: Elliott Nolasco MD 10/28/2024 10:55 AM EDT
--- NOTE | 2024-10-28 09:53 | ECG_ITS ---
Test Reason : SOB Blood Pressure : */* mmHG Vent. Rate : 152 BPM Atrial Rate : * BPM P-R Int : * ms QRS Dur : 72 ms QT Int : 320 ms P-R-T Axes : * 68 11 degrees QTcB Int : 508 ms Sinus tachycardia Premature ventricular complexes Anteroseptal infarct (cited on or before 19-Sep-2024) Nonspecific ST and T wave abnormality Abnormal ECG When compared with ECG of 19-Sep-2024 21:46, Vent. rate has increased by 70 bpm T wave inversion now evident in Lateral leads Referred By: Basil Little Electronically Signed By: BERYL JOHNSON
--- NOTE | 2024-10-28 09:55 | ED.SOB ---
HPI - SOB/Dyspnea General Chief Complaint: Dyspnea Stated Complaint: SOB AMS Source: EMS Mode of arrival: EMS Limitations: altered mental status History of Present Illness ED Provider: HPI Narrative: EMS called in with reports of dyspneic and altered patient presenting from home history of asthma received albuterol EN route, was found to be obtunded minimally responsive at home, report that she is full code, sounds like she has had shortness of breath since yesterday. Patient is a limited historian due to medical condition. Related Data Home Medications ?Medication ?Instructions ?Recorded ?Confirmed albuterol sulfate 90 mcg/actuation 2 puff inhalation Q4H PRN 02/26/24 10/28/24 aerosol inhaler Shortness Of Breath Or Wheezing clopidogrel 75 mg tablet 75 mg PO DAILY 02/26/24 10/28/24 meclizine 25 mg tablet 25 mg PO QID 02/26/24 10/28/24 montelukast 10 mg tablet 10 mg PO BEDTIME 02/26/24 10/28/24 omeprazole 40 mg capsule,delayed 40 mg PO BID@0630,1630 02/26/24 10/28/24 release potassium chloride 20 mEq 20 meq PO DAILY 02/26/24 10/28/24 tablet,extended release ropinirole 2 mg tablet 2 mg PO BEDTIME@2030 02/26/24 10/28/24 rosuvastatin 40 mg tablet 40 mg PO BEDTIME 02/26/24 10/28/24 sumatriptan succinate 100 mg tablet 100 mg PO DAILY MRX1 PRN migraine 02/26/24 10/28/24 zolpidem 5 mg tablet 5 mg PO BEDTIME PRN insomnia 02/26/24 10/28/24 duloxetine 30 mg capsule,delayed 30 mg PO DAILY 09/19/24 10/28/24 release ergocalciferol (vitamin D2) 1,250 1,250 mcg PO MOWEFR 09/19/24 10/28/24 mcg (50,000 unit) capsule (Vitamin D2) gabapentin 400 mg capsule 400 mg PO TID 09/19/24 10/28/24 pregabalin 75 mg capsule 75 mg PO BID 09/19/24 10/28/24 vibegron 75 mg tablet (Gemtesa) 75 mg PO DAILY 09/19/24 10/28/24 glucagon 1 mg/0.2 mL subcutaneous 1 mg subcut ONCE PRN hypoglycemia 10/28/24 10/28/24 solution (Gvoke) insulin aspart U-100 100 unit/mL See Protocol subcut TIDAC 10/28/24 10/28/24 (3 mL) subcutaneous pen insulin degludec 100 unit/mL (3 10 unit subcut DAILY 10/28/24 10/28/24 mL) subcutaneous pen (Tresiba FlexTouch U-100 insulin) triamcinolone acetonide 0.1 % 1 appl topical BID PRN Skin 10/28/24 10/28/24 topical cream Inflamma Previous Rx's ?Medication ?Instructions ?Recorded empagliflozin 10 mg tablet 10 mg PO DAILY 30 days #30 tabs 10/12/24 (Jardiance) Allergies Allergy/AdvReac Type Severity Reaction Status Date / Time semaglutide (From Ozempic) AdvReac Severe hypoglycemi Verified 10/28/24 09:54 a Review of Systems Constitutional: Constitutional: Reports as per [facility] Past Medical History Medical History (Updated 10/29/24 @ 10:00 by Noah Moscoso MD) Type 2 diabetes mellitus Urinary incontinence Chronic calcific pancreatitis Hepatic steatosis Osteoarthritis Hyperlipidemia Chronic kidney disease (CKD) stage G3a/A1, moderately decreased glomerular filtration rate (GFR) between 45-59 mL/min/1.73 square meter and albuminuria creatinine ratio less than 30 mg/g Atherosclerosis of aorta Migraine GERD (gastroesophageal reflux disease) Peripheral neuropathy Insulin dependent type 2 diabetes mellitus CAD (coronary artery disease) HTN (hypertension) Surgical History H/O: hysterectomy History of cholecystectomy History of appendectomy History of arthroplasty of right shoulder Social History Social History Household Members: Spouse Housing: House Do you presently have visiting nurse or other home services: Yes Patient Tobacco Use Status: Former Tobacco user Tobacco use type: Cigarette Years Smoked: 2 Smoked in Last 30 Days: No e-Cigarette/Vaping Use: Former Use Patient Interested in Nicotine Replacement: No Patient Given Instructions on How to Stop Smoking: No Second Hand Smoke Exposure: No Use of substances other than those prescribed or required for medical reasons: No Currently Displaying Signs/Symptoms of Drug Intoxication Withdrawal: No Have you been hit, kicked, punched, or otherwise hurt by someone within the past year? If so, by whom?: No Do you feel safe in your current relationship?: Yes Is there a partner from a previous relationship who is making you feel unsafe now?: No Are you made to feel afraid or neglected: No Advance Directives: Yes Advance Directives on File: Yes Advance Directives Date on File: 02/29/24 Do you have a plan to hurt others: No Plan Recently lost weight without trying: No How much weight loss: Not applicable Eating poorly because of decreased appetite: No Nutrition screen score: 0 Nutrition Risks: No Nutritional Risk Patient : No : No Poor oral hygiene: No service: No Physical Exam Vital Signs: Vital Signs: Last Vital Signs Temp 98.3 F 10/29/24 08:00 Pulse 121 H 10/29/24 11:13 Resp 16 10/29/24 11:13 BP 152/86 H 10/29/24 10:00 Pulse Ox 100 10/29/24 10:00 O2 Del Method Nasal Cannula 10/29/24 10:00 O2 Flow Rate 1.5 10/29/24 10:00 Oxygen Flow Rate 15 10/28/24 09:48 BMI result Body Mass Index 25.6 Const: Other: Gen: ?Dyspneic, lethargic HEENT: Pupils reactive Neck: Supple, JVD present CV: Tachycardic and regular Resp: ?Not moving air well Abd: ?No bowel distention, bowel sounds present, scar from prior surgery MSK: No lower extremity edema noted Skin: Warm, dry, intact, Neuro: ?Unresponsive Medications Administered Generic Name Dose Route Start Last Admin Trade Name Freq PRN Reason Stop Dose Admin Acetaminophen 650 mg 10/28/24 17:53 10/28/24 18:29 Acetaminophen 325 Mg Tablet PO 650 mg Q6H PRN Administration Headache, Fever, Pain Atorvastatin Calcium 80 mg 10/28/24 20:45 10/29/24 07:55 Atorvastatin Calcium 80 Mg Tablet PO 80 mg DAILY JENIFFER Administration Diltiazem HCl 120 mg 10/29/24 10:10 10/29/24 11:27 Diltiazem Hcl Cd 120 Mg Cap.Er.Deg PO 120 mg DAILY JENIFFER Administration Protocol Duloxetine HCl 30 mg 10/29/24 09:00 10/29/24 07:55 Duloxetine Hcl 30 Mg Capsule. PO 30 mg DAILY JENIFFER Administration Furosemide 20 mg 10/29/24 10:20 10/29/24 10:53 Furosemide 20 Mg/2 Ml Vial IVPUSH 20 mg DAILY JENIFFER Administration Protocol Heparin Sodium (Porcine) 5,000 unit 10/28/24 11:30 10/29/24 12:12 Heparin Sodium,Porcine 5,000 Unit/Ml Vial SUBCUT 5,000 unit Q8H JENIFFER Administration Insulin Human Lispro 0 unit 10/28/24 16:30 10/29/24 12:12 Insulin Lispro 100 Unit/Ml 3 Ml Vial SUBCUT 2 unit QIDACHS JENIFFER Administration Protocol Ipratropium [place] 0.5 mg 10/29/24 12:00 10/29/24 11:12 Ipratropium [place] 0.5 Mg/2.5 Ml Solution INHALE 0.5 mg RQ4H WHILE AWAKE JENIFFER Administration Montelukast Sodium 10 mg 10/28/24 21:00 10/28/24 20:58 Montelukast Sodium 10 Mg Tablet PO 10 mg BEDTIME JENIFFER Administration Omeprazole 40 mg 10/29/24 06:30 10/29/24 05:39 Omeprazole 40 Mg Capsule. PO 40 mg BID@0630,1630 JENIFFER Administration Sumatriptan Succinate 100 mg 10/28/24 20:25 10/28/24 20:59 Sumatriptan Succinate 100 Mg Tablet PO 100 mg DAILY MRX1 PRN Administration migraine Zolpidem Tartrate 5 mg 10/28/24 20:25 10/28/24 22:27 Zolpidem Tartrate 5 Mg Tablet PO 5 mg BEDTIME PRN Administration Insomnia Discontinued Medications Generic Name Dose Route Start Last Admin Trade Name Freq PRN Reason Stop Dose Admin Furosemide 60 mg 10/28/24 09:55 10/28/24 10:05 Furosemide 100 Mg/10 Ml Vial IVPUSH 10/28/24 09:56 60 mg ONCE ONE Administration Protocol Nitroglycerin/Dextrose 100 mg in 250 mls @ 0 mls/hr 10/28/24 10:00 10/28/24 13:35 Nitroglycerin/D5w IVCONT Infused .Q0M JENIFFER Titration Protocol Per Protocol Piperacillin Sod/Tazobactam 50 mls @ 100 mls/hr 10/28/24 11:07 10/28/24 12:18 Sod 3.375 gm/ Sodium Chloride IV 10/28/24 11:36 Infused ONCE ONE Infusion Vancomycin HCl 1,250 mg/ 250 mls @ 166.667 mls/hr 10/28/24 12:00 10/28/24 15:34 Sodium Chloride IV 10/28/24 13:29 Infused ONCE ONE Infusion Magnesium Sulfate 2 gm in 50 mls @ 25 mls/hr 10/29/24 10:17 10/29/24 12:59 Magnesium Sulfate/H2o IV 10/29/24 12:16 Infused ONCE ONE Infusion Potassium Chloride 40 meq 10/29/24 06:17 10/29/24 06:29 Potassium Chloride Er 20 Meq Tab.Er.Prt PO 10/29/24 06:18 40 meq ONCE ONE Administration Potassium Chloride 60 meq 10/29/24 10:17 10/29/24 11:09 Potassium Chloride Packet 20 Meq Packet PO 10/29/24 10:18 Not Given ONCE ONE Potassium Chloride 40 meq 10/29/24 11:11 10/29/24 11:27 Potassium Chloride Er 20 Meq Tab.Er.Prt PO 10/29/24 11:12 40 meq ONCE ONE Administration Medical Decision Making Medical Decision Making MDM Narrative: Patient presented lethargic, dyspneic, with initial consideration for COPD exacerbation, bedside ultrasound however revealed decreased cardiac squeeze, pulmonary edema, she is hypertensive my assessment is consistent with flash pulmonary edema, held off on further albuterol, we will start a nitro drip and get her after load decreased, she is actually responding to BiPAP within 10 minutes of being on BiPAP she started open her eyes and nodding initially she presented completely lethargic so at least at this time I do not feel that we are going to need to intubate her, COPD, pneumothorax ACS, all considerations as well, ECG without underlying STEMI, 10:40 mentation continues to improve, systolic under 130, I also obtained additional hx from , he did tell me that yesterday they actually went to see her doctor and she was doing well and then he on her in the morning being completely unresponsive. 1116: Patient admitted to ICU, per request of consulted cardiology 1124: Patient does not meet severe septic criteria based on leukocytosis, respiratory failure, she did receive broad-spectrum antibiotics for respiratory coverage, but because she presented with evidence of fluid overload I am withholding 30 cc/kilos IV fluids, clinically patient is improving. Differential Diagnosis Differential Diagnoses: The differential diagnosis associated with the presentation includes CHF, COPD exacerbation, pneumonia, pneumothorax, ACS, PE, Admission/Observation Consideration of admission/observation: Escalation of care including admission/observation considered 2022 Emergency Medicine Coding Guide from [employer] on 10/28/2024 All calculations should be rechecked by clinician prior to use RESULT SUMMARY: 5 Estimated Level of Service Problems: High (5) Risk: High (5) Data: Extensive (5) NARRATIVE MDM: This patient's problem complexity is High as patient: with chronic illness(es) with severe exacerbation/progression/side effects. This patient's risk is High due to: overall presentation requiring evaluation for a potentially High-risk process. This patient's data complexity is Extensive due to: -multiple tests ordered/reviewed -external notes reviewed -independent interpretation of imaging or EKG -discussion of management/testing with external professional INPUTS: Number and Complexity ?> 1 = 5: chronic illness w/severe exacerbation (a) Risk level ?> 4 = High Tests ordered ?> 3 = =3 Tests results reviewed (excluding labs) ?> 3 = =3 Prior external notes reviewed ?> 3 = =3 Assessment requiring and independent historian ?> 0 = No Independent interpretation of tests ?> 1 = Yes Discussed management/test interpretation w/external professional ?> 1 = Yes Consult Healthcare Provider Management of the patient was discussed with: Unhairing Machine Operator (ICU) Lab Data MDM Lab Attestation statement: I reviewed the patient's lab results. 10/29/24 05:20 10/29/24 05:20 Labs: Lab Results 10/28/24 10/28/24 10/28/24 Range/Units 10:00 10:05 10:09 WBC 22.0 H (4.8-10.8) X10*3/uL RBC 3.45 L D (4.20-5.50) X10*6/uL Hgb 10.0 L (12.0-16.0) g/dl Hct 32.7 L D (37.0-47.0) % MCV 94.8 (80.0-98.0) fL MCH 29.0 (27.0-33.0) pg MCHC 30.6 L (31.0-35.0) g/dl RDW 14.6 (11.0-16.0) % Plt Count 483 H D (160-400) X10*3/uL MPV 11.2 (9.4-12.3) fL Immature Gran % (Auto) 0.8 H (0.0-0.4) % Neut % (Auto) 53.4 (45-73) % Lymph % (Auto) 34.1 (20-40) % [place] % (Auto) 8.1 (2-11) % Eos % (Auto) 2.9 (0-4) % Baso % (Auto) 0.7 (0-2) % Lymph # (Auto) 7.5 H (1.2-4.9) X10*3/uL [place] # (Auto) 1.8 H (0.1-1.2) X10*3/uL Eos # (Auto) 0.6 H (0.0-0.4) X10*3/uL Baso # (Auto) 0.2 (0.0-0.2) X10*3/uL Abs Immat Gran (auto) 0.18 H (0.00-0.03) X10*3/uL Absolute Neuts (auto) 11.7 H (2.0-8.3) x10*3/uL Absolute Nucleated RBC 0.020 H (0.0-0.012) X10*3/uL Nucleated RBC % (auto) 0.1 (0.0-0.2) /100WBC VBG pH 7.11 L* (7.32-7.43) VBG pCO2 50 mmHg VBG pO2 99 mmHg VBG HCO3 16 L (22-26) mmol/L VBG O2 Saturation 94.0 % VBG Base Excess -12.6 mmol/L Sodium 138 (135-145) mmol/L Potassium 4.1 D (3.3-5.1) mmol/L Chloride 109 H (96-108) mmol/L Carbon Dioxide 15 L (22-29) mmol/L Anion Gap 18 (12-20) BUN 21 H (9-16) mg/dL Creatinine 1.26 (0.5-1.4) mg/dL Estim Creat Clear Calc 33.2 Estimated GFR 41 POC Glucose (60-115) mg/dL Random Glucose 407 H* (60-115) mg/dL Lactic Acid 6.9 H* (0.5-2.0) mmol/L Calcium 8.8 D (8.4-10.2) mg/dL Total Bilirubin 0.3 (0.0-1.0) mg/dL Direct Bilirubin 0.1 (0.0-0.5) mg/dL AST 59 H (5-31) U/L ALT 26 (0-31) U/L Alkaline Phosphatase 147 H (39-117) U/L Troponin I High Sens 35.4 H (<3.5-17.0) ng/L B-Natriuretic Peptide 1616 H (<100) pg/mL Total Protein 6.9 (6.5-8.0) g/dL Albumin 4.1 (3.5-5.0) g/dL Beta-Hydroxybutyrate 0.12 (0.02-0.27) mmol/L Urine Color Urine Appearance Urine pH (5.0-9.0) Ur Specific Mark Center (1.005-1.025) Urine Protein (Neg-Trace) mg/dL Urine Glucose (UA) (Negative) mg/dL Urine Ketones (Negative) mg/dL Urine Blood (Negative) Urine Nitrite (Negative) Ur Leukocyte Esterase (Negative) Urine RBC (0-2) /HPF Urine WBC (0-5) /HPF Ur Squamous Epith Cells (0-2) /HPF Urine Bacteria (None Seen) Hyaline Casts (0-2) /LPF 10/28/24 10/28/24 Range/Units 10:13 10:33 WBC (4.8-10.8) X10*3/uL RBC (4.20-5.50) X10*6/uL Hgb (12.0-16.0) g/dl Hct (37.0-47.0) % MCV (80.0-98.0) fL MCH (27.0-33.0) pg MCHC (31.0-35.0) g/dl RDW (11.0-16.0) % Plt Count (160-400) X10*3/uL MPV (9.4-12.3) fL Immature Gran % (Auto) (0.0-0.4) % Neut % (Auto) (45-73) % Lymph % (Auto) (20-40) % [place] % (Auto) (2-11) % Eos % (Auto) (0-4) % Baso % (Auto) (0-2) % Lymph # (Auto) (1.2-4.9) X10*3/uL [place] # (Auto) (0.1-1.2) X10*3/uL Eos # (Auto) (0.0-0.4) X10*3/uL Baso # (Auto) (0.0-0.2) X10*3/uL Abs Immat Gran (auto) (0.00-0.03) X10*3/uL Absolute Neuts (auto) (2.0-8.3) x10*3/uL Absolute Nucleated RBC (0.0-0.012) X10*3/uL Nucleated RBC % (auto) (0.0-0.2) /100WBC VBG pH (7.32-7.43) VBG pCO2 mmHg VBG pO2 mmHg VBG HCO3 (22-26) mmol/L VBG O2 Saturation % VBG Base Excess mmol/L Sodium (135-145) mmol/L Potassium (3.3-5.1) mmol/L Chloride (96-108) mmol/L Carbon Dioxide (22-29) mmol/L Anion Gap (12-20) BUN (9-16) mg/dL Creatinine (0.5-1.4) mg/dL Estim Creat Clear Calc Estimated GFR POC Glucose 361 H* (60-115) mg/dL Random Glucose (60-115) mg/dL Lactic Acid (0.5-2.0) mmol/L Calcium (8.4-10.2) mg/dL Total Bilirubin (0.0-1.0) mg/dL Direct Bilirubin (0.0-0.5) mg/dL AST (5-31) U/L ALT (0-31) U/L Alkaline Phosphatase (39-117) U/L Troponin I High Sens (<3.5-17.0) ng/L B-Natriuretic Peptide (<100) pg/mL Total Protein (6.5-8.0) g/dL Albumin (3.5-5.0) g/dL Beta-Hydroxybutyrate (0.02-0.27) mmol/L Urine Color Yellow Urine Appearance Clear Urine pH 5.5 (5.0-9.0) Ur Specific Mark Center 1.015 (1.005-1.025) Urine Protein 100 (2+) H (Neg-Trace) mg/dL Urine Glucose (UA) >=1000 H (Negative) mg/dL Urine Ketones Negative (Negative) mg/dL Urine Blood Negative (Negative) Urine Nitrite Negative (Negative) Ur Leukocyte Esterase Negative (Negative) Urine RBC 0-2 (0-2) /HPF Urine WBC 0-5 (0-5) /HPF Ur Squamous Epith Cells 0-2 (0-2) /HPF Urine Bacteria None Seen (None Seen) Hyaline Casts 0-2 (0-2) /LPF ABG Data Attestation ABG: I personally reviewed and interpreted this ABG as follows: Independent Interpretation I performed an independent interpretation of an: EKG (152 sinus tachycardia, no ST elevations to suspect STEMI, rate related ST depression in V5 and V6) and Plain X-Ray (No consolidations, vascular congestion) Critical Care Time Critical Care Time Total Critical Care Time: 60 Attestation: Time is exclusive of separately billable procedures. Time includes: direct patient care, patient reassessment, coordination of patient care, interpretation of data (laboratory data, pulse oximetry, arterial blood gases and chest xrays), review of patient's medical records, medical consultation and documentation of patient care. Procedures excluded from critical care time: central intravenous line placement and electrocardiography. Discharge Plan Discharge Clinical Impression: Flash pulmonary edema, Hypertensive emergency Hypoxic respiratory failure Qualifiers: Chronicity: acute Qualified Code(s): J96.01 - Acute respiratory failure with hypoxia Patient Disposition: Admitted As Inpatient Interventions: Admission Worksheet (ED) Last Done: 10/28/24 12:59 Discharge Date/Time: 10/28/24 13:00
[2024-10-28] MEDS: Furosemide 100 MG/10 ML VIAL 60 MG IVPUSH (10:05)
[2024-10-28 10:11] LABS: MANUAL DIFF FLAG NO
[2024-10-28] MEDS: Nitroglycerin/D5W 100 MG/250 ML INFUS..BTL IVCONT (10:13)
[2024-10-28 10:15] LABS: VBG HCO3 16 mmol/L (22-26); VBG O2 % Saturation 94.0 %
[2024-10-28 10:16] LABS: Hematocrit 32.7 % (37.0-47.0); Hemoglobin 10.0 g/dl (12.0-16.0); Imm Gran Abs Auto 0.18 X10*3/uL (0.00-0.03); Imm Gran Pct Auto 0.8 % (0.0-0.4); Mean Corpuscular HGB Conc 30.6 g/dl (31.0-35.0); Mean Corpuscular Hemoglobin 29.0 pg (27.0-33.0); Mean Corpuscular Volume 94.8 fL (80.0-98.0); NRBC Abs Auto 0.020 X10*3/uL (0.0-0.012); NRBC Pct Auto 0.1 /100WBC (0.0-0.2); Platelet Count 483 X10*3/uL (160-400); Red Blood Count 3.45 X10*6/uL (4.20-5.50); SCAN SMEAR FLAG 1; White Blood Count 22.0 X10*3/uL (4.8-10.8)
[2024-10-28 10:18] LABS: Lymphocytes Absolute Auto 7.5 X10*3/uL (1.2-4.9)
[2024-10-28 10:24] LABS: Venous Blood Gas Refer to POC result
[2024-10-28 10:28] LABS: Glucose, Whole Blood 361 mg/dL (60-115)
[2024-10-28 10:35] LABS: Anion Gap 18 (12-20); Blood Urea Nitrogen 21 mg/dL (9-16); Calcium 8.8 mg/dL (8.4-10.2); Carbon Dioxide 15 mmol/L (22-29); Chloride 109 mmol/L (96-108); Creatinine Clr Calc Pharmacy 33.2; Estimated Glomerular Filt Rate 41; Potassium 4.1 mmol/L (3.3-5.1); Sodium 138 mmol/L (135-145)
[2024-10-28 10:38] LABS: B Type Natriuretic Peptide 1616 pg/mL (<100)
[2024-10-28 10:39] LABS: Troponin-I High Sensitivity 35.4 ng/L (<3.5-17.0)
[2024-10-28 10:41] LABS: Appearance Urine Clear; Glucose Urine UA >=1000 mg/dL (Negative); PH 5.5 (5.0-9.0); Specific Gravity - Urine 1.015 (1.005-1.025); UMIC TRIGGER UACC YES
--- OUTSIDE RECORDS SUMMARY | 2024-10-28 11:23 | XMS_ITS | Clinical Summary ---
Author Organization LL [address] [place] [address] Address [address] [place] [address] Phone Care Team Providers Care Environmental Program Manager Name Role Phone Unavailable Primary Care Provider [...]
--- OUTSIDE RECORDS SUMMARY | 2024-10-28 11:23 | XMS_ITS | Encounter Summary ---
Author Organization [facility] Address [address] [place] [address] Phone Care Team Providers Care Corrosion Control Fitter Name Role Phone Jose Diaz MD Primary Care Provider Encounter Details Date Type Department Care Team ([facility] Contact Info) Description 05/01/2023 Documentation Only [facility] [address] [place] [address] Momo Perez MD [address] [place] [address] [place] [address] Social History Tobacco Use Types [...] Visit [facility] [address] [place] [address] Momo Perez MD [address] [place] [address] [place] [address] documented as of this encounter Visit Diagnoses Not on filedocumented in this encounter Care Teams Corrosion Control Fitter Relationship Specialty Start Date End Date Jose Diaz MD [employer] [address] [place] [address] DC PCP - General 02/15/19 documented as of this encounter
--- NOTE | 2024-10-28 11:39 | PC.NURSE ---
assumed care of patient from ED RN. Patient arrived to ICU. RT, this RN and CCT at bedside. trialed off Bipap and placed on 3 L nasal cannula. Patient tolerated off bipap with no distress titrated Nasal Cannula to 3 liters, then 1.5 liters. Patient titrated off Nitro gtt. See MAR for all medication and titrations Then hernandez care and CHG bedbath done in late afternoon. In early evening patient resumed PO fluids and MD ordered diet. Also Complains of 8/10 headache. MD stated give tylenol. See MAR. at 1545 on 10/28/24 patient remains awake, oriented, in no apparent distress. see head to toe for full assessment. see skin note by this RN for wounds present on admission.
--- NOTE | 2024-10-28 12:00 | CA_ITS ---
Transthoracic Echocardiogram Patient (Last, First, Middle): Sp Ornelas M Gender: Female Date of : 1945 Age: 78 Procedure Date: 10/28/2024 Procedure Type: Transthoracic Echocardiogram Location: ICU Height: 157.48 cm Weight: 63.5 kg BSA: 1.64 m2 Heart Rate: 105 bpm BP: 105 / 56 mmHg Distillery Laborer: LENIN Referring MD: Walter Mittal MD Symptoms: Dyspnea Study Quality: Technically Difficult w/Contrast ECG Rhythm: Sinus tachycardia Conclusions: - The left ventricular systolic function is mildly decreased. The visually estimated ejection fraction is between 40-45%. - The inferoseptal wall and basal anteroseptal segment are akinetic. However, difficult to assess wall motion. - No obvious valvular pathology seen on this study. Findings Procedure Information Contrast agent, definity, is being given per protocol without apparent complications. The quality of the study was technically difficult. The study quality is limited by patients body habitus. Left Ventricle Normal left ventricular cavity size. The left ventricular systolic function is mildly decreased. The visually estimated ejection fraction is between 40 45%. Diastolic function is indeterminate on the basis of available data. There is mild septal and mild basal asymmetric hypertrophy. Wall Motion Rest Echo Findings The inferoseptal wall and basal anteroseptal segment are akinetic. Right Ventricle Normal right ventricular cavity size. There is mildly decreased right ventricular systolic function. Atria Both atria are normal in size. Aortic Valve There is mild calcification of the aortic valve. There is no aortic valve stenosis. There is no aortic valve regurgitation. Mitral Valve The mitral valve appears normal. There is no mitral valve regurgitation. There is no mitral valve stenosis. Pulmonic Valve The pulmonic valve is likely normal. Tricuspid Valve There is trace tricuspid valve regurgitation. There is no evidence of pulmonary hypertension. Great Vessels The asc aorta is normal in size. Venous The inferior vena cava is normal in size and collapses greater than 50% with inspiration. Pericardium/Pleural There is a small loculated pericardial effusion overlying the right ventricle. Prior Study Comparison No prior study available for comparison. Recommendations, Care & Conclusions No obvious valvular pathology seen on this study. Measurements 2D Linear Measurements IVSd: 0.94 0.6-0.9/0.6-1.0 cm LVIDd: 3.66 3.9-5.3/4.2-5.9 cm LVIDd Index: 2.23 2.4-3.2/2.2-3.1 cm/m2 LVIDs: 3.32 2.0-3.6 cm LVPWd: 0.98 0.7-1.1 cm LA Diam: 3.50 2.7-3.8/3.0-4.0 cm LAIDs Index: 2.13 1.5-2.3 cm/m2 LV Mass: 129.70 67-162/88-224 g LV Mass Index: 79.09 43-95/49-115 g/m2 LVOT Diam: 2.00 3.0+(-)1.3 cm 2D Systolic Function EF 4C: 27.00 >55% EF 2C: 65.10 >55% EF BiP: 45.50 >55% Mitral Valve E'Lateral: 4.90 E'Medial: 3.92 Aortic Valve AoV Pk Zaki: 1.20 AoV Mn Zaki: 0.87 AoV VTI: 0.22 AoV Pk Grad: 6.00 Aov Mn Grad: 3.00 LEYLA Cont.VTI: 2.38 LVOT LVOT Pk Zaki: 1.05 LVOT Mn Zaki: 0.74 LVOT VTI: 0.17 LVOT Pk Grad: 4.00 LVOT Mn Grad: 3.00 LVOT Diam: 2.00 LVOT Area: 3.14 Diastolic Function E'Medial: 3.92 E' Laterial: 4.90 Right Ventricle TAPSE (mm): 10.40 TVS' Zaki: 10.40 Tricuspid Valve TR Pk Zaki: 2.04 TR Pk Grad: 17.00 RA Press: 3.00 RVSP: 20.00 Great Vessels Aorta Sinus of Valsalva: 3.20 2.0-3.5 cm Ao Asc: 3.40 2.1-3.4 cm Ao Arch: 3.10 Pulmonary Valve PV Pk Zaki: 0.94 Peak PV Grad: 4.00 Updated in Other Vendor System with Status of Final Noah Moscoso MD electronically signed on 10/28/2024 3:34:10 PM with status of Final
[2024-10-28 12:10] LABS: Alanine Aminotransferase 26 U/L (0-31); Albumin Level 4.1 g/dL (3.5-5.0); Alkaline Phosphatase 147 U/L (39-117); Aspartate Amino Transferase 59 U/L (5-31); Total Protein 6.9 g/dL (6.5-8.0)
[2024-10-28 12:37] LABS: Reflex Lactate? Lactic Acid Added
--- NOTE | 2024-10-28 13:04 | PC.RT ---
Pt trans to ICU, transitioned to 2 lpm Liang. Bipap on standby, nurse aware.
[2024-10-28 13:40] LABS: ~Lactic Acid-LAB USE ONLY 2.2 mmol/L (0.5-2.0)
--- NOTE | 2024-10-28 14:05 | PHA.MEDREC ---
Addendum entered by Mona Sharp [facility] 10/28/24 15:02: Reviewed by [facility]. Original Note: Pharmacy Consult ? Medication Reconciliation Pharmacy has completed the medication reconciliation. Spoke with pt and family at bedside, pt was able to confirm her medications. Family confirmed pt was just seen by Endocrinology 10/27 and they state her Tresiba changed; pt now taking 10 units now and states if her sugars are high (pt didn't specify a number and family now sure what it should be) pt will inject 2 extra units and re-tests every 3 days up until she reaches a total of 20 units or her sugars start going down.
[2024-10-28 15:16] LABS: Reflex Lactate? 2 Y
--- NOTE | 2024-10-28 15:30 | PM.CCHP ---
History of Present Illness Date of Service: 10/28/24 Chief Complaint: Respiratory distress 78-year-old lady with underlying diabetes mellitus, hypertension, CAD, CKD stage 3, chronic pancreatitis, presented with mass with acute respiratory distress and confusion. On initial ER evaluation patient with significant pulmonary edema requiring noninvasive positive pressure ventilatory support started diuretic nitro drip. Also noted to metabolic lactic acidosis with no serum ketones, no significant troponin elevation, no evidence of ischemic hepatitis, but increasing creatinine and brain natriuretic peptide. Patient admitted to intensive came in for close monitoring. Review of Systems Constitutional: Constitutional: Denies daytime sleepiness, Denies excessive sweating, Denies fatigue, Denies fever(s), Denies lethargy, Denies malaise, Denies night sweats, Denies snoring and Denies weight loss Eyes: Eyes: Denies blurry vision and Denies itchy eyes ENT: Denies nasal congestion, Denies post nasal drip, Denies sinus pain, Denies sinus pressure and Denies other ( Thrush) Cardiovascular: Cardiovascular: Denies chest pain, Denies pedal edema, Reports dyspnea, Reports dyspnea on exertion, Reports orthopnea and Reports paroxysmal nocturnal dyspnea Respiratory: Respiratory: Denies cough, Denies hemoptysis, Denies excessive phlegm production, Reports dyspnea, Reports dyspnea on exertion, Denies snoring and Denies wheezing Gastrointestinal: Gastrointestinal: Denies abdominal pain and Denies heartburn Musculoskeletal: Musculoskeletal: Denies myalgias, Denies arthralgias and Denies joint swelling Integumentary/Breasts: Skin/Breast: Denies rash Neurologic: Denies memory loss and Denies seizure-like activity Psychiatric: Psychiatric: Denies abnormal sleep pattern, Denies anxiety and Denies memory loss Endocrine: Endocrine: Denies excessive sweating, Denies fatigue and Denies heat intolerance Hematologic/Lymphatic: Hematologic/Lymphatic: Denies easy bruising Allergic/Immunologic: Allergic/Immunologic: Denies itchy eyes, Denies seasonal rhinorrhea and Denies wheezing PMFSH Past Medical History Medical History (Updated 10/28/24 @ 15:38 by Walter Mittal MD) Type 2 diabetes mellitus Urinary incontinence Chronic calcific pancreatitis Hepatic steatosis Osteoarthritis Hyperlipidemia Chronic kidney disease (CKD) stage G3a/A1, moderately decreased glomerular filtration rate (GFR) between 45-59 mL/min/1.73 square meter and albuminuria creatinine ratio less than 30 mg/g Atherosclerosis of aorta Migraine GERD (gastroesophageal reflux disease) Peripheral neuropathy Insulin dependent type 2 diabetes mellitus CAD (coronary artery disease) HTN (hypertension) Surgical History Surgical History H/O: hysterectomy History of cholecystectomy History of appendectomy History of arthroplasty of right shoulder Social History Social History Household Members: Spouse Housing: House Do you presently have visiting nurse or other home services: Yes Patient Tobacco Use Status: Former Tobacco user Tobacco use type: Cigarette Years Smoked: 2 Smoked in Last 30 Days: No e-Cigarette/Vaping Use: Former Use Patient Interested in Nicotine Replacement: No Patient Given Instructions on How to Stop Smoking: No Second Hand Smoke Exposure: No Use of substances other than those prescribed or required for medical reasons: No Have you been hit, kicked, punched, or otherwise hurt by someone within the past year? If so, by whom?: No Do you feel safe in your current relationship?: Yes Is there a partner from a previous relationship who is making you feel unsafe now?: No Are you made to feel afraid or neglected: No Advance Directives: Yes Advance Directives on File: Yes Advance Directives Date on File: 02/29/24 Do you have a plan to hurt others: No Plan Recently lost weight without trying: No How much weight loss: Not applicable Eating poorly because of decreased appetite: No Nutrition screen score: 0 Nutrition Risks: No Nutritional Risk Patient : No : No Poor oral hygiene: No service: No Meds Allergies Allergy/AdvReac Type Severity Reaction Status Date / Time semaglutide (From Ozempic) AdvReac Severe hypoglycemi Verified 10/28/24 09:54 a Active Medications: Current Medications Heparin Sodium (Porcine) (Heparin Sodium,Porcine 5,000 Unit/Ml Vial) 5,000 unit SUBCUT Q8H JENIFFER Last Admin: 10/28/24 12:03 Dose: 5,000 unit Home Medications ?Medication ?Instructions ?Recorded ?Confirmed ?Last Taken ?Type albuterol sulfate 90 mcg/actuation 2 puff inhalation Q4H PRN 02/26/24 10/28/24 Unknown History aerosol inhaler Shortness Of Breath Or Wheezing clopidogrel 75 mg tablet 75 mg PO DAILY 02/26/24 10/28/24 1 Day Ago History ~10/27/24 meclizine 25 mg tablet 25 mg PO QID 02/26/24 10/28/24 1 Day Ago History ~10/27/24 montelukast 10 mg tablet 10 mg PO BEDTIME 02/26/24 10/28/24 1 Day Ago History ~10/27/24 omeprazole 40 mg capsule,delayed 40 mg PO BID@0630,1630 02/26/24 10/28/24 1 Day Ago History release ~10/27/24 potassium chloride 20 mEq 20 meq PO DAILY 02/26/24 10/28/24 1 Day Ago History tablet,extended release ~10/27/24 ropinirole 2 mg tablet 2 mg PO BEDTIME@2030 02/26/24 10/28/24 1 Day Ago History ~10/27/24 rosuvastatin 40 mg tablet 40 mg PO BEDTIME 02/26/24 10/28/24 1 Day Ago History ~10/27/24 sumatriptan succinate 100 mg tablet 100 mg PO DAILY MRX1 PRN migraine 02/26/24 10/28/24 Unknown History zolpidem 5 mg tablet 5 mg PO BEDTIME PRN insomnia 02/26/24 10/28/24 Unknown History duloxetine 30 mg capsule,delayed 30 mg PO DAILY 09/19/24 10/28/24 1 Day Ago History release ~10/27/24 ergocalciferol (vitamin D2) 1,250 1,250 mcg PO MOWEFR 09/19/24 10/28/24 10/26/24 History mcg (50,000 unit) capsule (Vitamin D2) gabapentin 400 mg capsule 400 mg PO TID 09/19/24 10/28/24 1 Day Ago History ~10/27/24 pregabalin 75 mg capsule 75 mg PO BID 09/19/24 10/28/24 1 Day Ago History ~10/27/24 vibegron 75 mg tablet (Gemtesa) 75 mg PO DAILY 09/19/24 10/28/24 1 Day Ago History ~10/27/24 glucagon 1 mg/0.2 mL subcutaneous 1 mg subcut ONCE PRN hypoglycemia 10/28/24 10/28/24 Unknown History solution (Gvoke) insulin aspart U-100 100 unit/mL See Protocol subcut TIDAC 10/28/24 10/28/24 1 Day Ago History (3 mL) subcutaneous pen ~10/27/24 insulin degludec 100 unit/mL (3 10 unit subcut DAILY 10/28/24 10/28/24 1 Day Ago History mL) subcutaneous pen (Tresiba ~10/27/24 FlexTouch U-100 insulin) triamcinolone acetonide 0.1 % 1 appl topical BID PRN Skin 10/28/24 10/28/24 Unknown History topical cream Inflamma Physical Exam Vital Signs: Vital Signs: Last Vital Signs Temp 98.8 F 10/28/24 12:27 Pulse 102 H 10/28/24 15:00 Resp 17 10/28/24 15:00 BP 113/61 10/28/24 15:00 Pulse Ox 98 10/28/24 15:00 O2 Del Method Nasal Cannula 10/28/24 15:00 O2 Flow Rate 1.5 10/28/24 15:00 Oxygen Flow Rate 15 10/28/24 09:48 BMI result Body Mass Index 22.9 Const: General: no acute distress, alert and awake Eyes: Sclerae: sclerae normal EOM: EOMs intact bilaterally Neck: Neck: Yes no lymphadenopathy, Yes trachea midline and Yes supple Resp: Effort & Inspection: normal respiratory effort and no respiratory distress Auscultation: clear to auscultation bilaterally Cardio: Rate: tachycardic Rhythm: regular rhythm Heart sounds: no gallops, no murmurs and no rubs GI: Palpation (GI): Soft to palpation and Other GI palpation findings present ( Nontender) Auscultation: normal bowel sounds Extrem: General: Yes no pedal edema, No clubbing and No cyanosis Results Labs 10/28/24 10:00 10/28/24 10:00 Labs: Laboratory Results - last 24 hr 10/28/24 10/28/24 10/28/24 10:00 10:05 10:09 MCV 94.8 MCH 29.0 MCHC 30.6 L RDW 14.6 Plt Count 483 H D MPV 11.2 Immature Gran % (Auto) 0.8 H Neut % (Auto) 53.4 Lymph % (Auto) 34.1 [place] % (Auto) 8.1 Eos % (Auto) 2.9 Baso % (Auto) 0.7 Lymph # (Auto) 7.5 H [place] # (Auto) 1.8 H Eos # (Auto) 0.6 H Baso # (Auto) 0.2 Abs Immat Gran (auto) 0.18 H Absolute Neuts (auto) 11.7 H Absolute Nucleated RBC 0.020 H Nucleated RBC % (auto) 0.1 VBG pH 7.11 L* VBG pCO2 50 VBG pO2 99 VBG HCO3 16 L VBG O2 Saturation 94.0 VBG Base Excess -12.6 Anion Gap 18 Estim Creat Clear Calc 33.2 Estimated GFR 41 POC Glucose Random Glucose 407 H* Lactic Acid 6.9 H* Lactic Acid F/U @ 2Hr Calcium 8.8 D Total Bilirubin 0.3 Direct Bilirubin 0.1 AST 59 H ALT 26 Alkaline Phosphatase 147 H B-Natriuretic Peptide 1616 H Total Protein 6.9 Albumin 4.1 Beta-Hydroxybutyrate 0.12 Urine Color Urine Appearance Urine pH Ur Specific [place] Urine Protein Urine Glucose (UA) Urine Ketones Urine Blood Urine Nitrite Ur Leukocyte Esterase Urine RBC Urine WBC Ur Squamous Epith Cells Urine Bacteria Hyaline Casts 10/28/24 10/28/24 10/28/24 10:13 10:33 13:12 MCV MCH MCHC RDW Plt Count MPV Immature Gran % (Auto) Neut % (Auto) Lymph % (Auto) [place] % (Auto) Eos % (Auto) Baso % (Auto) Lymph # (Auto) [place] # (Auto) Eos # (Auto) Baso # (Auto) Abs Immat Gran (auto) Absolute Neuts (auto) Absolute Nucleated RBC Nucleated RBC % (auto) VBG pH VBG pCO2 VBG pO2 VBG HCO3 VBG O2 Saturation VBG Base Excess Anion Gap Estim Creat Clear Calc Estimated GFR POC Glucose 361 H* Random Glucose Lactic Acid Lactic Acid F/U @ 2Hr 2.2 H* Calcium Total Bilirubin Direct Bilirubin AST ALT Alkaline Phosphatase B-Natriuretic Peptide Total Protein Albumin Beta-Hydroxybutyrate Urine Color Yellow Urine Appearance Clear Urine pH 5.5 Ur Specific [place] 1.015 Urine Protein 100 (2+) H Urine Glucose (UA) >=1000 H Urine Ketones Negative Urine Blood Negative Urine Nitrite Negative Ur Leukocyte Esterase Negative Urine RBC 0-2 Urine WBC 0-5 Ur Squamous Epith Cells 0-2 Urine Bacteria None Seen Hyaline Casts 0-2 Imaging Radiologist's Impressions: Impressions Chest X-Ray 10/28/24 09:35 IMPRESSION: 1. Patchy bibasilar opacities and mild perihilar haziness, suspicious for bibasilar/multifocal pneumonia. Atypical pneumonia is also a possibility. Electronically signed by: Elliott Nolasco MD 10/28/2024 10:55 AM EDT RP Assessment and Plan (1) Flash pulmonary edema: Status: Acute (2) Type 2 diabetes mellitus: Status: Acute (3) CAD (coronary artery disease): Status: Acute Plan Assessment: 78-year-old lady with underlying CAD, diabetes, hypertension admitted with acute respiratory distress secondary to flash pulmonary edema Plan: Neuro: No acute issues. Cardiac: Underlying hypertension, now with cardiac flash pulmonary edema, no evidence of NSTEMI. 2D echo is pending. Pulmonary: Acute hypoxic and hypercapnic respiratory failure secondary to flash pulmonary edema initially requiring noninvasive positive pressure ventilation, now titrated down to room air. Renal: Acute renal failure and lactic metabolic acidosis, likely related to flash pulmonary edema, non oliguric. Endo: No acute issues. GI: No acute issues. ID: Received initial empiric antibiotic coverage, blood cultures are pending. Heme/Onc: No acute issues. Psych: No acute issues. Miscellaneous: No acute issues. Prophylaxis: Heparin Diet: Regular Critical care time spent: 45 minute
[2024-10-28 15:36] LABS: Glucose, Whole Blood 297 mg/dL (60-115)
[2024-10-28 15:55] LABS: ~Lactic Acid-LAB USE ONLY 1.8 mmol/L (0.5-2.0)
[2024-10-28 16:35] LABS: Venous Blood Gas Refer to POC result
[2024-10-28 16:36] LABS: VBG HCO3 24 mmol/L (22-26); VBG O2 % Saturation 75.0 %
[2024-10-28 16:53] LABS: Anion Gap 12 (12-20); Blood Urea Nitrogen 23 mg/dL (9-16); Calcium 8.6 mg/dL (8.4-10.2); Carbon Dioxide 23 mmol/L (22-29); Chloride 110 mmol/L (96-108); Creatinine Clr Calc Pharmacy 27.5; Estimated Glomerular Filt Rate 42; Potassium 3.9 mmol/L (3.3-5.1); Sodium 141 mmol/L (135-145)
[2024-10-28 16:59] LABS: Troponin-I High Sensitivity 104.1 ng/L (<3.5-17.0)
--- NOTE | 2024-10-28 17:28 | HO.SKINPHOTO ---
Location: Right Forearm Category: Wound (edges irregular, scabbed over) Stage: Healing (came from home dressed by visiting nurse) Length: 5cm Width: 1.5cm Location: Left Shoulder Category: Abrasion and Bruise Stage: no evidence of healing/fresh, superficial Location: Left Antecubital Category: Skin Tear Stage: Healing Location: Right Antecubital Category: Vancomycin IV Infiltrate Stage: New Location: Bilateral Legs Category: Abrasions/Scabs Stage: Healing
[2024-10-28 17:44] LABS: Glucose, Whole Blood 238 mg/dL (60-115)
[2024-10-28 20:11] LABS: Glucose, Whole Blood 283 mg/dL (60-115)
[2024-10-29] VITALS (17 sets, daily range): BP systolic 121–169; BP diastolic 60–91; PULSE 58–121; RESP 16–29; TEMP 36.6–37.8; O2SAT 92–100; BMI 22.6
[2024-10-29 05:25] LABS: VBG HCO3 24 mmol/L (22-26); VBG O2 % Saturation 78.0 %
[2024-10-29 05:26] LABS: Venous Blood Gas Refer to POC result
[2024-10-29 05:52] LABS: MANUAL DIFF FLAG NO
[2024-10-29 05:55] LABS: Hematocrit 27.5 % (37.0-47.0); Hemoglobin 9.2 g/dl (12.0-16.0); Imm Gran Abs Auto 0.02 X10*3/uL (0.00-0.03); Imm Gran Pct Auto 0.2 % (0.0-0.4); Lymphocytes Absolute Auto 2.3 X10*3/uL (1.2-4.9); Mean Corpuscular HGB Conc 33.5 g/dl (31.0-35.0); Mean Corpuscular Hemoglobin 29.1 pg (27.0-33.0); Mean Corpuscular Volume 87.0 fL (80.0-98.0); NRBC Abs Auto 0.000 X10*3/uL (0.0-0.012); NRBC Pct Auto 0.0 /100WBC (0.0-0.2); Platelet Count 286 X10*3/uL (160-400); Red Blood Count 3.16 X10*6/uL (4.20-5.50); White Blood Count 9.5 X10*3/uL (4.8-10.8)
[2024-10-29 06:12] LABS: Albumin Level 3.8 g/dL (3.5-5.0); Anion Gap 14 (12-20); Blood Urea Nitrogen 21 mg/dL (9-16); Calcium 8.8 mg/dL (8.4-10.2); Carbon Dioxide 22 mmol/L (22-29); Chloride 111 mmol/L (96-108); Creatinine Clr Calc Pharmacy 30.7; Estimated Glomerular Filt Rate 47; Magnesium 1.5 mg/dL (1.6-2.6); Potassium 2.9 mmol/L (3.3-5.1); Sodium 144 mmol/L (135-145)
[2024-10-29] MEDS: Potassium Chloride ER 20 MEQ TAB.ER.PRT 40 MEQ PO ×2 (06:29→11:27)
[2024-10-29 07:41] LABS: Glucose, Whole Blood 213 mg/dL (60-115)
--- NOTE | 2024-10-29 09:55 | PM.CNCAR ---
History of Present Illness History of Present Illness Date of Service: 10/29/24 Chief complaint: respiratory distress Narrative: This is a cardiology consultation regarding shortness of breath and congestive heart failure. Patient is listed to have coronary artery disease in the history but she denies any history of the same. She does not have any reproduction specialist and she also denies any previous cardiac workup like cardiac catheterization. She states that she does feel short of breath intermittently and she is generally thought to be from asthma. This time, however the shortness of breath kept getting worse and that led to the ER visit and hospitalization. She was thought to be in flash pulmonary edema and she required noninvasive positive pressure ventilation and diuretics and she improved significantly. She also thought to be having infection and hence received empiric antibiotics. Cultures are still pending. Currently, she states she feels better. She is on nasal cannula oxygen. Review of Systems Review of Systems: Yes all other systems are reviewed and are negative Constitutional: Constitutional: Reports as per HPI and Reports no additional constitutional complaints Eyes: Eyes: Reports as per HPI and Denies no additional eye complaints ENT: Denies system reviewed and no additional complaints, except as documented and Reports as per HPI Cardiovascular: Cardiovascular: Reports as per HPI, Reports no additional cardiovascular complaints, Denies acrocyanosis, Denies cool extremities, Denies chest pain, Denies leg edema, Denies lightheadedness, Denies palpitations and Denies dyspnea Respiratory: Respiratory: Reports as per HPI, Denies no additional respiratory complaints and Denies dyspnea Gastrointestinal: Gastrointestinal: Reports as per HPI and Denies no additional gastrointestinal complaints Genitourinary: Genitourinary: Reports as per HPI Musculoskeletal: Musculoskeletal: Reports no additional musculoskeletal complaints and Reports as per HPI Integumentary/Breasts: Skin/Breast: Reports system reviewed and no additional complaints, except as docu Neurologic: Reports system reviewed and no additional complaints, except as documented and Reports as per HPI Psychiatric: Psychiatric: Reports no additional psychiatric complaints and Reports as per HPI Endocrine: Endocrine: Reports no additional endocrine complaints, Reports as per HPI and Denies palpitations Hematologic/Lymphatic: Hematologic/Lymphatic: Reports no additional hematologic/lymphatic complaints and Reports as per HPI Allergic/Immunologic: Allergic/Immunologic: Reports no additional allergic/immunologic complaints and Reports as per HPI [facility] Past Medical History Medical History (Updated 10/29/24 @ 10:00 by Noah Moscoso MD) Type 2 diabetes mellitus Urinary incontinence Chronic calcific pancreatitis Hepatic steatosis Osteoarthritis Hyperlipidemia Chronic kidney disease (CKD) stage G3a/A1, moderately decreased glomerular filtration rate (GFR) between 45-59 mL/min/1.73 square meter and albuminuria creatinine ratio less than 30 mg/g Atherosclerosis of aorta Migraine GERD (gastroesophageal reflux disease) Peripheral neuropathy Insulin dependent type 2 diabetes mellitus CAD (coronary artery disease) HTN (hypertension) Family History Pertinent family history: No pertinent family history. Surgical History Surgical History H/O: hysterectomy History of cholecystectomy History of appendectomy History of arthroplasty of right shoulder Social History Social History Household Members: Spouse Housing: House Do you presently have visiting nurse or other home services: Yes Patient Tobacco Use Status: Former Tobacco user Tobacco use type: Cigarette Years Smoked: 2 Smoked in Last 30 Days: No e-Cigarette/Vaping Use: Former Use Patient Interested in Nicotine Replacement: No Patient Given Instructions on How to Stop Smoking: No Second Hand Smoke Exposure: No Use of substances other than those prescribed or required for medical reasons: No Currently Displaying Signs/Symptoms of Drug Intoxication Withdrawal: No Have you been hit, kicked, punched, or otherwise hurt by someone within the past year? If so, by whom?: No Do you feel safe in your current relationship?: Yes Is there a partner from a previous relationship who is making you feel unsafe now?: No Are you made to feel afraid or neglected: No Advance Directives: Yes Advance Directives on File: Yes Advance Directives Date on File: 02/29/24 Do you have a plan to hurt others: No Plan Recently lost weight without trying: No How much weight loss: Not applicable Eating poorly because of decreased appetite: No Nutrition screen score: 0 Nutrition Risks: No Nutritional Risk Patient : No : No Poor oral hygiene: No service: No Meds Allergies Allergy/AdvReac Type Severity Reaction Status Date / Time semaglutide (From Ozempic) AdvReac Severe hypoglycemi Verified 10/28/24 09:54 a Active Medications: Current Medications Acetaminophen (Acetaminophen 325 Mg Tablet) 650 mg PO Q6H PRN PRN Reason: Headache, Fever, Pain Last Admin: 10/28/24 18:29 Dose: 650 mg Albuterol Sulfate (Albuterol Sulfate 90 Mcg 8 Gm Inhaler) 2 puff INHALE Q4H PRN PRN Reason: Shortness Of Breath Or Wheezing Atorvastatin Calcium (Atorvastatin Calcium 80 Mg Tablet) 80 mg PO DAILY [facility] Last Admin: 10/29/24 07:55 Dose: 80 mg Duloxetine HCl (Duloxetine Hcl 30 Mg Capsule.) 30 mg PO DAILY [facility] Last Admin: 10/29/24 07:55 Dose: 30 mg Heparin Sodium (Porcine) (Heparin Sodium,Porcine 5,000 Unit/Ml Vial) 5,000 unit SUBCUT Q8H [facility] Last Admin: 10/29/24 04:30 Dose: 5,000 unit Insulin Human Lispro (Insulin Lispro 100 Unit/Ml 3 Ml Vial) 0 unit SUBCUT QIDACHS [facility]; Protocol Last Admin: 10/29/24 07:54 Dose: 4 unit Montelukast Sodium (Montelukast Sodium 10 Mg Tablet) 10 mg PO BEDTIME [facility] Last Admin: 10/28/24 20:58 Dose: 10 mg Omeprazole (Omeprazole 40 Mg Capsule.) 40 mg PO BID@0630,1630 [facility] Last Admin: 10/29/24 05:39 Dose: 40 mg Sumatriptan Succinate (Sumatriptan Succinate 100 Mg Tablet) 100 mg PO DAILY MRX1 PRN PRN Reason: migraine Last Admin: 10/28/24 20:59 Dose: 100 mg Zolpidem Tartrate (Zolpidem Tartrate 5 Mg Tablet) 5 mg PO BEDTIME PRN PRN Reason: Insomnia Last Admin: 10/28/24 22:27 Dose: 5 mg Home Medications ?Medication ?Instructions ?Recorded ?Confirmed ?Last Taken ?Type albuterol sulfate 90 mcg/actuation 2 puff inhalation Q4H PRN 02/26/24 10/28/24 Unknown History aerosol inhaler Shortness Of Breath Or Wheezing clopidogrel 75 mg tablet 75 mg PO DAILY 02/26/24 10/28/24 1 Day Ago History ~10/27/24 meclizine 25 mg tablet 25 mg PO QID 02/26/24 10/28/24 1 Day Ago History ~10/27/24 montelukast 10 mg tablet 10 mg PO BEDTIME 02/26/24 10/28/24 1 Day Ago History ~10/27/24 omeprazole 40 mg capsule,delayed 40 mg PO BID@0630,1630 02/26/24 10/28/24 1 Day Ago History release ~10/27/24 potassium chloride 20 mEq 20 meq PO DAILY 02/26/24 10/28/24 1 Day Ago History tablet,extended release ~10/27/24 ropinirole 2 mg tablet 2 mg PO BEDTIME@2030 02/26/24 10/28/24 1 Day Ago History ~10/27/24 rosuvastatin 40 mg tablet 40 mg PO BEDTIME 02/26/24 10/28/24 1 Day Ago History ~10/27/24 sumatriptan succinate 100 mg tablet 100 mg PO DAILY MRX1 PRN migraine 02/26/24 10/28/24 Unknown History zolpidem 5 mg tablet 5 mg PO BEDTIME PRN insomnia 02/26/24 10/28/24 Unknown History duloxetine 30 mg capsule,delayed 30 mg PO DAILY 09/19/24 10/28/24 1 Day Ago History release ~10/27/24 ergocalciferol (vitamin D2) 1,250 1,250 mcg PO MOWEFR 09/19/24 10/28/24 10/26/24 History mcg (50,000 unit) capsule (Vitamin D2) gabapentin 400 mg capsule 400 mg PO TID 09/19/24 10/28/24 1 Day Ago History ~10/27/24 pregabalin 75 mg capsule 75 mg PO BID 09/19/24 10/28/24 1 Day Ago History ~10/27/24 vibegron 75 mg tablet (Gemtesa) 75 mg PO DAILY 09/19/24 10/28/24 1 Day Ago History ~10/27/24 glucagon 1 mg/0.2 mL subcutaneous 1 mg subcut ONCE PRN hypoglycemia 10/28/24 10/28/24 Unknown History solution (Gvoke) insulin aspart U-100 100 unit/mL See Protocol subcut TIDAC 10/28/24 10/28/24 1 Day Ago History (3 mL) subcutaneous pen ~10/27/24 insulin degludec 100 unit/mL (3 10 unit subcut DAILY 10/28/24 10/28/24 1 Day Ago History mL) subcutaneous pen (Tresiba ~10/27/24 FlexTouch U-100 insulin) triamcinolone acetonide 0.1 % 1 appl topical BID PRN Skin 10/28/24 10/28/24 Unknown History topical cream Inflamma Physical Exam Vital Signs: Vital Signs: Last Vital Signs Temp 98.3 F 10/29/24 08:00 Pulse 115 H 10/29/24 09:00 Resp 24 H 10/29/24 09:00 BP 153/81 H 10/29/24 09:00 Pulse Ox 95 10/29/24 09:00 O2 Del Method Nasal Cannula 10/29/24 09:00 O2 Flow Rate 1.5 10/29/24 09:00 Oxygen Flow Rate 15 10/28/24 09:48 BMI result Body Mass Index 22.6 Const: General: comfortable and no acute distress Orientation/consciousness: patient oriented x3 HEENT: Other: Unremarkable Head: Yes normal to inspection Neck: Neck: Yes normal visual inspection Chest: Chest palpation & inspection: normal inspection of the chest Resp: Auscultation: wheezes and diminished lung sounds Cardio: Palpation: normal PMI Heart sounds: S1 normal heart sound present, S2 normal heart sound present, no gallops, no murmurs and no rubs GI: Palpation (GI): Soft to palpation Back/Spine/Pelvis: Other: unremarkable Skin: General skin exam: no rashes or lesions noted Neuro: General: patient oriented x3 Extrem: General: Yes normal to inspection Psych: Mental Status: mental status grossly normal Objective Labs and Meds 10/29/24 05:20 10/29/24 05:20 Lab results: Laboratory Results - last 24 hr 10/28/24 10/28/24 10/28/24 10:00 10:05 10:09 WBC 22.0 H RBC 3.45 L D Hgb 10.0 L Hct 32.7 L D MCV 94.8 MCH 29.0 MCHC 30.6 L RDW 14.6 Plt Count 483 H D MPV 11.2 Immature Gran % (Auto) 0.8 H Neut % (Auto) 53.4 Lymph % (Auto) 34.1 Smith % (Auto) 8.1 Eos % (Auto) 2.9 Baso % (Auto) 0.7 Lymph # (Auto) 7.5 H Smith # (Auto) 1.8 H Eos # (Auto) 0.6 H Baso # (Auto) 0.2 Abs Immat Gran (auto) 0.18 H Absolute Neuts (auto) 11.7 H Absolute Nucleated RBC 0.020 H Nucleated RBC % (auto) 0.1 VBG pH 7.11 L* VBG pCO2 50 VBG pO2 99 VBG HCO3 16 L VBG O2 Saturation 94.0 VBG Base Excess -12.6 Sodium 138 Potassium 4.1 D Chloride 109 H Carbon Dioxide 15 L Anion Gap 18 BUN 21 H Creatinine 1.26 Estim Creat Clear Calc 33.2 Estimated GFR 41 POC Glucose Random Glucose 407 H* Lactic Acid 6.9 H* Lactic Acid F/U @ 2Hr Lactic Acid F/U @ 4Hr Calcium 8.8 D Phosphorus Magnesium Total Bilirubin 0.3 Direct Bilirubin 0.1 AST 59 H ALT 26 Alkaline Phosphatase 147 H Troponin I High Sens 35.4 H B-Natriuretic Peptide 1616 H Total Protein 6.9 Albumin 4.1 Beta-Hydroxybutyrate 0.12 Urine Color Urine Appearance Urine pH Ur Specific [place] Urine Protein Urine Glucose (UA) Urine Ketones Urine Blood Urine Nitrite Ur Leukocyte Esterase Urine RBC Urine WBC Ur Squamous Epith Cells Urine Bacteria Hyaline Casts 10/28/24 10/28/24 10/28/24 10:13 10:33 13:12 WBC RBC Hgb Hct MCV MCH MCHC RDW Plt Count MPV Immature Gran % (Auto) Neut % (Auto) Lymph % (Auto) Smith % (Auto) Eos % (Auto) Baso % (Auto) Lymph # (Auto) Smith # (Auto) Eos # (Auto) Baso # (Auto) Abs Immat Gran (auto) Absolute Neuts (auto) Absolute Nucleated RBC Nucleated RBC % (auto) VBG pH VBG pCO2 VBG pO2 VBG HCO3 VBG O2 Saturation VBG Base Excess Sodium Potassium Chloride Carbon Dioxide Anion Gap BUN Creatinine Estim Creat Clear Calc Estimated GFR POC Glucose 361 H* Random Glucose Lactic Acid Lactic Acid F/U @ 2Hr 2.2 H* Lactic Acid F/U @ 4Hr Calcium Phosphorus Magnesium Total Bilirubin Direct Bilirubin AST ALT Alkaline Phosphatase Troponin I High Sens B-Natriuretic Peptide Total Protein Albumin Beta-Hydroxybutyrate Urine Color Yellow Urine Appearance Clear Urine pH 5.5 Ur Specific [place] 1.015 Urine Protein 100 (2+) H Urine Glucose (UA) >=1000 H Urine Ketones Negative Urine Blood Negative Urine Nitrite Negative Ur Leukocyte Esterase Negative Urine RBC 0-2 Urine WBC 0-5 Ur Squamous Epith Cells 0-2 Urine Bacteria None Seen Hyaline Casts 0-2 10/28/24 10/28/24 10/28/24 15:31 15:32 16:26 WBC RBC Hgb Hct MCV MCH MCHC RDW Plt Count MPV Immature Gran % (Auto) Neut % (Auto) Lymph % (Auto) Smith % (Auto) Eos % (Auto) Baso % (Auto) Lymph # (Auto) Smith # (Auto) Eos # (Auto) Baso # (Auto) Abs Immat Gran (auto) Absolute Neuts (auto) Absolute Nucleated RBC Nucleated RBC % (auto) VBG pH VBG pCO2 VBG pO2 VBG HCO3 VBG O2 Saturation VBG Base Excess Sodium 141 Potassium 3.9 Chloride 110 H Carbon Dioxide 23 Anion Gap 12 BUN 23 H Creatinine 1.25 Estim Creat Clear Calc 27.5 Estimated GFR 42 POC Glucose 297 H Random Glucose 273 H Lactic Acid Lactic Acid F/U @ 2Hr Lactic Acid F/U @ 4Hr 1.8 Calcium 8.6 Phosphorus Magnesium Total Bilirubin Direct Bilirubin AST ALT Alkaline Phosphatase Troponin I High Sens 104.1 H* D B-Natriuretic Peptide Total Protein Albumin Beta-Hydroxybutyrate Urine Color Urine Appearance Urine pH Ur Specific [place] Urine Protein Urine Glucose (UA) Urine Ketones Urine Blood Urine Nitrite Ur Leukocyte Esterase Urine RBC Urine WBC Ur Squamous Epith Cells Urine Bacteria Hyaline Casts 10/28/24 10/28/24 10/28/24 16:32 17:40 20:06 WBC RBC Hgb Hct MCV MCH MCHC RDW Plt Count MPV Immature Gran % (Auto) Neut % (Auto) Lymph % (Auto) Smith % (Auto) Eos % (Auto) Baso % (Auto) Lymph # (Auto) Smith # (Auto) Eos # (Auto) Baso # (Auto) Abs Immat Gran (auto) Absolute Neuts (auto) Absolute Nucleated RBC Nucleated RBC % (auto) VBG pH 7.39 VBG pCO2 40 VBG pO2 49 VBG HCO3 24 VBG O2 Saturation 75.0 VBG Base Excess 0.0 Sodium Potassium Chloride Carbon Dioxide Anion Gap BUN Creatinine Estim Creat Clear Calc Estimated GFR POC Glucose 238 H 283 H Random Glucose Lactic Acid Lactic Acid F/U @ 2Hr Lactic Acid F/U @ 4Hr Calcium Phosphorus Magnesium Total Bilirubin Direct Bilirubin AST ALT Alkaline Phosphatase Troponin I High Sens B-Natriuretic Peptide Total Protein Albumin Beta-Hydroxybutyrate Urine Color Urine Appearance Urine pH Ur Specific [place] Urine Protein Urine Glucose (UA) Urine Ketones Urine Blood Urine Nitrite Ur Leukocyte Esterase Urine RBC Urine WBC Ur Squamous Epith Cells Urine Bacteria Hyaline Casts 10/29/24 10/29/24 10/29/24 05:20 05:21 07:38 WBC 9.5 RBC 3.16 L Hgb 9.2 L Hct 27.5 L MCV 87.0 D MCH 29.1 MCHC 33.5 RDW 14.3 Plt Count 286 D MPV 10.9 Immature Gran % (Auto) 0.2 Neut % (Auto) 66.1 Lymph % (Auto) 24.3 Smith % (Auto) 6.8 Eos % (Auto) 2.0 Baso % (Auto) 0.6 Lymph # (Auto) 2.3 Smith # (Auto) 0.7 Eos # (Auto) 0.2 Baso # (Auto) 0.1 Abs Immat Gran (auto) 0.02 Absolute Neuts (auto) 6.3 Absolute Nucleated RBC 0.000 Nucleated RBC % (auto) 0.0 VBG pH 7.50 H VBG pCO2 31 VBG pO2 49 VBG HCO3 24 VBG O2 Saturation 78.0 VBG Base Excess 2.0 Sodium 144 Potassium 2.9 L* D Chloride 111 H Carbon Dioxide 22 Anion Gap 14 BUN 21 H Creatinine 1.12 Estim Creat Clear Calc 30.7 Estimated GFR 47 POC Glucose 213 H Random Glucose 190 H Lactic Acid Lactic Acid F/U @ 2Hr Lactic Acid F/U @ 4Hr Calcium 8.8 Phosphorus 3.1 Magnesium 1.5 L Total Bilirubin Direct Bilirubin AST ALT Alkaline Phosphatase Troponin I High Sens B-Natriuretic Peptide Total Protein Albumin 3.8 Beta-Hydroxybutyrate Urine Color Urine Appearance Urine pH Ur Specific [place] Urine Protein Urine Glucose (UA) Urine Ketones Urine Blood Urine Nitrite Ur Leukocyte Esterase Urine RBC Urine WBC Ur Squamous Epith Cells Urine Bacteria Hyaline Casts ECG Interpretation: EKG shows sinus tachycardia and PVCs. Cannot exclude old septal infarct. Imaging Radiologist's impression: Impressions Chest X-Ray 10/28/24 09:35 IMPRESSION: 1. Patchy bibasilar opacities and mild perihilar haziness, suspicious for bibasilar/multifocal pneumonia. Atypical pneumonia is also a possibility. Electronically signed by: Elliott Nolasco MD 10/28/2024 10:55 AM EDT Assessment and Plan (1) Acute respiratory failure: Status: Acute (2) Acute congestive heart failure: Status: Acute Plan Not entirely clear if her respiratory failure is purely cardiac or if it is a combination of cardiac and pneumonia. Anyway, she has improved on the current therapy. We can keep her on empiric IV diuretics. Echocardiogram with LVEF of 40-45%. Inferoseptal/basal anteroseptal akinesis but difficult to assess wall motion. On telemetry, seems that she has got sinus tachycardia with frequent PACs. Could go into atrial fibrillation. Can add some diltiazem CD 120 mg daily as she is wheezy for beta-blockers. Considering the overall presentation, history of diabetes, need to evaluate for underlying coronary artery disease. When she is medically stable, consider diagnostic catheterization. We will follow up with you. Procedures Date of Service Date of Service: 10/29/24
--- NOTE | 2024-10-29 10:19 | PM.CCPN ---
Subjective Subjective Date of Service: 10/29/24 Interval History: 78-year-old lady with underlying diabetes mellitus, hypertension, CAD, CKD stage 3, chronic pancreatitis, presented with mass with acute respiratory distress and confusion. On initial ER evaluation patient with significant pulmonary edema requiring noninvasive positive pressure ventilatory support started diuretic nitro drip. Also noted to metabolic lactic acidosis with no serum ketones, no significant troponin elevation, no evidence of ischemic hepatitis, but increasing creatinine and brain natriuretic peptide. Patient admitted to intensive came in for close monitoring. No events overnight. Evaluated by Cardiology service. Critical Care Time (minutes): 0 Physical Exam Vital Signs: Vital Signs: Last Vital Signs Temp 98.3 F 10/29/24 08:00 Pulse 118 H 10/29/24 10:00 Resp 19 10/29/24 10:00 BP 152/86 H 10/29/24 10:00 Pulse Ox 100 10/29/24 10:00 O2 Del Method Nasal Cannula 10/29/24 10:00 O2 Flow Rate 1.5 10/29/24 10:00 Oxygen Flow Rate 15 10/28/24 09:48 BMI result Body Mass Index 22.6 Const: General: no acute distress and alert Nutritional Appearance: not obese Orientation/consciousness: Other orientation findings ( oriented) HEENT: Head: Yes atraumatic Eyes: General: appearance normal, both eyes and all related structures Sclerae: sclerae normal EOM: EOMs intact bilaterally Neck: Neck: Yes supple Lymphatic: no lymphadenopathy noted Resp: Effort & Inspection: normal respiratory effort and no use of accessory muscles Auscultation: clear to auscultation bilaterally Cardio: Rate: tachycardic Rhythm: regular rhythm Heart sounds: no gallops, no murmurs and no rubs Skin: General skin exam: other ( warm) Extrem: General: No clubbing, No cyanosis and No edema Objective Data Labs 10/29/24 05:20 10/29/24 05:20 Labs: Laboratory Results - last 24 hr 10/28/24 10/28/24 10/28/24 10:00 10:05 10:13 WBC 22.0 H RBC 3.45 L D Hgb 10.0 L Hct 32.7 L D MCV 94.8 MCH 29.0 MCHC 30.6 L RDW 14.6 Plt Count 483 H D MPV 11.2 Immature Gran % (Auto) 0.8 H Neut % (Auto) 53.4 Lymph % (Auto) 34.1 [place] % (Auto) 8.1 Eos % (Auto) 2.9 Baso % (Auto) 0.7 Lymph # (Auto) 7.5 H [place] # (Auto) 1.8 H Eos # (Auto) 0.6 H Baso # (Auto) 0.2 Abs Immat Gran (auto) 0.18 H Absolute Neuts (auto) 11.7 H Absolute Nucleated RBC 0.020 H Nucleated RBC % (auto) 0.1 VBG pH VBG pCO2 VBG pO2 VBG HCO3 VBG O2 Saturation VBG Base Excess Sodium 138 Potassium 4.1 D Chloride 109 H Carbon Dioxide 15 L Anion Gap 18 BUN 21 H Creatinine 1.26 Estim Creat Clear Calc 33.2 Estimated GFR 41 POC Glucose 361 H* Random Glucose 407 H* Lactic Acid 6.9 H* Lactic Acid F/U @ 2Hr Lactic Acid F/U @ 4Hr Calcium 8.8 D Phosphorus Magnesium Total Bilirubin 0.3 Direct Bilirubin 0.1 AST 59 H ALT 26 Alkaline Phosphatase 147 H Troponin I High Sens 35.4 H B-Natriuretic Peptide 1616 H Total Protein 6.9 Albumin 4.1 Beta-Hydroxybutyrate 0.12 Urine Color Urine Appearance Urine pH Ur Specific [place] Urine Protein Urine Glucose (UA) Urine Ketones Urine Blood Urine Nitrite Ur Leukocyte Esterase Urine RBC Urine WBC Ur Squamous Epith Cells Urine Bacteria Hyaline Casts 10/28/24 10/28/24 10/28/24 10:33 13:12 15:31 WBC RBC Hgb Hct MCV MCH MCHC RDW Plt Count MPV Immature Gran % (Auto) Neut % (Auto) Lymph % (Auto) [place] % (Auto) Eos % (Auto) Baso % (Auto) Lymph # (Auto) [place] # (Auto) Eos # (Auto) Baso # (Auto) Abs Immat Gran (auto) Absolute Neuts (auto) Absolute Nucleated RBC Nucleated RBC % (auto) VBG pH VBG pCO2 VBG pO2 VBG HCO3 VBG O2 Saturation VBG Base Excess Sodium Potassium Chloride Carbon Dioxide Anion Gap BUN Creatinine Estim Creat Clear Calc Estimated GFR POC Glucose Random Glucose Lactic Acid Lactic Acid F/U @ 2Hr 2.2 H* Lactic Acid F/U @ 4Hr 1.8 Calcium Phosphorus Magnesium Total Bilirubin Direct Bilirubin AST ALT Alkaline Phosphatase Troponin I High Sens B-Natriuretic Peptide Total Protein Albumin Beta-Hydroxybutyrate Urine Color Yellow Urine Appearance Clear Urine pH 5.5 Ur Specific [place] 1.015 Urine Protein 100 (2+) H Urine Glucose (UA) >=1000 H Urine Ketones Negative Urine Blood Negative Urine Nitrite Negative Ur Leukocyte Esterase Negative Urine RBC 0-2 Urine WBC 0-5 Ur Squamous Epith Cells 0-2 Urine Bacteria None Seen Hyaline Casts 0-2 10/28/24 10/28/24 10/28/24 15:32 16:26 16:32 WBC RBC Hgb Hct MCV MCH MCHC RDW Plt Count MPV Immature Gran % (Auto) Neut % (Auto) Lymph % (Auto) [place] % (Auto) Eos % (Auto) Baso % (Auto) Lymph # (Auto) [place] # (Auto) Eos # (Auto) Baso # (Auto) Abs Immat Gran (auto) Absolute Neuts (auto) Absolute Nucleated RBC Nucleated RBC % (auto) VBG pH 7.39 VBG pCO2 40 VBG pO2 49 VBG HCO3 24 VBG O2 Saturation 75.0 VBG Base Excess 0.0 Sodium 141 Potassium 3.9 Chloride 110 H Carbon Dioxide 23 Anion Gap 12 BUN 23 H Creatinine 1.25 Estim Creat Clear Calc 27.5 Estimated GFR 42 POC Glucose 297 H Random Glucose 273 H Lactic Acid Lactic Acid F/U @ 2Hr Lactic Acid F/U @ 4Hr Calcium 8.6 Phosphorus Magnesium Total Bilirubin Direct Bilirubin AST ALT Alkaline Phosphatase Troponin I High Sens 104.1 H* D B-Natriuretic Peptide Total Protein Albumin Beta-Hydroxybutyrate Urine Color Urine Appearance Urine pH Ur Specific [place] Urine Protein Urine Glucose (UA) Urine Ketones Urine Blood Urine Nitrite Ur Leukocyte Esterase Urine RBC Urine WBC Ur Squamous Epith Cells Urine Bacteria Hyaline Casts 10/28/24 10/28/24 10/29/24 17:40 20:06 05:20 WBC 9.5 RBC 3.16 L Hgb 9.2 L Hct 27.5 L MCV 87.0 D MCH 29.1 MCHC 33.5 RDW 14.3 Plt Count 286 D MPV 10.9 Immature Gran % (Auto) 0.2 Neut % (Auto) 66.1 Lymph % (Auto) 24.3 [place] % (Auto) 6.8 Eos % (Auto) 2.0 Baso % (Auto) 0.6 Lymph # (Auto) 2.3 [place] # (Auto) 0.7 Eos # (Auto) 0.2 Baso # (Auto) 0.1 Abs Immat Gran (auto) 0.02 Absolute Neuts (auto) 6.3 Absolute Nucleated RBC 0.000 Nucleated RBC % (auto) 0.0 VBG pH VBG pCO2 VBG pO2 VBG HCO3 VBG O2 Saturation VBG Base Excess Sodium 144 Potassium 2.9 L* D Chloride 111 H Carbon Dioxide 22 Anion Gap 14 BUN 21 H Creatinine 1.12 Estim Creat Clear Calc 30.7 Estimated GFR 47 POC Glucose 238 H 283 H Random Glucose 190 H Lactic Acid Lactic Acid F/U @ 2Hr Lactic Acid F/U @ 4Hr Calcium 8.8 Phosphorus 3.1 Magnesium 1.5 L Total Bilirubin Direct Bilirubin AST ALT Alkaline Phosphatase Troponin I High Sens B-Natriuretic Peptide Total Protein Albumin 3.8 Beta-Hydroxybutyrate Urine Color Urine Appearance Urine pH Ur Specific [place] Urine Protein Urine Glucose (UA) Urine Ketones Urine Blood Urine Nitrite Ur Leukocyte Esterase Urine RBC Urine WBC Ur Squamous Epith Cells Urine Bacteria Hyaline Casts 10/29/24 10/29/24 05:21 07:38 WBC RBC Hgb Hct MCV MCH MCHC RDW Plt Count MPV Immature Gran % (Auto) Neut % (Auto) Lymph % (Auto) [place] % (Auto) Eos % (Auto) Baso % (Auto) Lymph # (Auto) [place] # (Auto) Eos # (Auto) Baso # (Auto) Abs Immat Gran (auto) Absolute Neuts (auto) Absolute Nucleated RBC Nucleated RBC % (auto) VBG pH 7.50 H VBG pCO2 31 VBG pO2 49 VBG HCO3 24 VBG O2 Saturation 78.0 VBG Base Excess 2.0 Sodium Potassium Chloride Carbon Dioxide Anion Gap BUN Creatinine Estim Creat Clear Calc Estimated GFR POC Glucose 213 H Random Glucose Lactic Acid Lactic Acid F/U @ 2Hr Lactic Acid F/U @ 4Hr Calcium Phosphorus Magnesium Total Bilirubin Direct Bilirubin AST ALT Alkaline Phosphatase Troponin I High Sens B-Natriuretic Peptide Total Protein Albumin Beta-Hydroxybutyrate Urine Color Urine Appearance Urine pH Ur Specific [place] Urine Protein Urine Glucose (UA) Urine Ketones Urine Blood Urine Nitrite Ur Leukocyte Esterase Urine RBC Urine WBC Ur Squamous Epith Cells Urine Bacteria Hyaline Casts Progress Note: A&P Assessment and plan (1) CAD (coronary artery disease): Status: Acute (2) Acute congestive heart failure: Status: Acute (3) Flash pulmonary edema: Status: Acute (4) Type 2 diabetes mellitus: Status: Acute Plan Assessment: 78-year-old lady with underlying CAD, diabetes, hypertension admitted with acute respiratory distress secondary to flash pulmonary edema Plan: Neuro: No acute issues. Cardiac: Underlying hypertension, now with cardiac flash pulmonary edema resolved, no evidence of NSTEMI. 2D echo with mildly decreased systolic function and some wall motion abnormalities. Evaluated by Cardiology service and will likely require left heart catheterization. Started on Cardizem and diuretic. Pulmonary: Acute hypoxic and hypercapnic respiratory failure secondary to flash pulmonary edema initially requiring noninvasive positive pressure ventilation, now titrated down to room air. Renal: Acute renal failure and lactic metabolic acidosis, likely related to flash pulmonary edema, resolved. Non oliguric. Endo: No acute issues. GI: No acute issues. ID: No acute issues. Heme/Onc: No acute issues. Psych: No acute issues. Miscellaneous: No acute issues. Prophylaxis: Heparin Diet: Regular Quality Stroke Does the patient have a stroke diagnosis?: No VTE Prior VTE?: No VTE Risk Level:: Medical - moderate - high VTE Device Contraindication: Treatment Not Indicated VTE Drug Contraindication: N/A - Med Ordered
[2024-10-29] MEDS: Furosemide 20 MG/2 ML VIAL IVPUSH (10:53)
[2024-10-29] MEDS: Magnesium Sulfate/H2O 2 GM/50 ML PIGGYBACK IV (10:54)
[2024-10-29] MEDS: Ipratropium Bromide 0.5 MG/2.5 ML SOLUTION INHALE ×3 (11:12→18:45)
[2024-10-29] MEDS: dilTIAZem HCL CD 120 MG CAP.ER.DEG PO (11:27)
[2024-10-29 12:19] LABS: Glucose, Whole Blood 188 mg/dL (60-115)
--- NOTE | 2024-10-29 14:06 | MHC.CM.PN ---
IMM 10/29. Pt lives at home with her , uses a cane, receives MOW's through [facility] [employer] and is active with [facility] services. HCP on file and verified. Pts spouse or son will transport her home at discharge. PCP: Dr. Jose Diaz
[2024-10-29 20:39] LABS: Glucose, Whole Blood 340 mg/dL (60-115)
[2024-10-30] VITALS (9 sets, daily range): BP systolic 132–158; BP diastolic 63–86; PULSE 50–110; RESP 15–18; TEMP 36.4–37.1; O2SAT 94–97; BMI 22.0
[2024-10-30 07:21] LABS: Glucose, Whole Blood 313 mg/dL (60-115)
[2024-10-30] MEDS: dilTIAZem HCL CD 120 MG CAP.ER.DEG PO (07:33)
[2024-10-30] MEDS: Furosemide 20 MG/2 ML VIAL IVPUSH (07:34)
[2024-10-30] MEDS: Ipratropium Bromide 0.5 MG/2.5 ML SOLUTION INHALE ×4 (07:48→18:58)
[2024-10-30 08:13] LABS: MANUAL DIFF FLAG NO
[2024-10-30 08:16] LABS: Hematocrit 29.3 % (37.0-47.0); Hemoglobin 9.8 g/dl (12.0-16.0); Imm Gran Abs Auto 0.09 X10*3/uL (0.00-0.03); Imm Gran Pct Auto 0.6 % (0.0-0.4); Lymphocytes Absolute Auto 1.8 X10*3/uL (1.2-4.9); Mean Corpuscular HGB Conc 33.4 g/dl (31.0-35.0); Mean Corpuscular Hemoglobin 29.0 pg (27.0-33.0); Mean Corpuscular Volume 86.7 fL (80.0-98.0); NRBC Abs Auto 0.000 X10*3/uL (0.0-0.012); NRBC Pct Auto 0.0 /100WBC (0.0-0.2); Platelet Count 326 X10*3/uL (160-400); Red Blood Count 3.38 X10*6/uL (4.20-5.50); White Blood Count 13.9 X10*3/uL (4.8-10.8)
[2024-10-30 08:30] LABS: Albumin Level 4.3 g/dL (3.5-5.0); Anion Gap 15 (12-20); Blood Urea Nitrogen 22 mg/dL (9-16); Calcium 9.6 mg/dL (8.4-10.2); Carbon Dioxide 23 mmol/L (22-29); Chloride 101 mmol/L (96-108); Creatinine Clr Calc Pharmacy 30.1; Estimated Glomerular Filt Rate 46; Magnesium 1.8 mg/dL (1.6-2.6); Potassium 3.5 mmol/L (3.3-5.1); Sodium 135 mmol/L (135-145)
--- NOTE | 2024-10-30 08:33 | P.PNIM_ITS ---
Subjective Subjective Date of Service: 10/30/24 Interval History: Follow up on ICU care for acute respiratory distress due to flash pulmonary edema Physical Exam 2 Vital Signs: Vital Signs: Last Vital Signs Temp 98 F 10/30/24 07:12 Pulse 60 10/30/24 07:50 Resp 18 10/30/24 07:50 BP 158/86 H 10/30/24 07:12 Pulse Ox 97 10/30/24 07:12 O2 Del Method Room Air 10/30/24 07:12 O2 Flow Rate 1.5 10/29/24 16:00 Oxygen Flow Rate 15 10/28/24 09:48 BMI result Body Mass Index 22.6 General: AO X 3, no acute distress Resp: CTA bilateral, no accessory muscles used CVS: S1,S2,RRR GI: soft, non tender, non distended Neuro: motor grossly intact, alert Psych: appropriate affect, appropriate insight Objective Data Active Medications Acetaminophen (Acetaminophen 325 Mg Tablet) 650 mg PO Q6H PRN PRN Reason: Headache, Fever, Pain Last Admin: 10/29/24 20:44 Dose: 650 mg Documented By: CHANCE Atorvastatin Calcium (Atorvastatin Calcium 80 Mg Tablet) 80 mg PO DAILY [facility] Last Admin: 10/30/24 07:34 Dose: 80 mg Documented By: DB Diltiazem HCl (Diltiazem Hcl Cd 120 Mg Cap.Er.Deg) 120 mg PO DAILY [facility]; Protocol Last Admin: 10/30/24 07:33 Dose: 120 mg Documented By: DB Duloxetine HCl (Duloxetine Hcl 30 Mg Capsule.Dr) 30 mg PO DAILY [facility] Last Admin: 10/30/24 07:34 Dose: 30 mg Documented By: DB Furosemide (Furosemide 20 Mg/2 Ml Vial) 20 mg IVPUSH DAILY [facility]; Protocol Last Admin: 10/30/24 07:34 Dose: 20 mg Documented By: DB Heparin Sodium (Porcine) (Heparin Sodium,Porcine 5,000 Unit/Ml Vial) 5,000 unit SUBCUT Q8H [facility] Last Admin: 10/30/24 03:24 Dose: 5,000 unit Documented By: CHANCE Insulin Human Lispro (Insulin Lispro 100 Unit/Ml 3 Ml Vial) 0 unit SUBCUT QIDACHS [facility]; Protocol Last Admin: 10/30/24 07:32 Dose: 8 unit Documented By: DB Ipratropium [place] (Ipratropium [place] 0.5 Mg/2.5 Ml Solution) 0.5 mg INHALE RQ4H WHILE AWAKE [facility] Last Admin: 10/30/24 07:48 Dose: 0.5 mg Documented By: DICK Montelukast Sodium (Montelukast Sodium 10 Mg Tablet) 10 mg PO BEDTIME [facility] Last Admin: 10/29/24 20:45 Dose: 10 mg Documented By: CHANCE Omeprazole (Omeprazole 40 Mg Capsule.Dr) 40 mg PO BID@0630,1630 [facility] Last Admin: 10/30/24 06:30 Dose: 40 mg Documented By: CHANCE Sumatriptan Succinate (Sumatriptan Succinate 100 Mg Tablet) 100 mg PO DAILY MRX1 PRN PRN Reason: migraine Last Admin: 10/30/24 03:22 Dose: 100 mg Documented By: CHANCE Zolpidem Tartrate (Zolpidem Tartrate 5 Mg Tablet) 5 mg PO BEDTIME PRN PRN Reason: Insomnia Last Admin: 10/29/24 20:45 Dose: 5 mg Documented By: CHANCE Labs 10/30/24 08:03 10/30/24 08:03 Labs: Laboratory Results - last 24 hr 10/29/24 10/29/24 10/30/24 12:09 20:35 07:11 MCV MCH MCHC RDW Plt Count MPV Immature Gran % (Auto) Neut % (Auto) Lymph % (Auto) [place] % (Auto) Eos % (Auto) Baso % (Auto) Lymph # (Auto) [place] # (Auto) Eos # (Auto) Baso # (Auto) Abs Immat Gran (auto) Absolute Neuts (auto) Absolute Nucleated RBC Nucleated RBC % (auto) Anion Gap Estim Creat Clear Calc Estimated GFR POC Glucose 188 H 340 H 313 H Random Glucose Calcium Phosphorus Magnesium Albumin 10/30/24 08:03 MCV 86.7 MCH 29.0 MCHC 33.4 RDW 14.3 Plt Count 326 MPV 11.2 Immature Gran % (Auto) 0.6 H Neut % (Auto) 80.7 H Lymph % (Auto) 13.1 L [place] % (Auto) 4.6 Eos % (Auto) 0.6 Baso % (Auto) 0.4 Lymph # (Auto) 1.8 [place] # (Auto) 0.6 Eos # (Auto) 0.1 Baso # (Auto) 0.1 Abs Immat Gran (auto) 0.09 H Absolute Neuts (auto) 11.2 H Absolute Nucleated RBC 0.000 Nucleated RBC % (auto) 0.0 Anion Gap 15 Estim Creat Clear Calc 30.1 Estimated GFR 46 POC Glucose Random Glucose 304 H Calcium 9.6 D Phosphorus 3.4 Magnesium 1.8 Albumin 4.3 Microbiology Microbiology Results: Microbiology 10/28/24 10:00 Blood Culture - Preliminary Blood - Venous No growth after 24 hours. 10/28/24 10:02 Blood Culture - Preliminary Blood - Venous No growth after 24 hours. Assessment and Plan (1) Hypoglycemia: Status: Resolved Plan 78F PMH DM, CAD, CKD III, chronic pancreatitis, hepatic steatosis presented with acute respiratory distress and confusion. She was noted to have pulmonary edema and required BiPAP and diuretic drip. Also noted to have lactic acidosis but ketosis, Acute respiratory distress due flash pulmonary edema, was in ICU on BiPAP, and diuretic drip. She is now doing well only Lasix 20 mg daily Diabetes Sliding scale restart resume home insulin after dc Moderate protein calorie malnutrition with unintentional weight loss Nutritional intake encouraged chronic pancreatitis, chronic diarrhea and steatohepatitis unclear etiology outpatient gi follow up stool studies CKD III better than baseline acute hypokalemia replace and monitor dvt prophylaxis - lovenox full code reason for continued hospitalization:pt eval Quality Stroke Does the patient have a stroke diagnosis?: No Reason for No Anti-thrombotic by Day Two: N/A - Med Ordered VTE Prior VTE?: No VTE Risk Level:: Medical - moderate - high VTE Device Contraindication: Treatment Not Indicated VTE Drug Contraindication: N/A - Med Ordered
[2024-10-30 11:09] LABS: Glucose, Whole Blood 261 mg/dL (60-115)
--- NOTE | 2024-10-30 13:02 | PM.PNCARD ---
Subjective Subjective Date of Service: 10/30/24 Interval history: She states that she is feeling better. She has been transferred from ICU to floor. Shortness of breath is improved. She is lying down flat. Review of Systems Review of Systems Yes all other systems are reviewed and are negative Constitutional: Reports as per HPI and Reports no additional constitutional complaints Eyes: Reports as per HPI and Denies no additional eye complaints Denies system reviewed and no additional complaints, except as documented and Reports as per HPI Cardiovascular: Reports as per HPI, Reports no additional cardiovascular complaints, Denies acrocyanosis, Denies cool extremities, Denies chest pain, Denies leg edema, Denies lightheadedness, Denies palpitations and Denies dyspnea Respiratory: Reports as per HPI, Denies no additional respiratory complaints and Denies dyspnea Gastrointestinal: Reports as per HPI and Denies no additional gastrointestinal complaints Genitourinary: Reports as per HPI Musculoskeletal: Reports no additional musculoskeletal complaints and Reports as per HPI Skin/Breast: Reports system reviewed and no additional complaints, except as docu Reports system reviewed and no additional complaints, except as documented and Reports as per HPI Psychiatric: Reports no additional psychiatric complaints and Reports as per HPI Endocrine: Reports no additional endocrine complaints, Reports as per HPI and Denies palpitations Hematologic/Lymphatic: Reports no additional hematologic/lymphatic complaints and Reports as per HPI Allergic/Immunologic: Reports no additional allergic/immunologic complaints and Reports as per HPI Physical Exam Vital Signs: Last Vital Signs Temp 97.5 F 10/30/24 11:08 Pulse 105 H 10/30/24 11:08 Resp 15 10/30/24 11:08 BP 135/63 10/30/24 11:08 Pulse Ox 95 10/30/24 11:08 O2 Del Method Room Air 10/30/24 11:08 O2 Flow Rate 1.5 10/29/24 16:00 Oxygen Flow Rate 15 10/28/24 09:48 BMI result Body Mass Index 22.0 Const General: comfortable and no acute distress Orientation/consciousness: patient oriented x3 HEENT Other: Unremarkable Head: Yes normal to inspection Neck Neck: Yes normal visual inspection Chest Chest palpation & inspection: normal inspection of the chest Resp Other: Bilateral, few inspiratory crackles. Cardio Palpation: normal PMI Heart sounds: S1 normal heart sound present, S2 normal heart sound present, no gallops, no murmurs and no rubs GI Palpation (GI): Soft to palpation Back/Spine/Pelvis Other: unremarkable Skin General skin exam: no rashes or lesions noted Neuro General: patient oriented x3 Extrem General: Yes normal to inspection Psych Mental Status: mental status grossly normal Objective Labs and Meds 10/30/24 08:03 10/30/24 08:03 Lab results: Laboratory Results - last 24 hr 10/29/24 10/30/24 10/30/24 20:35 07:11 08:03 WBC 13.9 H RBC 3.38 L Hgb 9.8 L Hct 29.3 L MCV 86.7 MCH 29.0 MCHC 33.4 RDW 14.3 Plt Count 326 MPV 11.2 Immature Gran % (Auto) 0.6 H Neut % (Auto) 80.7 H Lymph % (Auto) 13.1 L [place] % (Auto) 4.6 Eos % (Auto) 0.6 Baso % (Auto) 0.4 Lymph # (Auto) 1.8 [place] # (Auto) 0.6 Eos # (Auto) 0.1 Baso # (Auto) 0.1 Abs Immat Gran (auto) 0.09 H Absolute Neuts (auto) 11.2 H Absolute Nucleated RBC 0.000 Nucleated RBC % (auto) 0.0 Sodium 135 Potassium 3.5 D Chloride 101 Carbon Dioxide 23 Anion Gap 15 BUN 22 H Creatinine 1.14 Estim Creat Clear Calc 30.1 Estimated GFR 46 POC Glucose 340 H 313 H Random Glucose 304 H Calcium 9.6 D Phosphorus 3.4 Magnesium 1.8 Albumin 4.3 10/30/24 11:04 WBC RBC Hgb Hct MCV MCH MCHC RDW Plt Count MPV Immature Gran % (Auto) Neut % (Auto) Lymph % (Auto) [place] % (Auto) Eos % (Auto) Baso % (Auto) Lymph # (Auto) [place] # (Auto) Eos # (Auto) Baso # (Auto) Abs Immat Gran (auto) Absolute Neuts (auto) Absolute Nucleated RBC Nucleated RBC % (auto) Sodium Potassium Chloride Carbon Dioxide Anion Gap BUN Creatinine Estim Creat Clear Calc Estimated GFR POC Glucose 261 H Random Glucose Calcium Phosphorus Magnesium Albumin Progress Note: A&P Assessment and plan (1) Acute respiratory failure: Status: Acute (2) Acute congestive heart failure: Status: Acute Plan Admitted as acute pulmonary edema but not clear if it is all cardiogenic pulmonary edema or more of asthma. Yesterday, she was quite wheezy but today few basal crackles only. She was treated with diuretics, nitroglycerin drip, BiPAP, nebulizers, IV antibiotics and she improved significantly. Currently on just oxygen and diuretics. Echocardiogram with LVEF of 40-45%. Wall motion difficult to assess but there was question of inferoseptal/basal anteroseptal akinesis. It did not appear that she had a true NSTEMI as the troponins are only slightly elevated. Could be just demand related leak. With a history of longstanding diabetes and the current presentation, she needs workup for underlying coronary disease. Discussed about a diagnostic catheterization and she is willing to proceed. Requested bed at [facility]. Otherwise, very frequent supraventricular ectopy on telemetry and hence there is increased risk of developing atrial fibrillation. She has been started on diltiazem and can continue that for now. Time Spent With Patient Time: Total time managing care of this patient today ____ minutes. Progress Note: Quality Stroke Does the patient have a stroke diagnosis?: No Reason for No Anti-thrombotic by Day Two: N/A - Med Ordered Procedures Date of Service Date of Service: 10/30/24
--- NOTE | 2024-10-30 13:58 | MHC.CM.PN ---
IMM 10/29/24 Patient will transfer to [facility] for a Cardiac Catheterization via ALS. The RN has notified the patients son of the transfer.
[2024-10-30 17:10] LABS: Glucose, Whole Blood 278 mg/dL (60-115)
[2024-10-30 20:31] LABS: Glucose, Whole Blood 341 mg/dL (60-115)
[2024-10-31] VITALS (10 sets, daily range): BP systolic 126–150; BP diastolic 57–80; PULSE 72–106; RESP 16–18; TEMP 36.2–36.9; O2SAT 92–97
[2024-10-31 07:39] LABS: Glucose, Whole Blood 239 mg/dL (60-115)
[2024-10-31] MEDS: Ipratropium Bromide 0.5 MG/2.5 ML SOLUTION INHALE ×3 (07:48→20:10)
[2024-10-31] MEDS: dilTIAZem HCL CD 120 MG CAP.ER.DEG PO (08:15)
[2024-10-31] MEDS: Furosemide 20 MG/2 ML VIAL IVPUSH (08:17)
--- NOTE | 2024-10-31 09:36 | PM.PNCARD ---
Subjective Subjective Date of Service: 10/31/24 Physical Exam Vital Signs: Last Vital Signs Temp 98.3 F 10/31/24 08:00 Pulse 96 10/31/24 08:00 Resp 16 10/31/24 08:00 BP 150/80 H 10/31/24 08:00 Pulse Ox 94 10/31/24 08:00 O2 Del Method Room Air 10/31/24 08:00 O2 Flow Rate 1.5 10/29/24 16:00 Oxygen Flow Rate 15 10/28/24 09:48 BMI result Body Mass Index 22.0 Objective Labs and Meds 10/30/24 08:03 10/30/24 08:03 Lab results: Laboratory Results - last 24 hr 10/30/24 10/30/24 10/30/24 11:04 17:06 20:23 POC Glucose 261 H 278 H 341 H 10/31/24 07:20 POC Glucose 239 H Progress Note: A&P Time Spent With Patient Time: Total time managing care of this patient today ____ minutes. Progress Note: Quality Stroke Does the patient have a stroke diagnosis?: No Reason for No Anti-thrombotic by Day Two: N/A - Med Ordered Procedures Date of Service Date of Service: 10/31/24
--- NOTE | 2024-10-31 09:38 | PM.PNCARD ---
Subjective Subjective Date of Service: 10/31/24 Interval history: Seen and examined at bedside. She is saying that she is feeling better. Waiting for a bed at [facility]. Physical Exam Vital Signs: Last Vital Signs Temp 98.3 F 10/31/24 08:00 Pulse 96 10/31/24 08:00 Resp 16 10/31/24 08:00 BP 150/80 H 10/31/24 08:00 Pulse Ox 94 10/31/24 08:00 O2 Del Method Room Air 10/31/24 08:00 O2 Flow Rate 1.5 10/29/24 16:00 Oxygen Flow Rate 15 10/28/24 09:48 BMI result Body Mass Index 22.0 GENERAL APPEARANCE: in no acute distress, pleasant. NECK: no carotid bruit, mild jugular venous distention. SKIN: no suspicious lesions, warm and dry. HEART: no murmurs, regular rate and rhythm. LUNGS: clear to auscultation bilaterally. ABDOMEN: soft, nontender. EXTREMITIES: no edema. PERIPHERAL PULSES: equal. NEUROLOGIC: No gross deficits, AAO X 3 Objective Labs and Meds 10/30/24 08:03 10/30/24 08:03 Lab results: Laboratory Results - last 24 hr 10/30/24 10/30/24 10/30/24 11:04 17:06 20:23 POC Glucose 261 H 278 H 341 H 10/31/24 07:20 POC Glucose 239 H Progress Note: A&P Assessment and plan (1) Acute congestive heart failure: Status: Acute Plan [age] year female presenting with acute congestive heart failure on background of COPD/asthma. She also had chest tightness on presentation. Mild troponin elevation without any dynamic EKG changes. Mild LV dysfunction on echocardiography. She is waiting to undergo cardiac catheterization. She can be transferred to [facility] once the bed gets available. We will follow along with you. Thank you for allowing me to participate in the care of your patient. Please feel free to contact me if you have any questions. Time Spent With Patient Time: Total time managing care of this patient today ____ minutes. Progress Note: Quality Stroke Does the patient have a stroke diagnosis?: No Reason for No Anti-thrombotic by Day Two: N/A - Med Ordered Procedures Date of Service Date of Service: 10/31/24
--- NOTE | 2024-10-31 11:10 | MHC.CM.PN ---
EMR reviewed, pt is awaiting a bed at [facility], she will transfer there for a cardiac cath.
--- NOTE | 2024-10-31 11:29 | P.PNIM_ITS ---
Subjective Subjective Date of Service: 10/31/24 Interval History: Follow up on ICU care for acute respiratory distress due to flash pulmonary edema Physical Exam 2 Vital Signs: Vital Signs: Last Vital Signs Temp 98.3 F 10/31/24 08:00 Pulse 92 10/31/24 11:15 Resp 16 10/31/24 11:15 BP 150/80 H 10/31/24 08:00 Pulse Ox 94 10/31/24 08:00 O2 Del Method Room Air 10/31/24 08:00 O2 Flow Rate 1.5 10/29/24 16:00 Oxygen Flow Rate 15 10/28/24 09:48 BMI result Body Mass Index 22.0 Objective Data Active Medications Acetaminophen (Acetaminophen 325 Mg Tablet) 650 mg PO Q6H PRN PRN Reason: Headache, Fever, Pain Last Admin: 10/29/24 20:44 Dose: 650 mg Documented By: CHANCE Atorvastatin Calcium (Atorvastatin Calcium 80 Mg Tablet) 80 mg PO DAILY [facility] Last Admin: 10/31/24 08:15 Dose: 80 mg Documented By: RUPAL Clopidogrel Bisulfate (Clopidogrel Bisulfate 75 Mg Tablet) 75 mg PO DAILY [facility] Last Admin: 10/31/24 08:15 Dose: 75 mg Documented By: RPUAL Diltiazem HCl (Diltiazem Hcl Cd 120 Mg Cap.Er.Deg) 120 mg PO DAILY [facility]; Protocol Last Admin: 10/31/24 08:15 Dose: 120 mg Documented By: RUPAL Duloxetine HCl (Duloxetine Hcl 30 Mg Capsule.Dr) 30 mg PO DAILY [facility] Last Admin: 10/31/24 08:14 Dose: 30 mg Documented By: RUPAL Empagliflozin (Empagliflozin 10 Mg Tablet) 10 mg PO DAILY [facility] Last Admin: 10/31/24 08:15 Dose: 10 mg Documented By: RUPAL Furosemide (Furosemide 20 Mg/2 Ml Vial) 20 mg IVPUSH DAILY [facility]; Protocol Last Admin: 10/31/24 08:17 Dose: 20 mg Documented By: RUPAL Gabapentin (Gabapentin 400 Mg Capsule) 400 mg PO TID [facility] Last Admin: 10/31/24 08:15 Dose: 400 mg Documented By: RUPAL Heparin Sodium (Porcine) (Heparin Sodium,Porcine 5,000 Unit/Ml Vial) 5,000 unit SUBCUT Q8H [facility] Last Admin: 10/31/24 05:13 Dose: 5,000 unit Documented By: INDERJIT Insulin Human Lispro (Insulin Lispro 100 Unit/Ml 3 Ml Vial) 0 unit SUBCUT QIDACHS [facility]; Protocol Last Admin: 10/31/24 08:17 Dose: 2 unit Documented By: RUPAL Ipratropium [place] (Ipratropium [place] 0.5 Mg/2.5 Ml Solution) 0.5 mg INHALE RQ4H WHILE AWAKE [facility] Last Admin: 10/31/24 11:13 Dose: 0.5 mg Documented By: VANESSA Montelukast Sodium (Montelukast Sodium 10 Mg Tablet) 10 mg PO BEDTIME [facility] Last Admin: 10/30/24 21:26 Dose: 10 mg Documented By: INDERJIT Omeprazole (Omeprazole 40 Mg Capsule.) 40 mg PO BID@0630,1630 [facility] Last Admin: 10/31/24 05:13 Dose: 40 mg Documented By: INDERJIT Pregabalin (Pregabalin 75 Mg Capsule) 75 mg PO BID [facility] Last Admin: 10/31/24 08:14 Dose: 75 mg Documented By: RUPAL Ropinirole HCl (Ropinirole Hcl 2 Mg Tablet) 2 mg PO BEDTIME@2030 [facility] Last Admin: 10/30/24 21:27 Dose: 2 mg Documented By: INDERJIT Sumatriptan Succinate (Sumatriptan Succinate 100 Mg Tablet) 100 mg PO DAILY MRX1 PRN PRN Reason: migraine Last Admin: 10/31/24 08:15 Dose: 100 mg Documented By: RUPAL Zolpidem Tartrate (Zolpidem Tartrate 5 Mg Tablet) 5 mg PO BEDTIME PRN PRN Reason: Insomnia Last Admin: 10/30/24 21:27 Dose: 5 mg Documented By: INDERJIT Labs 10/30/24 08:03 10/30/24 08:03 Labs: Laboratory Results - last 24 hr 10/30/24 10/30/24 10/31/24 17:06 20:23 07:20 POC Glucose 278 H 341 H 239 H Microbiology Microbiology Results: Microbiology 10/28/24 10:00 Blood Culture - Preliminary Blood - Venous No growth after 48 hours. 10/28/24 10:02 Blood Culture - Preliminary Blood - Venous No growth after 48 hours. Assessment and Plan (1) Hypoglycemia: Status: Resolved Plan 78/F PMH DM, CAD, CKD III, chronic pancreatitis, hepatic steatosis presented with acute respiratory distress and confusion. She was noted to have pulmonary edema and required BiPAP and diuretic drip. Also noted to have lactic acidosis but ketosis, Acute respiratory distress due flash pulmonary edema, was in ICU on BiPAP, and diuretic drip. She is now doing well only Lasix 20 mg daily seen by cardiology with recommendation to transfer to [facility] for cardiac cath Diabetes Sliding scale restart resume home insulin after dc Moderate protein calorie malnutrition with unintentional weight loss Nutritional intake encouraged chronic pancreatitis, chronic diarrhea and steatohepatitis unclear etiology outpatient gi follow up stool studies CKD III better than baseline acute hypokalemia replace and monitor dvt prophylaxis - lovenox full code To [facility] for cardiac cath Quality Stroke Does the patient have a stroke diagnosis?: No Reason for No Anti-thrombotic by Day Two: N/A - Med Ordered VTE Prior VTE?: No VTE Risk Level:: Medical - moderate - high VTE Device Contraindication: Treatment Not Indicated VTE Drug Contraindication: N/A - Med Ordered
[2024-10-31 11:36] LABS: Glucose, Whole Blood 188 mg/dL (60-115)
[2024-10-31 15:56] LABS: Glucose, Whole Blood 378 mg/dL (60-115)
[2024-10-31 20:53] LABS: Glucose, Whole Blood 192 mg/dL (60-115)
[2024-11-01 03:04] VITALS: BP 118/59; PULSE 98; RESP 18; TEMP 36.2; O2SAT 92
[2024-11-01 07:25] LABS: Glucose, Whole Blood 230 mg/dL (60-115)
[2024-11-01 07:57] VITALS: BP 127/66
[2024-11-01] MEDS: Furosemide 20 MG/2 ML VIAL IVPUSH (07:57)
[2024-11-01] MEDS: dilTIAZem HCL CD 120 MG CAP.ER.DEG PO (07:57)
[2024-11-01 08:00] VITALS: BP 127/66; PULSE 92; RESP 16; TEMP 36.9; O2SAT 94
--- NOTE | 2024-11-01 11:32 | PM.DS ---
DS: Providers Provider Date of Service: 11/01/24 Date of admission: 10/28/24 11:20 Date of discharge: 11/01/24 Primary care physician: Jose Diaz MD Consults: 10/29/24 10:06 Consult to Cardiology Routine Consulting Provider: [facility] Reason for consultation: Flash pulmonary edema Has provider been notified: No DS: Diagnosis Discharge Diagnosis (1) Hypoglycemia: Status: Resolved DS: Summary Hospital Course Hospital Course: Chief Complaint: Respiratory distress 78-year-old lady with underlying diabetes mellitus, hypertension, CAD, CKD stage 3, chronic pancreatitis, presented with mass with acute respiratory distress and confusion. On initial ER evaluation patient with significant pulmonary edema requiring noninvasive positive pressure ventilatory support started diuretic nitro drip. Also noted to metabolic lactic acidosis with no serum ketones, no significant troponin elevation, no evidence of ischemic hepatitis, but increasing creatinine and brain natriuretic peptide. Patient admitted to intensive came in for close monitoring. hospital course: Patient was admitted initially to the ICU on BiPAP and Lasix drip, she recovered very rapidly, the etiology of the flash pulmonary edema is unclear. She was transfered out of the ICU the next day and was evaluated by cardiology and recommends further ischemic testing with cardiac catheterization and therefore is being refered to go to [facility] for further evaluation Time Attestation Discharge Coordination Time (in mins): 45 Quality: Safe Use of Opioids Does Pt have an Active Cancer Diagnosis on the Problem List?: No Quality: Stroke Does the patient have a stroke diagnosis?: No Physical Exam Vital Signs: Vital Signs: Selected Entries 11/01/24 08:00 Temperature 98.5 F Pulse Rate 92 Respiratory Rate 16 Blood Pressure 127/66 Pulse Oximetry 94 Oxygen Delivery Me thod Room Air DS: Data Data Completed and Pending Labs on day of discharge: Laboratory Results - last 24 hr 10/29/24 10/29/24 10/30/24 12:09 20:35 07:11 WBC RBC Hgb Hct MCV MCH MCHC RDW Plt Count MPV Immature Gran % (Auto) Neut % (Auto) Lymph % (Auto) Winston % (Auto) Eos % (Auto) Baso % (Auto) Lymph # (Auto) Winston # (Auto) Eos # (Auto) Baso # (Auto) Abs Immat Gran (auto) Absolute Neuts (auto) Absolute Nucleated RBC Nucleated RBC % (auto) Sodium Potassium Chloride Carbon Dioxide Anion Gap BUN Creatinine Estim Creat Clear Calc Estimated GFR POC Glucose 188 H 340 H 313 H Random Glucose Calcium Phosphorus Magnesium Albumin 10/30/24 10/30/24 08:03 11:04 WBC 13.9 H RBC 3.38 L Hgb 9.8 L Hct 29.3 L MCV 86.7 MCH 29.0 MCHC 33.4 RDW 14.3 Plt Count 326 MPV 11.2 Immature Gran % (Auto) 0.6 H Neut % (Auto) 80.7 H Lymph % (Auto) 13.1 L Winston % (Auto) 4.6 Eos % (Auto) 0.6 Baso % (Auto) 0.4 Lymph # (Auto) 1.8 Winston # (Auto) 0.6 Eos # (Auto) 0.1 Baso # (Auto) 0.1 Abs Immat Gran (auto) 0.09 H Absolute Neuts (auto) 11.2 H Absolute Nucleated RBC 0.000 Nucleated RBC % (auto) 0.0 Sodium 135 Potassium 3.5 D Chloride 101 Carbon Dioxide 23 Anion Gap 15 BUN 22 H Creatinine 1.14 Estim Creat Clear Calc 30.1 Estimated GFR 46 POC Glucose 261 H Random Glucose 304 H Calcium 9.6 D Phosphorus 3.4 Magnesium 1.8 Albumin 4.3 Preliminary micro results at discharge 10/28/24 10:00 Blood Culture - Preliminary Blood - Venous No growth after 24 hours. 10/28/24 10:02 Blood Culture - Preliminary Blood - Venous No growth after 24 hours. Discharge Plan Discharge Anticipated Discharge Date/Time: 10/30/24 11:44 Patient Disposition: Xfer Acute Care Hospital Discharge Diagnosis: Acute hypoxic resp failure due to flash pulmonary edema Referrals: Jose Diaz MD [Primary Care Provider, Medical] - 1 Week Discharge Medications: New furosemide [Lasix] 20 mg tablet 20 mg PO DAILY Qty: 90 0RF Continued Jardiance 10 mg tablet 10 mg PO DAILY 30 Days Qty: 30 2RF sumatriptan succinate 100 mg tablet 100 mg PO DAILY MRX1 PRN (Reason: migraine) clopidogrel 75 mg tablet 75 mg PO DAILY omeprazole 40 mg capsule,delayed release(DR/EC) 40 mg PO BID@0630,1630 meclizine 25 mg tablet 25 mg PO QID ropinirole 2 mg tablet 2 mg PO BEDTIME@2030 montelukast 10 mg tablet 10 mg PO BEDTIME zolpidem 5 mg tablet 5 mg PO BEDTIME PRN (Reason: insomnia) rosuvastatin 40 mg tablet 40 mg PO BEDTIME potassium chloride 20 mEq tablet extended release 20 meq PO DAILY albuterol sulfate 90 mcg/actuation Hfa Aerosol Inhaler 2 puff INHALATION Q4H PRN (Reason: Shortness Of Breath Or Wheezing) ergocalciferol (vitamin D2) [Vitamin D2] 1,250 mcg (50,000 unit) capsule 1,250 mcg PO MOWEFR duloxetine 30 mg capsule,delayed release(DR/EC) 30 mg PO DAILY pregabalin 75 mg capsule 75 mg PO BID Gemtesa 75 mg tablet 75 mg PO DAILY gabapentin 400 mg capsule 400 mg PO TID triamcinolone acetonide 0.1 % cream 1 appl topical BID PRN (Reason: Skin Inflamma) Rx Instructions: APPLY UP TO TWO TIMES A DAY TO AFFECTED AREAS ON LEGS FOR 2 WEEKS. TAKE 1 WEEK BREAK. REPEAT NEEDED. Gvoke 1 mg/0.2 mL solution 1 mg subcut ONCE MDD may repeat in 15 min PRN (Reason: hypoglycemia) Rx Instructions: until target blood sugar attained insulin aspart U-100 100 unit/mL (3 mL) insulin pen See Protocol subcut TIDAC MDD 24 units Protocol: Insulin Correction Scale Less than or equal to 110 ---- Give (units): 0 111 to 150 Give (units): 0 151 to 200 Give (units): 2 201 to 250 Give (units): 4 251 to 300 Give (units): 6 301 to 350 Give (units): 8 Greater than 350 Give (units): 10 Call MD if Blood Glucose > : 350 Rx Instructions: 151-200 2 units 201-250 4 units 251-300 6 units over 300 8u break/lunch supper only 6 units subcutaneously 3 times a day; tid before meals NOte to pharmacy: 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 Discharge Orders: Discharge Order (Routine); Ordered 10/30/24 Ordered By: Randy Jordan Diet: Advance to usual diet Activity on Discharge: As tolerated Stand Alone Forms: Patient Portal Discharge page Print Language: Occitan Care Plan Goals: recovery from pulmonary edema Health Concerns: acute respriatory failure and pulmonary edema Plan of Treatment: take Lasix as recommended and follow up with your doctor Assessment: see above Discharge Date/Time: 11/01/24 11:21
--- NOTE | 2024-11-25 18:43 | P.CDIM_ITS ---
PROVIDER RESPONSE TEXT: To clarify, the appropriate diagnosis supported by the clinical indicators: Acute Flash Pulmonary Edema only, no CHF QUERY TEXT: PHYSICIAN'S DOCUMENTATION REQUEST Date of Query: 11/17/2024 02:01 PM EDT Patient Name: Sp Ornelas Admit Date: 10/28/2024 Dear Randy Jordan MD, A review of the medical record indicates additional documentation may be needed. Please review below and update the documentation accordingly. Clinical Indicators: patient admitted for Acute Pulmonary Edema and treated with noninvasive positive pressure ventilatory support and diuretic nitro drip BNP 1616 Echocardiogram with LVEF of 40-45% Per Cardiology Consult 10/31/24: presenting with acute congestive heart failure Please clarify the following: Acute Flash Pulmonary Edema only, no CHF Acute Systolic CHF was present on admission and is still being monitored, evaluated, or treated Acute Systolic CHF was ruled out Acute Systolic CHF is still a likely, suspected, probable diagnosis Other (explain) Clinically unable to determine (explain) Thank you, Annalise Xavier RN Use of terms such as suspected, likely, concern for, or probable (associated with a specific diagnosis that is being evaluated, monitored, or treated as if it exists) are acceptable and can be coded in the inpatient setting, when documented at the time of discharge. Please use your independent medical judgment in providing your response. THIS QUERY IS PART OF THE PERMANENT MEDICAL RECORD
== END 2024-11-01 11:21 | disposition short-term general hospital (02) | DRG 189 ==
LOC: HO.ED 11:13 → HO.EDOVER 11:21 → HO.ICU 12:05 → HO.IMC 10-29 10:39
PROVIDERS: Internal Medicine; Student in an Organized Health Care Education/Training Program; Admitting Provider Internal Medicine Pulmonary Disease; Emergency Provider Emergency Medicine; PCP Internal Medicine; Visit Provider Internal Medicine
DX: J81.0 Acute pulmonary edema (principal); J96.01 Acute respiratory failure with hypoxia; J96.02 Acute respiratory failure with hypercapnia; N17.9 Acute kidney failure, unspecified; E44.0 Moderate protein-calorie malnutrition; K86.1 Other chronic pancreatitis; I25.10 Atherosclerotic heart disease of native coronary artery without angina pectoris; E87.6 Hypokalemia; E11.22 Type 2 diabetes mellitus with diabetic chronic kidney disease; I12.9 Hypertensive chronic kidney disease with stage 1 through stage 4 chronic kidney disease, or unspecified chronic kidney disease; K76.0 Fatty (change of) liver, not elsewhere classified; K52.9 Noninfective gastroenteritis and colitis, unspecified; N18.30 Chronic kidney disease, stage 3 unspecified; Z68.22 Body mass index [BMI] 22.0-22.9, adult; Z87.891 Personal history of nicotine dependence; Z79.4 Long term (current) use of insulin; Z79.02 Long term (current) use of antithrombotics/antiplatelets; Z79.899 Other long term (current) drug therapy
CPT/HCPCS: 36415; 71045; 80048; 80076; 81001; 82010; 82040; 82803; 82947; 83605; 83735; 83880; 84100; 84484; 85025; 87040; 93005; 93306; 94640; 99285; J1644; J1938; J2305; J2543; J3374; J3475; Q9957

== ENCOUNTER → 2024-10-28 09:55 | Outpatient (BNV) | payer MEDICARE, MEDICAID, SELFPAY | PROVIDERS: Emergency Provider Emergency Medicine; PCP Internal Medicine; Visit Provider Radiology Diagnostic Radiology | DX: R91.8 Other nonspecific abnormal finding of lung field (principal) | CPT/HCPCS: 71045 ==

== ENCOUNTER 2024-10-28 11:20 | Outpatient (BNV) | payer MEDICARE, MEDICAID, SELFPAY | END 2024-10-28 12:00 | PROVIDERS: Admitting Provider Internal Medicine Pulmonary Disease; Emergency Provider Emergency Medicine; PCP Internal Medicine; Visit Provider Internal Medicine | DX: I42.2 Other hypertrophic cardiomyopathy (principal); I35.8 Other nonrheumatic aortic valve disorders; I31.39 Other pericardial effusion (noninflammatory) | CPT/HCPCS: 93306 ==

== ENCOUNTER → 2024-10-28 11:20 | Outpatient (BNV) | payer MEDICARE, MEDICAID, SELFPAY | PROVIDERS: Admitting Provider Internal Medicine Pulmonary Disease; Emergency Provider Emergency Medicine; PCP Internal Medicine; Visit Provider Internal Medicine | DX: J96.00 Acute respiratory failure, unspecified whether with hypoxia or hypercapnia (principal); I50.9 Heart failure, unspecified | CPT/HCPCS: 99223 ==

== ENCOUNTER → 2024-10-28 11:20 | Outpatient (BNV) | payer MEDICARE, MEDICAID, SELFPAY | PROVIDERS: Admitting Provider Internal Medicine Pulmonary Disease; Emergency Provider Emergency Medicine; PCP Internal Medicine; Visit Provider Internal Medicine | DX: E16.2 Hypoglycemia, unspecified (principal) | CPT/HCPCS: 99232; 99239 ==

== ENCOUNTER → 2024-10-28 11:20 | Outpatient (BNV) | payer MEDICARE, MEDICAID, SELFPAY | PROVIDERS: Admitting Provider Internal Medicine Pulmonary Disease; Emergency Provider Emergency Medicine; PCP Internal Medicine; Visit Provider Internal Medicine Pulmonary Disease | DX: J81.0 Acute pulmonary edema (principal); E11.9 Type 2 diabetes mellitus without complications; I25.10 Atherosclerotic heart disease of native coronary artery without angina pectoris; J96.01 Acute respiratory failure with hypoxia; J96.02 Acute respiratory failure with hypercapnia | CPT/HCPCS: 99232; 99291 ==

== ENCOUNTER → 2024-11-01 23:59 | Outpatient (BNV) | payer MEDICARE, MEDICAID, SELFPAY | PROVIDERS: PCP Internal Medicine; Visit Provider Internal Medicine Cardiovascular Disease | DX: I21.4 Non-ST elevation (NSTEMI) myocardial infarction (principal) | CPT/HCPCS: 93458; 99152 ==

== ENCOUNTER 2024-11-17 13:36 | Outpatient (AMB) | payer MEDICARE, MEDICAID, SELFPAY ==
[2024-11-17 13:38] VITALS: BP 122/68; PULSE 113; BMI 20.7
--- NOTE | 2024-11-17 13:38 | MHC.OFFVIS ---
Vital Signs 11/17/24 13:38 Height 5 ft Weight 105 lb 13.15 oz BMI 20.7 BP 122/68 Blood Pressure Location Lt brachial Position Sitting Pulse 113 H Pulse Source Pulse Oximeter [place] [facility] [place] [facility] [place] Allergies semaglutide (From Ozempic) Adverse Reaction (Severe, Verified 10/28/24 09:54) hypoglycemia Medication List - Last Reconciled 11/17/24 by Noah Moscoso MD albuterol sulfate 90 mcg/actuation 2 puffs inhalation Q4H PRN clopidogrel 75 mg PO DAILY duloxetine 30 mg PO DAILY empagliflozin (Jardiance) 10 mg PO DAILY 30 days ergocalciferol (vitamin D2) (Vitamin D2) 1,250 mcg PO MOWEFR furosemide (Lasix) 20 mg PO DAILY gabapentin 400 mg PO TID glucagon (Gvoke) 1 mg subcut ONCE PRN MDD may repeat in 15 min insulin aspart U-100 See Protocol sliding scale doses subcut TIDAC MDD 24 units insulin degludec (Tresiba FlexTouch U-100 insulin) 10 units subcut DAILY meclizine 25 mg PO QID montelukast 10 mg PO BEDTIME omeprazole 40 mg PO BID@0630,1630 potassium chloride ER 20 mEq PO DAILY pregabalin 75 mg PO BID ropinirole 2 mg PO BEDTIME@2030 rosuvastatin 40 mg PO BEDTIME sumatriptan succinate 100 mg PO DAILY MRX1 PRN triamcinolone acetonide 0.1% 1 appl topical BID PRN vibegron (Gemtesa) 75 mg PO DAILY zolpidem 5 mg PO BEDTIME PRN HPI Comments Details: Sp returns for follow-up after recent hospitalization. She has a history of asthma and does get short of breath intermittently. However, this time as symptoms persisted and that led to ER visit. She was treated as pulmonary edema and required noninvasive ventilation. Of thought to have some concurrent infection and got antibiotics. Then echocardiogram had shown some LV dysfunction and suspicion of wall motion abnormalities. Underwent diagnostic catheterization. Had right coronary artery stenosis but it was not thought to explain her presentation. No interventions performed. Background of diabetes. Underweight. Overall, she states that she generally feels okay. No new complaints. Getting along as she did before. [facility] Medical History (Updated 11/17/24 @ 13:48 by Noah Moscoso MD) Type 2 diabetes mellitus Urinary incontinence Chronic calcific pancreatitis Hepatic steatosis Osteoarthritis Hyperlipidemia Chronic kidney disease (CKD) stage G3a/A1, moderately decreased glomerular filtration rate (GFR) between 45-59 mL/min/1.73 square meter and albuminuria creatinine ratio less than 30 mg/g Atherosclerosis of aorta Migraine GERD (gastroesophageal reflux disease) Peripheral neuropathy Insulin dependent type 2 diabetes mellitus CAD (coronary artery disease) HTN (hypertension) Surgical History H/O: hysterectomy History of cholecystectomy History of appendectomy History of arthroplasty of right shoulder Social History Household Members: Spouse Housing: House Do you presently have visiting nurse or other home services: Yes Patient Tobacco Use Status: Former Tobacco user Tobacco use type: Cigarette Years Smoked: 2 e-Cigarette/Vaping Use: Former Use Second Hand Smoke Exposure: No Advance Directives Date on File: 02/29/24 service: No Review of Systems Const Denies weakness ENT Denies dizziness Card Denies chest pain, Denies chest pain with activity, Denies syncope, Denies rapid heart rate, Denies pedal edema, Denies edema, Denies leg edema, Denies lightheadedness, Denies palpitations, Denies dyspnea, Denies dyspnea on exertion and Denies orthopnea Resp Denies cough, Denies dyspnea and Denies dyspnea on exertion GI Denies hematochezia and Denies change in stool character Musc Denies abnormal gait, Denies muscle cramps, Denies muscle weakness, Denies numbness, Denies radiating pain into limb and Denies tingling Neuro Denies abnormal gait, Denies dizziness, Denies syncope, Denies numbness, Denies tingling and Denies weakness Endo Denies palpitations Physical Exam Vital Signs: Last Vital Signs Pulse 113 H 11/17/24 13:38 BP 122/68 11/17/24 13:38 BMI result Body Mass Index 20.7 Const General: comfortable and no acute distress Orientation/consciousness: patient oriented x3 HEENT Other: Unremarkable Head: Yes normal to inspection Neck Neck: Yes normal visual inspection Chest Chest palpation & inspection: normal inspection of the chest Resp Auscultation: rhonchi Cardio Palpation: normal PMI Heart sounds: S1 normal heart sound present, S2 normal heart sound present, no gallops, no murmurs and no rubs GI Palpation (GI): Soft to palpation Back/Spine/Pelvis Other: unremarkable Skin General skin exam: no rashes or lesions noted Neuro General: patient oriented x3 Extrem General: Yes normal to inspection Psych Mental Status: mental status grossly normal Assessment & Plan Assessment & Plan (1) Atherosclerotic cardiovascular disease: Code(s): I25.10 - Atherosclerotic heart disease of [place] coronary artery without angina pectoris Category: Medical Plan: Cardiac catheterization-minimal irregularities in LAD and circumflex. Small RCA with 70-80% stenosis. Medical management. Continue statins. Listed to be on Plavix. [facility] from [facility]-LDL 18 mg/dL and triglycerides 138 mg/dL. Creatinine 1.27. (2) Chronic congestive heart failure: Code(s): I50.9 - Heart failure, unspecified Category: Medical Plan: Not entirely clear with the reason presentation was from asthma or heart failure or combination of both. Clinically, she seems euvolemic. Continue diuretics. Continue Jardiance. We will recheck echocardiogram. Plan Discussion Notes I discussed with the patient the importance of monitoring her heart function, given the slightly reduced function observed during her recent hospitalization. We agreed on a follow-up echocardiogram in three months. We also reviewed her asthma management, emphasizing the avoidance of known allergens and monitoring of symptoms. Patient was informed and verbally consented to the use of an ambient scribe for clinic note documentation during this visit. Orders: Orders CA echo transthoracic complete Today I50.9 - Heart failure, unspecified Patient Instructions: - Schedule a follow-up echocardiogram in three months to check heart function. - Continue asthma management and avoid known allergens. Coding Level of Care Code Est Pt Level 4 (09487) Complex EM visit Add On G2211 Diagnoses Atherosclerotic cardiovascular disease I25.10 Chronic congestive heart failure I50.9
--- OUTSIDE RECORDS SUMMARY | 2024-11-17 13:39 | XMS_ITS | Clinical Summary ---
Author Organization LL [address] [place] [address] Address [address] [place] [address] Phone Care Team Providers Care Java Web Developer Name Role Phone Unavailable Primary Care Provider [...] - 2023-2 5 season) 2023 Depression Screening 04/13/2024 Falls Risk Assessment 04/29/2024 Hepatitis C Screening [...]
--- OUTSIDE RECORDS SUMMARY | 2024-11-17 13:39 | XMS_ITS | Encounter Summary ---
Author Organization [facility] Address [address] [place] [address] Phone Care Team Providers Care Sheeting Puller Name Role Phone Jose Diaz MD Primary Care Provider [phone] Encounter Details Date Type Department Care Team (Late Contact Info) Description 05/01/2023 Documentation Only [facility] [address] [place] [address] Momo Perez MD [address] [place] [address] [place] [address] Social History Tobacco Use Types [...] Encounters Date Type Department Care Team (Late st Contact Info) Description 01/03/2025 3:15 PM EDT Office Visit [facility] [address] [place] [id number] Momo Perez MD [address] [place] [address] [place] [address] 02/21/2025 2:15 PM EST Office Visit [facility] [address] [place] [address] [address] [place] [address] Momo Perez [facility] [address] [facility] [place] [address] documented as of this encounter Visit Diagnoses Not on filedocumented in this encounter Care Teams Sheeting Puller Relationship Specialty Start Date End Date Jose Diaz MD [employer]DER [address] [place] [address] [address] [place] PCP - General 02/15/19 documented as of this encounter
== END 2024-11-17 13:59 | disposition home or self-care (01) ==
LOC: HO.HCS 13:36
PROVIDERS: PCP Internal Medicine; Visit Provider Internal Medicine
DX: I25.10 Atherosclerotic heart disease of native coronary artery without angina pectoris (principal); I50.9 Heart failure, unspecified
CPT/HCPCS: 99214; G2211

== ENCOUNTER → 2024-11-17 13:36 | Outpatient (BNVA) | payer MEDICARE, MEDICAID, SELFPAY | PROVIDERS: PCP Internal Medicine; Visit Provider Internal Medicine | DX: I25.10 Atherosclerotic heart disease of native coronary artery without angina pectoris (principal); I50.9 Heart failure, unspecified | CPT/HCPCS: 99212 ==

== ENCOUNTER → 2024-12-29 14:11 | Outpatient (REF) | payer MEDICARE, MEDICAID, SELFPAY ==
--- NOTE | 2024-12-29 14:12 | CA_ITS ---
Transthoracic Echocardiogram Patient (Last, First, Middle): Sp Ornelas M Gender: Female Date of : 1945 Age: 79 Procedure Date: 12/29/2024 Procedure Type: Transthoracic Echocardiogram Location: OP Height: 152.4 cm Weight: 46.72 kg BSA: 1.41 m2 Heart Rate: 107 bpm BP: 120 / 64 mmHg Fire Patrol: SB Referring MD: Noah Moscoso MD Symptoms: I50.9 - Heart failure, unspecified Study Quality: Adequate ECG Rhythm: Tachycardia Conclusions: - The left ventricular systolic function is moderately decreased. The calculated ejection fraction is 39% by biplane method. - The inferoseptal wall, the basal inferior, basal anteroseptal, and basal inferolateral segments are akinetic. - There is mild to moderate mitral valve regurgitation. - Mild pulmonary hypertension is present. Findings Left Ventricle Mildly increased left ventricular cavity size. The left ventricular systolic function is moderately decreased. The calculated ejection fraction is 39% by biplane method. There is evidence of regional wall motion abnormalities. Evidence suggests grade I (mild) diastolic dysfunction. There is mild septal and mild basal asymmetric hypertrophy. Wall Motion Rest Echo Findings The inferoseptal wall, the basal inferior, basal anteroseptal, and basal inferolateral segments are akinetic. Right Ventricle Normal right ventricular cavity size. There is low normal right ventricular systolic function. Atria The left atrium is moderately dilated. Patent foramen ovale detected using by color Doppler. The right atrium is normal in size. Aortic Valve There is a normal trileaflet aortic valve. There is mild calcification of the aortic valve. There is no aortic valve stenosis. There is no aortic valve regurgitation. Mitral Valve There is mild mitral annular calcification. There is mild to moderate mitral valve regurgitation. There is no mitral valve stenosis. Pulmonic Valve The pulmonic valve is likely normal. Tricuspid Valve There is trace tricuspid valve regurgitation. Mild pulmonary hypertension is present. Great Vessels The asc aorta is normal in size. Venous The inferior vena cava is normal in size and collapses less than 50% with inspiration. Pericardium/Pleural There is no evidence of pericardial effusion. Prior Study Comparison No significant change compared to prior study dated: 10/28/2024. Measurements 2D Linear Measurements IVSd: 0.47 0.6-0.9/0.6-1.0 cm LVIDd: 5.60 3.9-5.3/4.2-5.9 cm LVIDd Index: 3.97 2.4-3.2/2.2-3.1 cm/m2 LVIDs: 4.84 2.0-3.6 cm LVPWd: 0.53 0.7-1.1 cm LA Diam: 3.80 2.7-3.8/3.0-4.0 cm LAIDs Index: 2.70 1.5-2.3 cm/m2 LV Mass: 115.95 67-162/88-224 g LV Mass Index: 82.23 43-95/49-115 g/m2 LVOT Diam: 2.10 3.0+(-)1.3 cm 2D Systolic Function EF 4C: 33.90 >55% EF 2C: 44.10 >55% EF BiP: 38.50 >55% Mitral Valve MV Pk E: 0.96 MV PK A: 0.83 MV Decel Time: 103.00 E/A: 1.20 E'Lateral: 7.29 E'Medial: 5.55 E/E' Med: 17.20 E/E' Lat: 13.10 PHT: 30.00 MVA PHT: 7.33 Decel [place]: 9.23 MR Vol - PW Dopp: 34.10 MR VTI: 1.55 MR ERO: 22.00 MR Alias Zaki: 0.38 MR RAD: 0.70 Aortic Valve AoV Pk Zaki: 0.98 AoV Pk Grad: 4.00 LEYLA: 2.73 LVOT LVOT Pk Zaki: 0.78 LVOT Mn Zaki: 0.54 LVOT VTI: 0.12 LVOT Pk Grad: 2.00 LVOT Mn Grad: 1.00 LVOT Diam: 2.10 LVOT Area: 3.46 Diastolic Function MV Pk E: 0.96 MV Pk A: 0.83 E/A: 1.20 E'Medial: 5.55 E/E' Med: 17.20 E' Laterial: 7.29 E/E' Lat: 13.10 Right Ventricle TAPSE (mm): 17.00 TVS' Zaki: 11.50 Tricuspid Valve TR Pk Zaki: 3.02 TR Pk Grad: 36.00 RA Press: 8.00 RVSP: 44.00 Great Vessels Aorta Sinus of Valsalva: 3.20 2.0-3.5 cm Ao Asc: 3.40 2.1-3.4 cm Pulmonary Veins Pulm Vein S/D 0.60 Pulmonary Valve PV Pk Zaki: 0.87 Peak PV Grad: 3.00 Updated in Other Vendor System with Status of Final Noah Moscoso MD electronically signed on 12/31/2024 11:56:05 AM with status of Final
--- OUTSIDE RECORDS SUMMARY | 2024-12-29 16:06 | XMS_ITS | Clinical Summary ---
Author Organization LL [address] [place] [address] Address [address] [place] [address] Phone Care Team Providers Care Meat Counter Clerk Name Role Phone Unavailable Primary Care Provider [...] nts (1 - 1-dose 75+ series) 12/19/2022 Depression Screening 04/13/2024 Falls Risk Assessment 04/29/2024 Hepatitis C Screening 04/29/2024 Medicare Annual Wellness Visit 04/29/2024 Osteoporosis Screening (Bone Density Screening) 04/29/2024 Social Influencers of Health Screening 04/29/2024 COVID-19 Vaccine (1 - 2023-2 5 season) 2024 Influenza Vaccine (#1) 2024 HIB Vaccines Aged [...]
--- OUTSIDE RECORDS SUMMARY | 2024-12-29 16:06 | XMS_ITS | Encounter Summary ---
Author Organization [facility] Address [address] [place] [address] Care Team Providers Care Sleep Scientist Name Role Phone Unavailable Primary Care Provider Unavailabl e Encounter Details Date Type Department Care Team (Late st Contact Info) Description 04/29/2024 Lab Requisition [facility] - Main Lab [address] [place] [address] Gary Edwards MD [address] [facility] [address] [place] [address] Acute cystitis without hematuria Social History Tobacco Use Types Packs/Day Years Used Date Smoking Tobacco: Never Assessed Comments Unknown Sex and Gender Information Value Date Recorded Sex Assigned at Not on file Legal Sex Female 1:14 PM EST Gender Identity Not on file Sexual Orientation Not on file documented as of this encounter Plan of Treatment Not on file documented as of this encounter Procedures Procedure Name Priority Date/Time Associated Diagnosis Comments CULTURE URINE Routine 04/29/2024 11:17 AM EST Acute cystitis without hematuria documented in this encounter Results * Culture urine (04/29/2024 11:17 AM EST) Culture, Urine <10,000 CFU/mL gram negative bacilli, insignificant count, no further workup 04/30/2024 10:22 AM EST [facility] Urine Urine specimen obtained by clean catch procedure / Unknown 04/29/2024 11:17 AM EST 04/29/2024 1:19 PM EST Gary Edwards MD LAB MICROBIOLOGY - GENERA L ORDERABLES Final Result [facility] ([facility]) [facility] [address] [place] [address], documented in this encounter Visit Diagnoses Diagnosis Acute cystitis without hematuria documented in this encounter
--- OUTSIDE RECORDS SUMMARY | 2024-12-29 16:06 | XMS_ITS | Encounter Summary ---
Author Organization [facility] Address [address] [place] [address] Phone Care Team Providers Care Supervisor Beehive Kiln Name Role Phone Jose Diaz MD Primary Care Provider [phone] Encounter Details Date Type Department Care Team (Late Contact Info) Description 05/01/2023 Documentation Only [facility] [address] [place] [address] Momo Perez MD [address] [place] [address] [place] [address] Social History Tobacco Use Types [...] Visit [facility] [address] [place] [phone] Momo Perez MD [address] [place] [address] [place] [address] 02/21/2025 2:15 PM EST Office Visit [facility] [address] [place] [address] [address] [place] [address] Mmoo Perez MD [address] [facility] [place] [address] documented as of this encounter Visit Diagnoses Not on filedocumented in this encounter Care Teams Supervisor Beehive Kiln Relationship Specialty Start Date End Date Jose Diaz MD [place] [employer]ICER [address] [place] [address] [address] [place] PCP - General 02/15/19 documented as of this encounter
--- OUTSIDE RECORDS SUMMARY | 2024-12-29 16:06 | XMS_ITS | Clinical Summary ---
Author Organization [facility] [place], Address [address] [place] [address] [address] [place] [address] Phone Care Team Providers Care Song Lyricist Name Role Phone Jose Diaz MD Primary Care Provider Allergies Active Allergy Reactions Criticality Noted Date Comments Sulfamethoxazole-Trimethoprim Other (see comments) 04/28/2019 Medications clopidogrel (PLAVIX) 75 MG tablet Take 1 tablet by mouth 1 (one) time each day Active gabapentin (NEURONTIN) 300 MG capsule Take 300 mg by mouth 1 (one) time each day Active zolpidem (AMBIEN) 5 MG tablet Take 1 tablet by mouth at bed time Active rosuvastatin (CRESTOR) 40 MG tablet Take 40 mg by mouth 1 (one) time each day Active insulin detemir (LEVEMIR) 100 UNIT/ML injection Inject under the skin 26 units qam and 22 units qpm Active rOPINIRole (REQUIP) 0.5 MG tablet Take 0.5 mg by mouth every night Active cefaclor (CECLOR) 250 MG capsule Take 250 mg by mouth 07/03/19 22 Active meclizine (ANTIVERT) 25 MG tablet Take 25 mg by mouth in the morning and 25 mg at noon and 25 mg in the evening and 25 mg before bedtime. 08/20/19 22 Active montelukast (SINGULAIR) 10 MG tablet Take 10 mg by mouth 1 (one) time each day in the evening 08/19/19 22 Active omeprazole (PriLOSEC) [address] capsule Take 40 mg by mouth in the morning and 40 mg in the evening. 08/21/19 22 Active traMADol (ULTRAM) 50 MG tablet TAKE ONE TABLET BY MOUTH EVERY 6 HOURS NEEDED FOR PAIN 08/22/19 22 Active docusate sodium (COLACE) 100 MG capsule Take 100 mg by mouth in the morning and 100 mg in the evening. Active valsartan (Diovan) 160 MG tablet Take 1 tablet (160 mg total) by mouth 1 (one) time each day 30 tablet 5 01/08/20 22 Active acetaminophen (TYLENOL) 325 MG tablet Take by mouth every 6 (six) hours if needed for mild pain Active Glucagon, rDNA, (Glucagon Emergency) 1 MG kit Inject as directed A ctive hydroCHLOROthia zide 25 MG tablet Take 25 mg by mouth 1 (one) time each day Active SUMAtriptan (IMITREX) 100 MG tablet Take 100 mg by mouth 1 (one) time if needed for migraine Active Semaglutide,0.2 5 or 0.5MG/DOS, (Ozempic, 0.25 or 0.5 MG/DOSE,) 2 MG/1.5ML solution pen-injector Inject under the skin Active potassium chloride (KLOR-CON) 20 MEQ packet Take 20 mEq by mouth in the morning and 20 mEq in the evening. Active senna (SENOKOT) 8.6 MG tablet Take 1 tablet by mouth 1 (one) time each day Active atenolol (TENORMIN) 25 MG tablet Take 1 tablet (25 mg total) by mouth 1 (one) time each day 90 tablet 3 10/04/19 23 Active Dapagliflozin Propanediol 10 MG tablet Take 10 mg by mouth 1 (one) time each day with breakfast 90 tablet 3 05/22/19 24 Active Basaglar KwikPen 100 UNIT/ML injection INJECT SUBCUTANEOUSLY 32 UNITS IN THE MORNING & 32 UNITS IN THE EVENING. Active trospium (SANCTURA) 20 MG tablet Take 20 mg by mouth in the morning and 20 mg in the evening. 01/16/20 24 Active Gemtesa 75 MG tablet Take 1 tablet by mouth 1 (one) time each day 02/13/20 24 Active furosemide (Lasix) 40 MG tablet Take 1 tablet (40 mg total) by mouth 1 (one) time each day 30 tablet 3 08/24/19 25 Active ergocalciferol 1.25 MG (99241 UT) capsule TAKE 1 CAPSULE BY MOUTH EVERY THURSDAY AND THURSDAY. 26 capsule 3 11/02/19 25 Active Active Problems Problem Noted Date Diagnosed Date Stage 3b chronic kidney disease 08/23/2024 Restless leg syndrome 09/22/2022 Stage 3a chronic kidney disease 04/28/2019 Hypertensive disorder 04/28/2019 Renal disorder due to type 2 diabetes mellitus 0 04/28/2019 Resolved Problems Problem Noted Date Diagnosed Date Resolved Date Hypo-osmolality and hyponatremia 08/07/2020 02/18/2021 Vitamin D deficiency 01/03/2020 021 Anemia 04/28/2019 02/18/2021 Polyneuropathy due to diabetes mellitus 04/28/2019 02/18/2021 Pure hypercholesterolemia 04/28/2019 Renal stone 04/28/2019 02/18/2021 Encounters Date Type Department Care Team Description 11/08/2024 Office Communication [facility] [place], [address] [place] [phone] Balbina Howard 11/01/2024 Refill [facility] [address] [place] [address] Momo Perez MD from Last 3 Months Immunizations Immunization Administration Dates Next Due Hep B, Unspecified 09/17/2006, 7,03/17/2006,01/13/2006 ,08/28/2005,07/24/2005 Influenza Whole 01/06/2022, 9,01/30/2012,01/14/2010 ,03/02/2008,03/17/2006 Influenza, Unspecified 02/09/2022,2020,01/14/2021,01/05/2020 ,01/18/2019,01/21/2018,01/06/2017, 6,01/10/2015,01/11/2014,02/21/2013 Pfizer SARS-COV-2 01/14/2022,01/21/2021,07/25/19 21,07/03/2020 Pneumococcal Conjugate 13-Valent 06/14/2014 Pneumococcal Polysaccharide 09/29/2016, 5 Pneumococcal, Unspecified 09/26/2022 SARS-CoV-2, Unspecified 12/27/2021,08/11/2021 Td, Unspecified 04/13/2004 Tdap 06/14/2014 Zoster 04/22/2019,01/18/2019,09/27/2008 Family History Medical History Relation Comments Cancer Mother bladder cancer Hypertension Sibling Sisters/two sist ers Relation Status Comments Father Mother Sibling Social History Tobacco Use Types Packs/Day Years [...] on file Sexual Orientation Not on file Last Filed Vital Signs Vital Sign Reading Time Taken Comments Blood Pressure 126/68 01/18/2019 12:00 PM EDT Pulse 74 01/18/2019 12:00 PM EDT Temperature - - Respiratory Rate 16 01/18/2019 12:00 PM EDT Oxygen Saturation - - Inhaled Oxygen Concentration - - Weight 56.2 kg (124 lb) 01/18/2019 12:00 PM EDT Height 152.4 cm (5') 01/18/2019 12:00 PM EDT Body Mass Index 24.22 01/18/2019 12:00 PM EDT Plan of Treatment Upcoming Encounters Date Type Department Care Team (Late st Contact Info) Description 01/03/2025 3:15 PM EDT Office Visit [facility] [place] [address] [place] [address] Momo Perez MD [address] [place] [address] [place] [address] 02/21/2025 2:15 PM EST Office Visit [facility] [place] [address] [place] [address] Momo Perez MD [address] [place] [address] [place] [address] Health Maintenance Due Date Last Done Comments Diabetes: Ophthalmology Exam 04/28/2019 Diabetes: Pedal Pulse Checked 04/28/2019 Diabetes: Sensory Foot Exam 04/28/2019 Diabetes: Visual Foot Exam 04/28/2019 Diabetes: Hemoglobin A1C 05/17/2024 024, 07/31/2023, 03/17/2023, Additional history exists Influenza Vaccine (#1) 2024 2, 01/06/2022, 02/04/2021, Additional history exists Hepatitis B Vaccine Aged Out 09/17/2006, 04/29/2006, 03/17/2006, Additional history exists No longer eligible based on patient's age to complete this topic Pneumococcal Vaccine: 50+ Years Completed 09/26/2022, 09/29/2016, 06/14/2014, Additional history exists Pneumococcal Vaccine: Peds (0 to 5 Years) and At-Risk Patients (6 to 49 Years) Discontinued 09/26/2022, 09/29/2016, 06/14/2014, Additional history exists Procedures Procedure Name Priority Date/Time Associated Diagnosis Comments HEMOGLOBIN A1C Routine 02/15/2024 10:28 AM EST from Last 3 Months or Most Recently Relevant to Health Maintenance Results * (ABNORMAL) Hemoglobin A1c (02/15/2024 10:28 AM EST) Hemoglobin A1C 6.6(H) 4.8 - 5.6 % [facility] [place] Comment: Prediabetes: 5.7 - 6.4 Diabetes: >6.4 Glycemic control for adults with diabetes: <7.0 02/15/2024 10:2 8 AM EST 02/15/2024 us Momo Perez MD LAB BLOOD ORDERABLES Final Resul t [facility] [address] [place] [address] from Last 3 Months or Most Recently Relevant to Health Maintenance Insurance Medicare Medicaid [place] Care Teams Song Lyricist Relationship Specialty Start Date End Date Jose Diaz MD [facility] STEPHAN MEDICAL HISTORIAN [address] [place] [address] [place] PCP - General 02/15/19
--- OUTSIDE RECORDS SUMMARY | 2024-12-29 16:06 | XMS_ITS | Encounter Summary ---
Author Organization [facility] Address [address] [place] [address] Phone Care Team Providers Care Chemical Processing Equipment Repairer Name Role Phone Jose Diaz MD Primary Care Provider Encounter Details Date Type Department Care Team (Late Contact Info) Description 08/11/2024 Orders Only [facility] [address] [place] [address] [place] [address] Stage 3b chronic kidney disease (HCC) (Primary Dx); Anemia in chronic kidney disease Social History Tobacco Use Types Packs/Day Years [...] Visit [facility] [address] [place] [address] Momo Perez MD [address] [place] [address] [place] [address] 02/21/2025 2:15 PM EST Office Visit [facility] [address] [place] [address] Momo Perez MD [address] [facility] [place] [address] documented as of this encounter Procedures Procedure Name Priority Date/Time Associated Diagnosis Comments IRON PANEL (FE, TIBC, TSAT) Routine 08/16/2024 10:54 AM EDT Stage 3b chronic kidney disease (HCC) Anemia in chronic kidney disease URINE ALBUMIN / CREATININE RATIO Routine 08/16/2024 10:54 AM EDT Stage 3b chronic kidney disease (HCC) Anemia in chronic kidney disease HEPATITIS B CORE ANTIBODY, IGM Routine 08/16/2024 10:54 AM EDT Stage 3b chronic kidney disease (HCC) Anemia in chronic kidney disease HEPATITIS B SURFACE ANTIBODY QUANT Routine 08/16/2024 10:54 AM EDT Stage 3b chronic kidney disease (HCC) Anemia in chronic kidney disease HEPATITIS B SURFACE ANTIGEN Routine 08/16/2024 10:54 AM EDT Stage 3b chronic kidney disease (HCC) Anemia in chronic kidney disease CBC AND DIFFERENTIAL Routine 08/16/2024 10:54 AM EDT Stage 3b chronic kidney disease (HCC) Anemia in chronic kidney disease FERRITIN Routine 08/16/2024 10:54 AM EDT Stage 3b chronic kidney disease (HCC) Anemia in chronic kidney disease RENAL FUNCTION PANEL Routine 08/16/2024 10:54 AM EDT Stage 3b chronic kidney disease (HCC) Anemia in chronic kidney disease documented in this encounter Results * Urine Albumin / Creatinine Ratio (08/16/2024 10:54 AM EDT) Creatinine, Ur 31.8 Not Estab. mg/dL [facility] Albumin, Urine 8.3 Not Estab. ug/mL [facility] Albumin/Creatin ine Ratio 26 0 - 29 mg/g creat [facility] Comment: Normal: 0 - 29 Moderately increased: 30 - 300 Severely increased: >300 Urine specimen (specimen) Urine specimen obtained by clean catch procedure / Unknown 08/16/2024 10:54 AM EDT 08/16/2024 us Momo Perez MD LAB URINE ORDERABLES Final Resul t [facility] [address] [place] [phone] * Hepatitis B core antibody, IgM (08/16/2024 10:54 AM EDT) Hep B Core IgM Negative Negative [facility] Blood specimen (specimen) Venous blood / Unknown 08/16/2024 10:54 AM EDT 08/16/2024 us Momo Perez MD LAB BLOOD ORDERABLES Final Resul t Performing Organization Address City/[facility]/ZIP Co de Phone Number [facility] [address], [address] [place] [address] * Hepatitis B surface antigen (08/16/2024 10:54 AM EDT) Hep B Surface Ag Negative Negative [facility] Blood specimen (specimen) Venous blood / Unknown 08/16/2024 10:54 AM EDT 08/16/2024 us Momo Perez MD LAB BLOOD ORDERABLES Final Resul t Performing Organization Address City/[facility]/ZIP Co de Phone Number [facility] [address], [address] [place] [address] * (ABNORMAL) Hepatitis B surface antibody (08/16/2024 10:54 AM EDT) Hepatitis B Surface Ab 6.6(L) Immunity>1 0 mIU/mL [facility] Comment: Status of Immunity Anti-HBs Level Inconsistent with Immunity 0.0 - 10.0 Consistent with Immunity >10.0 Blood specimen (specimen) Venous blood / Unknown 08/16/2024 10:54 AM EDT 08/16/2024 us Momo Perez MD LAB BLOOD ORDERABLES Final Resul t [facility] [employer] [address] [facility], [address] [place] [address] * (ABNORMAL) Renal Function Panel (08/16/2024 10:54 AM EDT) Pathologist [facility] Glucose 94 70 - 99 mg/dL [facility] BUN 9 8 - 27 mg/dL [facility] Creatinine 1.23(H) 0.57 - 1.00 mg/dL [facility] eGFR CKD-EPI CR 2020 46(L) >59 mL/min/1.7 3 [facility] BUN/Creatinine Ratio 7(L) 12 - 28 [facility] Sodium 138 134 - 144 mmol/L [facility] Potassium 3.6 3.5 - 5.2 mmol/L [facility] Chloride 105 96 - 106 mmol/L [facility] Bicarbonate (CO2) 19(L) 20 - 29 mmol/L [facility] Calcium 8.5(L) 8.7 - 10.3 mg/dL [facility] Albumin 3.1(L) 3.8 - 4.8 g/dL [facility] Phosphorus 3.0 3.0 - 4.3 mg/dL [facility] Blood specimen (specimen) Venous blood / Unknown 08/16/2024 10:54 AM EDT 08/16/2024 us Momo Perez MD LAB BLOOD ORDERABLES Final Resul t [facility] [address] [place] [address] * Ferritin (08/16/2024 10:54 AM EDT) Pathologist [facility] Ferritin 54 15 - 150 ng/mL [facility] Blood specimen (specimen) Venous blood / Unknown 08/16/2024 10:54 AM EDT 08/16/2024 us Momo Perez MD LAB BLOOD ORDERABLES Final Resul t Performing Organization Address City/[facility]/ZIP Co de Phone Number [facility] [address] [place] [address] * (ABNORMAL) Iron Panel (Fe, TIBC, TSAT) (08/16/2024 10:54 AM EDT) UIBC 126 118 - 369 ug/dL [facility] TIBC 188(L) 250 - 450 ug/dL [facility] Iron 62 27 - 139 ug/dL [facility] Iron Saturation (TSat) 33 15 - 55 % [facility] Blood specimen (specimen) Venous blood / Unknown 08/16/2024 10:54 AM EDT 08/16/2024 us Momo Perez MD LAB BLOOD ORDERABLES Final Resul t [facility] [address] [place] [address] * (ABNORMAL) CBC and Differential (08/16/2024 10:54 AM EDT) WBC 9.9 3.4 - 10.8 x10E3/uL [facility] RBC 3.45(L) 3.77 - 5.28 x10E6/uL [facility] Hemoglobin 10.6(L) 11.1 - 15.9 g/dL [facility] Hematocrit 33.9(L) 34.0 - 46.6 % [facility] MCV 98(H) 79 - 97 fL [facility] MCH 30.7 26.6 - 33.0 pg [facility] MCHC 31.3(L) 31.5 - 35.7 g/dL [facility] RDW 15.0 11.7 - 15.4 % [facility] Platelets 271 150 - 450 x10E3/uL [facility] Neutrophils Relative 67 Not Estab. % [facility] Lymphocytes Relative 25 Not Estab. % [facility] Monocytes 6 Not Estab. % [facility] Eosinophils Relative 1 Not Estab. % [facility] Basophils Relative 1 Not Estab. % [facility] Neutrophils Absolute 6.6 1.4 - 7.0 x10E3/uL [facility] Lymphocytes Absolute 2.5 0.7 - 3.1 x10E3/uL [facility] Monocytes Absolute 0.6 0.1 - 0.9 x10E3/uL [facility] Eosinophils Absolute 0.1 0.0 - 0.4 x10E3/uL [facility] Basophils Absolute 0.1 0.0 - 0.2 x10E3/uL [facility] Immature Granulocytes 0 Not Estab. % [facility] Immature Grans (Absolute) 0.0 0.0 - 0.1 x10E3/uL [facility] Blood specimen (specimen) Venous blood / Unknown 08/16/2024 10:54 AM EDT 08/16/2024 us Momo Perez MD LAB BLOOD ORDERABLES Final Resul t [facility] [address] [place] [phone] documented in this encounter Visit Diagnoses Diagnosis Stage 3b chronic kidney disease (HCC)- Primary Anemia in chronic kidney disease documented in this encounter Care Teams Chemical Processing Equipment Repairer Relationship Specialty Start Date End Date Jose Diaz MD [employer] [address] [place] [address] PCP - General 02/15/19 documented as of this encounter
--- OUTSIDE RECORDS SUMMARY | 2024-12-29 16:06 | XMS_ITS | Encounter Summary ---
Author Organization [facility] Address [address] [place] [address] Phone Care Team Providers Care Vice President Sales Name Role Phone Jose Diaz MD Primary Care Provider [phone] Encounter Details Date Type Department Care Team (Late Contact Info) Description 01/06/2022 Documentation Only [facility] [address] [place] [address] Dedra Gustafson [address] [place] [phone] Social History Tobacco Use Types Packs/Day Years [...] Visit [facility] [address] [place] [address] Momo Perez MD [address] [place] [address] [place] [phone] 02/21/2025 2:15 PM EST Office Visit [facility] [address] [place] [address] Momo Perez MD [address] [place] [address] [place] [address] documented as of this encounter Visit Diagnoses Not on filedocumented in this encounter Care Teams Vice President Sales Relationship Specialty Start Date End Date Jose Diaz MD [place] [address] [place] [address] [address] [place] MD PCP - General 02/15/19 documented as of this encounter
== END ==
LOC: HO.CARD 14:11
PROVIDERS: Visit Provider Internal Medicine
DX: I50.9 Heart failure, unspecified (principal)
CPT/HCPCS: 93306

== ENCOUNTER → 2024-12-29 14:12 | Outpatient (BNV) | payer MEDICARE, MEDICAID, SELFPAY | PROVIDERS: Visit Provider Internal Medicine | DX: I27.20 Pulmonary hypertension, unspecified (principal); I42.2 Other hypertrophic cardiomyopathy; I34.0 Nonrheumatic mitral (valve) insufficiency; Q21.12 Patent foramen ovale | CPT/HCPCS: 93306 ==